=== PATIENT | female | born 1970 | race Caucasian/White ===

== ENCOUNTER 2023-08-17 20:33 | Inpatient (IN) | payer OTHER, SELFPAY ==
[2023-08-17 18:20] VITALS: BP 179/96
[2023-08-17 18:44] LABS: % Basophils 0.9 % (0-2); % Eosinophils 0.1 % (0-6); % Immature Granulocytes 2.6 % (0-0.5); % Lymphocytes 6.8 % (20.5-51.1); % Monocytes 7.5 % (1.7-9.3); % Neutrophils 82.1 % (42.2-75.2); Absolute Basophils 0.2 10^3/uL (0-0.2); Absolute Immature Granulocytes 0.6 10^3/uL (0-0.05); Absolute Lymphocytes 1.4 10^3/uL (1.2-3.4); Absolute Monocytes 1.6 10^3/uL (0.1-0.6); Absolute Neutrophils 17.2 10^3/uL (1.4-6.5); Hematocrit 40.3 % (37.0-47.0); Hemoglobin 13.4 g/dL (12.0-16.0); Mean Corp Hgb Conc. 33.3 g/dL (33.0-37.0); Mean Corpuscular Hgb 26.4 pg (27.0-31.0); Mean Corpuscular Volume 79.5 fL (81.0-99.0); Mean Platelet Volume 9.8 fL (7.4-10.4); Nucleated Red Blood Cells % 0 %; Platelet Count 399 10^3/uL (130-400); Red Blood Cell Count 5.07 10^6/uL (4.20-5.40); Red Cell Dist. Width 12.3 % (11.5-14.5); White Blood Cell Count 20.9 10^3/uL (4.8-10.8)
--- NOTE | 2023-08-17 18:52 | ED.GENMED ---
History of Present Illness
General
Chief Complaint: Skin Problem
Source: patient
Exam Limitations: none
Time Seen by Provider: 08/17/23 18:40
Travel History
Have you had any contact with someone who has COVID-19?: No
Do you have any symptoms of coronavirus? Fever > 100 degrees, chills, cough, shortness of breath, sore throat, loss of taste or smell, muscle aches, or headache?: No
History of Present Illness
History of Present Illness:
This is a 53 year old female that comes in with c/o right breast pain. States that she started on Thursday with this breast fullness and redness. States that now there is a black are and there is leakage with a fowl smell. States that she has a fever
and that there is pain in the right breast that she is not sleeping. States that she has nausea and some dizziness. Denies any chills, chest pain, SOB, abd pain, vomiting, diarrhea, headache, urinary burning.
Past History
Past History
ED Past Medical History: Other (IBS)
ED Past Surgical History: None
Social History
Tobacco: Non-smoker
Alcohol: None
Personal:
Living: with family
Review of Systems
Review of Systems
All Other Systems: ROS reviewed and negative except as documented in HPI and ROS
Constitutional: Reports fever (on and off); Denies chills
EENT: Reports no symptoms
Respiratory: Denies cough or trouble breathing
Cardiac: Reports no symptoms; Denies chest pain
ABD/GI: Reports no symptoms; Denies abdominal pain, nausea, vomiting or diarrhea
: Reports no symptoms; Denies dysuria, frequency or urgency
Musculoskeletal: Reports no symptoms
Skin: Reports other (right breast redness with black area)
Neurological: Reports dizzy; Denies headache
Psychiatric: Reports no symptoms
Phy Exam
General Physical Exam
General Presentation: no apparent distress (Temp at this time is 102.4)
General age: appears stated age
General Skin: warm and dry
General Habitus: normal
General Mental: alert
General Hydration: appears well hydrated
ENT Exam
ENT Exam: TM's normal, pharynx normal and neck supple
Eye Exam
Eye Exam: EOMI
Cardiovascular Exam
Cardiovascular Exam: regular rate/rhythm, no edema, no murmur and normal peripheral pulses
Pulmonary Exam
Pulmonary Exam: lungs clear, no respiratory distress, no rales, chest non tender, no crackles, no rhonchi, no wheezing and no cough
Gastrointestinal Exam
Gastrointestinal Exam: normal bowel sounds, non tender, soft, no organomegaly, no pulsatile mass and non distended
Musculoskeletal Exam
Musculoskeletal Exam: full ROM and no edema
Skin Exam
Skin Exam: normal color, no petechia and redness (Right lower half of breast red with necrotic area from about 3 to 6 o'clock. Breast is hard with fowl smell and slightly yellow tinged drainage)
Psychiatric Exam
Psychiatric Exam: normal mood/affect
Course
Orders/Labs/Results
Orders:
Orders
08/17/23 18:29
Comprehensive Metabolic Panel Urgent
Lactate Level [Lactic Acid] Urgent
Blood Culture Urgent
AMY Source: Blood/Venous
Specimen Description:
08/17/23 18:30
Complete Blood Count/With Diff Urgent
08/17/23 18:51
Vancomycin 1 Gram/200 ml [Vancocin] 1 gram in 200 ml IV NOW
08/17/23 18:52
Acetaminophen [Tylenol] 1,000 mg PO NOW STA
HYDROmorphone [Dilaudid] 1 mg IV NOW STA
Ondansetron Injectable [Zofran] 4 mg IV NOW STA
08/17/23 19:30
Admit/Transfer Patient As Directed
Co-Sign Provider:
Level of Care: Inpatient admission
Assign to:: Medical/Surgical
Physician / Group: lars
Diagnosis: breast cellulitis
Reason for Hospitalization: breast cellulitis
Expected length of stay greater than two midnights?: Yes
ELOS- Estimated Length of Stay in days: 2
I certify the patient meets the requirements for IP care: Yes
Code Status As Directed
Resuscitation Status: Full Code
Wound Culture [Wound/Abscess/Other Culture] Urgent
AMY Source: Breast
Specimen Description: Right
Date Specimen was Collected: 08/17/23
Time Specimen was Collected: 19:20
08/17/23 19:36
US Breast Right Ltd Urgent
Comment:
Reason For Exam: abscess, cancer
08/17/23 19:44
Ibuprofen [Motrin] 400 mg PO Q6HPRN PRN
08/17/23 20:00
Cefepime HCl [Maxipime] 1,000 mg IV Q12H
Flush (0.9% Sodium Chloride) [Flush (Nss)] See Dose Instructions IV PER PROTOCOL
Sterile Water [Sterile Water For Injection] 10 ml IV Q12H
08/17/23 23:08
HYDROmorphone [Dilaudid] 0.5 mg IV Q4HPRN PRN
08/18/23 01:07
Acetaminophen [Tylenol] 650 mg PO Q4HPRN PRN
Abnormal Lab Results
08/17/23 08/17/23
18:29 18:30
WBC 20.9 H 10^3/uL
(4.8-10.8)
MCV 79.5 L fL
(81.0-99.0)
MCH 26.4 L pg
(27.0-31.0)
Abs Immat Gran (auto) 0.6 H 10^3/uL
(0-0.05)
Absolute Neuts (auto) 17.2 H 10^3/uL
(1.4-6.5)
Absolute Monos (auto) 1.6 H 10^3/uL
(0.1-0.6)
Immature Gran % 2.6 H %
(0-0.5)
Neutrophils % 82.1 H %
(42.2-75.2)
Lymphocytes % 6.8 L %
(20.5-51.1)
Sodium 132 L mmol/L
(135-145)
Carbon Dioxide 16 L mmol/L
(22-30)
Creatinine 0.4 L mg/dL
(0.6-1.0)
Glucose 316 H mg/dl
(70-99)
Alkaline Phosphatase 195 H U/L
(38-126)
08/17/23 18:30
08/17/23 18:29
Leukocytosis, Absolute neuts elevated. sodium slightly low. carbon dioxide low. Glucose nonfasting. Alk phos elevation. Lactic acid normal at 1.5
Vital Signs
Initial and Last Documented VS:
Initial Vital Signs
Temp Pulse Resp BP Pulse Ox
99.3 F 137 20 179/96 97
08/17/23 18:20 08/17/23 18:20 08/17/23 18:20 08/17/23 18:20 08/17/23 18:20
Last Documented Vital Signs
Temp Pulse Resp BP Pulse Ox
99.3 F 137 20 179/96 97
08/17/23 18:20 08/17/23 18:20 08/17/23 18:20 08/17/23 18:20 08/17/23 18:20
MDM/Problems Addressed
Differential Diagnosis Includes:
Breast Cancer. Cellulitis of the right breast with Necrotic tissue
MDM/Problems Addressed:
This is a 53 year old female that comes in with c/o right breast pain. States that this started last Thursday and has continued to get worse. States that now she can't sleep and that the pain has increased.
Explained to patient that she will be admitted and started on Antibiotics. She will most likely see surgery and they will decide best course of action. Hospitalist notified
Chronic conditions affecting care:
NA
Acute Exacerbation and/or Progression of Chronic Illness:
NA
*Pulse Oximetry
Patient hypoxic: no
*EKG
Interpreted by ED Provider?: NA
Rate: EKG- N/A
*Three Dimensional Map Modeler Interpretation
Rate: Three Dimensional Map Modeler- N/A
*Critical Care Note
Total Time (30-74mins, 75-104mins- exclusive of procedures): Not Applicable
ED Attending Note
-
Portions of this chart may have been created with voice recognition software.� Occasional wrong word or��sound alike� substitutions may have occurred due to the inherent limitations of voice recognition software.
Discharge Plan
Departure
Patient Disposition: Admit
Date of Disposition: 08/17/23
Time of Disposition: 19:04
Admit to: Med/Surg
Presentation/result/management discussed w/ accepting MD/DO: Hospitalist
Patient with high blood pressure during this ER visit?: Yes
Condition: Good
Covid-19: Not Applicable
Discharge Problem:
Cellulitis of right breast, Necrotic breast Tissue
Interventions
Interventions:
*Risk Screen - Suicide Last Done: 08/17/23 20:39
*ED COVID-19 Vaccine History Last Done: 08/17/23 18:20
[2023-08-17 18:55] VITALS: BMI 37.5
[2023-08-17 18:57] LABS: Lactic Acid 1.5 mmol/L (0.7-2.0)
[2023-08-17 18:58] LABS: ALT (SGPT) 28 U/L (0-35); AST (SGOT) 20 U/L (14-36); Albumin 3.6 g/dl (3.5-5.0); Alkaline Phosphatase 195 U/L (38-126); Blood Urea Nitrogen 12 mg/dl (7-17); Calcium 9.6 mg/dl (8.4-10.2); Carbon Dioxide 16 mmol/L (22-30); Chloride 99 mmol/L (98-107); Estimated Creatinine Clearance 116 ml/min; Glucose 316 mg/dl (70-99); Sodium 132 mmol/L (135-145); Total Bilirubin 0.7 mg/dl (0.2-1.3); Total Protein 6.8 g/dl (6.3-8.2); eGFR > 60.00
[2023-08-17] MEDS: TYLENOL 1000 MG PO (19:07)
[2023-08-17] MEDS: ZOFRAN 4 MG IV (19:07)
[2023-08-17] MEDS: DILAUDID 1 MG IV (19:08)
[2023-08-17] MEDS: VANCOCIN 200 IV (19:08)
[2023-08-17 19:16] VITALS: BP 144/70
--- NOTE | 2023-08-17 19:45 | HPS.HSE ---
Family Physician
-
Family Physician:
Chief Complaint
-
breast pain
History of Present Illness
53-year-old female past medical history of IBS, anxiety presenting with right breast pain, redness, pain and discharge. Symptoms started a week ago with right breast fullness and redness. Symptoms are getting worse and over the past few days there
is a black area medial to the nipple. There is foul-smelling drainage medially. Patient denies any injury or trauma or personal history of breast cancer. She denies any nipple discharge.
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
Patient has not been compliant with her mammograms.
Patient had an aunt with breast cancer.
Patient denies any smoking or alcohol use.
Medical History
Past Medical History
Past Medical History: Reports Other ( IBS, anxiety)
Past Surgical History: Reports None
Social History
Tobacco: Non-smoker
Alcohol: None
Drug: None
Family History
Family History: Not pertinent
Allergies / Home Medications
Allergies reflects when Allergies were last updated in [facility].
Home Medications with original date entered in [facility]
Allergy/Medication List:
Allergies
Allergy/AdvReac Type Severity Reaction Status Date / Time
Penicillins Allergy Unknown Verified 08/17/23 18:21
Review of Systems
-
History Source: Patient
A 12 point ROS was completed and negative except as noted: Yes
Constitutional: Reports No Symptoms
EENT: Reports No Symptoms
Respiratory: Reports No Symptoms
Cardiac: Reports No Symptoms
Abdomen/GI: Reports No Symptoms
: Reports No Symptoms
Musculoskeletal: Reports No Symptoms
Skin: Reports See HPI
Neurological: Reports No Symptoms
Endocrine: Reports No Symptoms
Hematologic/Lymphatic: Reports No Symptoms
Psych: Reports No Symptoms
Physical Exam
Vital Signs
Vital Signs
Temp Pulse Resp BP Pulse Ox
99.3 F 137 20 179/96 97
08/17/23 18:20 08/17/23 18:20 08/17/23 18:20 08/17/23 18:20 08/17/23 18:20
Physical Exam
General: Well Developed, Well Nourished and No Apparent Distress
HEENT: NormoCephalic, Moist mucous membranes and Atraumatic
Respiratory: Clear
Cardiac: S1/S2 and Regular Rhythm; No Murmur or Rub
GI: Soft, Non Tender, Non Distended and Normal Bowel Sounds; No Organomegaly
Rectal: Deferred by Provider
Musculoskeletal: No Clubbing, No Cyanosis and No Edema
Skin: Other (right breast erythema, necrotic region medial to nipple ); No Rash
Neuro: Nonfocal/grossly intact
Laboratory Results
-
08/17/23 18:30
08/17/23 18:29
Laboratory Results
Lactic Acid 1.5 mmol/L (0.7-2.0) 08/17/23 18:29
Total Bilirubin 0.7 mg/dl (0.2-1.3) 08/17/23 18:29
AST 20 U/L (14-36) 08/17/23 18:29
ALT 28 U/L (0-35) 08/17/23 18:29
Alkaline Phosphatase 195 U/L (38-126) H 08/17/23 18:29
Data Reviewed
-
Lab Data: Labs Reviewed by me
Old Records: Reviewed
Impression/Plan
-
IMPRESSION:
PLAN:
# Sepsis (fever, tachycardia) secondary to severe right breast cellulitis with necrosis
-Check blood cultures, wound culture
-Check ultrasound to evaluate for abscess
-Vancomycin, cefepime
-Breast surgeon consulted
-Pain control
# Hyperglycemia
-Check hemoglobin A1c, possible underlying diabetes
Obesity
Anxiety
IBS
Full code
DVT prophylaxis-SCDs
Regular diet
[2023-08-17 20:00] VITALS: BP 133/54
[2023-08-17 20:33] VITALS: BMI 38.1
[2023-08-17] MEDS: MAXIPIME 1000 MG IV (20:51)
[2023-08-17 21:00] VITALS: BP 108/49
[2023-08-17] MEDS: DILAUDID 0.5 MG IV (21:37)
[2023-08-17 22:00] VITALS: BP 129/75
[2023-08-17 23:00] VITALS: BP 140/84
[2023-08-17] MEDS: STERILE WATER FOR INJECTION IV (23:34)
[2023-08-18] VITALS (16 sets, daily range): BP systolic 116–177; BP diastolic 65–107; BMI 38.1
[2023-08-18] MEDS: NSS 1000 IV (01:29)
[2023-08-18] MEDS: DILAUDID 0.5 MG IV ×4 (01:30→20:34)
[2023-08-18 05:20] LABS: % Basophils 0.6 % (0-2); % Eosinophils 0.1 % (0-6); % Immature Granulocytes 3.9 % (0-0.5); % Lymphocytes 6.7 % (20.5-51.1); % Neutrophils 79.7 % (42.2-75.2); Absolute Basophils 0.1 10^3/uL (0-0.2); Absolute Immature Granulocytes 0.8 10^3/uL (0-0.05); Absolute Lymphocytes 1.3 10^3/uL (1.2-3.4); Absolute Monocytes 1.8 10^3/uL (0.1-0.6); Absolute Neutrophils 15.5 10^3/uL (1.4-6.5); Hematocrit 37.8 % (37.0-47.0); Hemoglobin 12.4 g/dL (12.0-16.0); Mean Corp Hgb Conc. 32.8 g/dL (33.0-37.0); Mean Corpuscular Volume 82.2 fL (81.0-99.0); Mean Platelet Volume 9.8 fL (7.4-10.4); Nucleated Red Blood Cells % 0 %; Platelet Count 372 10^3/uL (130-400); Red Cell Dist. Width 12.2 % (11.5-14.5); White Blood Cell Count 19.5 10^3/uL (4.8-10.8)
[2023-08-18 05:39] LABS: ALT (SGPT) 23 U/L (0-35); AST (SGOT) 19 U/L (14-36); Albumin 2.8 g/dl (3.5-5.0); Alkaline Phosphatase 146 U/L (38-126); Blood Urea Nitrogen 12 mg/dl (7-17); Calcium 9.1 mg/dl (8.4-10.2); Carbon Dioxide 12 mmol/L (22-30); Chloride 100 mmol/L (98-107); Estimated Creatinine Clearance 117 ml/min; Glucose 315 mg/dl (70-99); Potassium 3.7 mmol/L (3.5-5.1); Sodium 133 mmol/L (135-145); Total Bilirubin 0.7 mg/dl (0.2-1.3); Total Protein 5.6 g/dl (6.3-8.2); eGFR > 60.00
[2023-08-18] MEDS: STERILE WATER FOR INJECTION 10 ML IV (08:24)
[2023-08-18] MEDS: MAXIPIME 1000 MG IV (08:24)
--- NOTE | 2023-08-18 08:29 | W.PN.UPDATE ---
Update Note
Progress Note Update
Pt presented with cellulitis and necrosis of the left breast. Will need debridement in the OR. I will see her after [facility] cases.
--- NOTE | 2023-08-18 08:35 | PTCARENOTE ---
Patient for OR today, NPO. Patient c/o 8 right breast pain, Dilaudid given with moderate relief. Patient screams and curses when RN touched right breast. Right breast has a FOUL oder, serous/brown drainage, red, swollen, war, with necrotic
center about 2 inches. Patient ambulating to bathroom without difficulty, but limited ROM of right arm due to pain. Spouse at bedside.
--- NOTE | 2023-08-18 10:32 | CON.ID ---
Consultation
-
Date/Time Consultation Requested: 08/18/23 9:04
Date/Time Consultation Performed: 08/18/23 10:35
Requesting Provider: Dr Vasquez
Performing Provider: Dr Mccarthy
Reason for Consultation: necrotic breast wound
Chief Complaint / Past History
Chief Complaint
breast pain
History of Present Illness
Ms Lau is a 53 year ol female with history of IBS who presented here yesterday for right breat pain, fullness, redness and a new black area medial to the nipple. Reports sysmptoms began with a 'lesion' about 1 week ago and progressed last
night. There is foul-smelling drainage medially. No injury or trauma. No known history of breast cancer. No nipple discharge. Not compliant with mammograms.
Since arrival here she has been afebrile, bp stable,wbc 20.9 today 19.5, hgb 12.4, plt 372, there is a left shift, cr 0.4, na 133, co2 12, lactic acid on arrival 1.5, t bili 0.67, ast 19, alt 23, alk phos 146, breast US completed but not yet read,
wound culture has been done - gram stain moderate GPCs, rare GPR, single blood culture done thus far, currently on cefepime only, has also received a dose of vancomycin. Reports unknown allergy to penicillin. Has been seen by Dr Nelson - breast
surgery and is planned for debridement in the OR later today. ID is consulted for assistance with management.
Past History
Additional Past Medical History:
anxiety
Additional Past Surgical History:
none
Allergy History:
Penicillins Allergy (Verified 08/17/23 18:21)
Unknown
Medications Reviewed: Yes
Social History
Tobacco: Non-Smoker
Alcohol: None
Drug: None
Family History
Family History: Not Pertinent
Review of Systems
Review of Systems
General: Negative Fever or Chills
All systems: All other systems were reviewed and were negative
Vital Signs
Temp Pulse Resp BP Pulse Ox
98.9 F 101 22 151/81 85
08/18/23 03:56 08/18/23 03:56 08/18/23 03:56 08/18/23 04:57 08/18/23 08:20
Physical Exam
Physical Exam
Constitutional: No Acute Distress
Cardiovascular: Regular Rate and S1/S2; Negative Murmur or Rub
Pulmonary: Clear and Symmetric; Negative Wheezes, Rales or Rhonchi
Gastrointestinal: Soft, Non Tender, Non Distended and Normal Bowel Sounds
Skin: Warm, Dry and Other (necrotic skin several inches long by several inches wide over the right breast with surrounding erythema, no fluctuance, area is quite tender, serous drainage); Negative Jaundice
Neurological: Awake
Lab / Diagnostic Study Results
08/18/23 05:03
08/18/23 05:03
Abs Immat Gran (auto) 0.8 10^3/uL (0-0.05) H 08/18/23 05:03
Absolute Neuts (auto) 15.5 10^3/uL (1.4-6.5) H 08/18/23 05:03
Absolute Lymphs (auto) 1.3 10^3/uL (1.2-3.4) 08/18/23 05:03
Absolute Monos (auto) 1.8 10^3/uL (0.1-0.6) H 08/18/23 05:03
Absolute Basos (auto) 0.1 10^3/uL (0-0.2) 08/18/23 05:03
Immature Gran % 3.9 % (0-0.5) H 08/18/23 05:03
Neutrophils % 79.7 % (42.2-75.2) H 08/18/23 05:03
Lymphocytes % 6.7 % (20.5-51.1) L 08/18/23 05:03
Monocytes % 9.0 % (1.7-9.3) 08/18/23 05:03
Eosinophils % 0.1 % (0-6) 08/18/23 05:03
Basophils % 0.6 % (0-2) 08/18/23 05:03
Lactic Acid 1.5 mmol/L (0.7-2.0) 08/17/23 18:29
Microbiology Results
Micro:
08/17/23 19:30 Wound Culture - Pending
Breast - Right Gram Stain - Preliminary
08/17/23 18:29 Blood Culture - Pending
Blood/Venous
Assessment / Plan
Breast Cellulitis and Necrotic Lesion
Suspected breast cancer
Class II obesity
Reported penicillin allergy as a child
- patient agreeable to unasyn challenge - doubt that she's truly allergic
- blood cultures x2
- start unasyn
- breast surgeon has been consulted
- follow clinically
[2023-08-18] MEDS: SODIUM BICARBONATE 1300 MG PO ×2 (10:36→22:15)
[2023-08-18] MEDS: SODIUM BICARBONATE 1150 MEQ IV (10:36)
[2023-08-18 12:48] LABS: Glycohemoglobin (HgbA1c) 12.9 % (4.0-5.6)
--- NOTE | 2023-08-18 12:50 | PTCARENOTE ---
1250 Patient sent to OR., Kacy in OR updated.
--- NOTE | 2023-08-18 14:02 | W.PN.HOSP.TC ---
Addendum entered and electronically signed by Pavan Vasquez MD 08/18/23 14:19:
Metabolic acidosis
Continue with bicarb drip, p.o. bicarb
Repeat BMP later today
Original Note:
Today's Communication/Plan
-
Monitor vital signs and see plan
OR today
Continue with antibiotics
Pain control
Now with diabetes, will need insulin. Diabetes BEADER consulted
Assessment / Plan
Assessment / Plan
Sepsis (fever, tachycardia) secondary to severe right breast cellulitis with necrosis
-Check blood cultures, wound culture
US neg for discrete abscess; does have significant edema. Difficult to differentiate between neoplastic and infectious etiologies.
-ID following; abx changed to unasyn
-Breast surgeon consulted; will need debridement; concern for malignancy
-Pain control
# Hyperglycemia
A1c >12; now with diabetes
consult diabetes BEADER
will need to start insulin
Obesity likely 2/2 excess calories
Anxiety
IBS
Full code
DVT prophylaxis-SCDs
General: Well Developed, Well Nourished and No Apparent Distress
HEENT: NormoCephalic, Moist mucous membranes and Atraumatic
Respiratory: Clear
Cardiac: S1/S2 and Regular Rhythm; No Murmur or Rub
GI: Soft, Non Tender, Non Distended and Normal Bowel Sounds; No Organomegaly
Rectal: Deferred by Provider
Musculoskeletal: No Clubbing, No Cyanosis and No Edema
Skin: Other (right breast erythema, necrotic region medial to nipple ); No Rash
Neuro: Nonfocal/grossly intact
Anticipated Discharge: > 48 hours
Subjective/Interval History
-
Date of Service: August 18, 2023
has some pain
Objective Data
-
Labs:
Laboratory Results
08/18/23
05:03
WBC 19.5 H
Hgb 12.4
Hct 37.8
Plt Count 372
Sodium 133 L
Potassium 3.7
Chloride 100
Carbon Dioxide 12 L*
BUN 12
Creatinine 0.4 L
Glucose 315 H
Calcium 9.1
Total Bilirubin 0.7
AST 19
ALT 23
Alkaline Phosphatase 146 H
Vital Signs:
Vital Signs
Temp Pulse Resp BP Pulse Ox
99.9 F 113 18 118/85 94
08/18/23 12:29 08/18/23 12:29 08/18/23 12:29 08/18/23 12:29 08/18/23 12:29
I&O
08/17/23 08/18/23 08/19/23
06:59 06:59 06:59
Intake Total 480 / 480
Balance 480 / 480
--- NOTE | 2023-08-18 14:55 | PN.DE.MGMTRT ---
Insulin Management
- -
: Diabetes Management Consult:
53 year old female who presented with severe cellulitis and necrosis of the right breast concerning for Malignancy.
PMH: IBS and Anxiety. New dx of T2DM, A1C 12.9%. Glucose on admission 316, FBG 315 this AM.
Pt is currently in the OR for debridement and not available for interview.
Currently on low corrective insulin only.
Will start Lantus 12 units, 1st dose @HS, AC NovoLog 4 units and low corrective with meals.
Hold AC NovoLog if pt remains NPO after procedure and utilize corrective insulin.
Change diet to 1800 rkis, Accucheks AC/HS and 3am blood sugar.
start Metformin 500mg BID, 1st dose tomorrow AM.
Will provide meter and Insulin instructions when pt is ready for diabetes Education.
Will follow closely and make necessary insulin dose adjustments as A1C 12.9%
Diabetes History
- -
Type of Diabetes: 2 requiring insulin
Pre-Admission Diabetes Regimen
08/17/23 08/18/23
18:29 05:03
Creatinine 0.4 L 0.4 L
Lab Results
Hemoglobin A1c 12.9 % (4.0-5.6) H 08/18/23 05:03
Insulin Pump Settings
IP Diabetes Regimen
08/17/23 08/18/23
18:29 05:03
Glucose 316 H 315 H
Meal type: Breakfast
Patient Education
[2023-08-18] MEDS: UNASYN IV ×2 (15:20→18:47)
[2023-08-18 15:26] LABS: Glucose - Point of Care 283 mg/dl (70-99)
[2023-08-18 16:48] LABS: Glucose - Point of Care 266 mg/dl (70-99)
[2023-08-18] MEDS: NOVOLOG vial 2 UNITS SC (17:08)
--- NOTE | 2023-08-18 17:45 | PTCARENOTE ---
Received patient from PACU s/p debridment of right breast (surgical bra on). Site is dry and intact. Vitals stable on 4L of O2. Blood sugar on arrival is 279.
[2023-08-18 18:03] LABS: Glucose - Point of Care 279 mg/dl (70-99)
[2023-08-18 18:45] LABS: Blood Urea Nitrogen 12 mg/dl (7-17); Calcium 8.7 mg/dl (8.4-10.2); Carbon Dioxide 17 mmol/L (22-30); Chloride 101 mmol/L (98-107); Estimated Creatinine Clearance 117 ml/min; Glucose 296 mg/dl (70-99); Potassium 3.4 mmol/L (3.5-5.1); Sodium 134 mmol/L (135-145); eGFR > 60.00
[2023-08-18] MEDS: NOVOLOG FLEXPEN-LOW RESISTANCE SC (18:47)
[2023-08-18] MEDS: NOVOLOG FLEXPEN 4 UNITS SC (18:48)
[2023-08-18] MEDS: NOVOLOG FLEXPEN-LOW RESISTANCE 3 UNITS SC (18:49)
[2023-08-18] MEDS: SODIUM BICARBONATE PO (20:02)
[2023-08-18] MEDS: TYLENOL 650 MG PO (20:35)
[2023-08-18 21:24] LABS: Glucose - Point of Care 306 mg/dl (70-99)
[2023-08-18] MEDS: LANTUS 0.119999999999999996 UNITS SC (22:10)
[2023-08-18] MEDS: NOVOLOG FLEXPEN 5 UNITS SC (22:11)
[2023-08-19 00:01] LABS: Glucose - Point of Care 324 mg/dl (70-99)
[2023-08-19 00:08] VITALS: BP 133/78
[2023-08-19] MEDS: UNASYN IV ×5 (00:28→23:56)
[2023-08-19] MEDS: NOVOLOG FLEXPEN 10 UNITS SC (00:30)
[2023-08-19] MEDS: MOTRIN 400 MG PO ×2 (00:32→13:19)
[2023-08-19 02:45] LABS: Glucose - Point of Care 287 mg/dl (70-99)
[2023-08-19 02:56] VITALS: BP 118/66
[2023-08-19] MEDS: DILAUDID 0.5 MG IV ×4 (04:33→20:21)
[2023-08-19] MEDS: SODIUM BICARBONATE 1150 MEQ IV (04:38)
[2023-08-19 06:40] LABS: % Basophils 0.8 % (0-2); % Eosinophils 0.1 % (0-6); % Immature Granulocytes 2.4 % (0-0.5); % Lymphocytes 12.3 % (20.5-51.1); % Monocytes 6.6 % (1.7-9.3); % Neutrophils 77.8 % (42.2-75.2); Absolute Basophils 0.1 10^3/uL (0-0.2); Absolute Immature Granulocytes 0.4 10^3/uL (0-0.05); Absolute Lymphocytes 1.8 10^3/uL (1.2-3.4); Absolute Neutrophils 11.2 10^3/uL (1.4-6.5); Hematocrit 33.2 % (37.0-47.0); Mean Corp Hgb Conc. 33.1 g/dL (33.0-37.0); Mean Corpuscular Hgb 27.4 pg (27.0-31.0); Mean Corpuscular Volume 82.8 fL (81.0-99.0); Mean Platelet Volume 10.2 fL (7.4-10.4); Nucleated Red Blood Cells % 0 %; Platelet Count 335 10^3/uL (130-400); Red Blood Cell Count 4.01 10^6/uL (4.20-5.40); Red Cell Dist. Width 12.3 % (11.5-14.5); White Blood Cell Count 14.4 10^3/uL (4.8-10.8)
[2023-08-19 07:10] LABS: Glucose - Point of Care 318 mg/dl (70-99)
[2023-08-19 07:12] LABS: Blood Urea Nitrogen 14 mg/dl (7-17); Calcium 8.3 mg/dl (8.4-10.2); Carbon Dioxide 26 mmol/L (22-30); Chloride 96 mmol/L (98-107); Estimated Creatinine Clearance 117 ml/min; Glucose 311 mg/dl (70-99); Potassium 2.9 mmol/L (3.5-5.1); Sodium 132 mmol/L (135-145); eGFR > 60.00
[2023-08-19 07:30] VITALS: BP 130/79
--- NOTE | 2023-08-19 07:30 | PN.DE.MGMTRT ---
Insulin Management
- -
: Diabetes Management Consult:
53 year old female who presented with severe cellulitis and necrosis of the right breast concerning for Malignancy.
PMH: IBS and Anxiety. New dx of T2DM, A1C 12.9%. Glucose on admission 316, FBG 315 this AM.
Pt is currently in the OR for debridement and not available for interview.
Currently on low corrective insulin only.
Will start Lantus 12 units, 1st dose @HS, AC NovoLog 4 units and low corrective with meals.
Hold AC NovoLog if pt remains NPO after procedure and utilize corrective insulin.
Change diet to 1800 kris, Accucheks AC/HS and 3am blood sugar.
start Metformin 500mg BID, 1st dose tomorrow AM.
Will provide meter and Insulin instructions when pt is ready for diabetes Education.
Will follow closely and make necessary insulin dose adjustments as A1C 12.9%
08/19/2023 Diabetes Management Follow up
POD 1 s/p debridement R breast. Patient consumed dinner, glucose trended up to 306. Will increase AC novolog to 6 units. Metformin 500 mg BID to start this AM. Received 12 units lantus @ HS. Fasting glucose 318. Will increase hs lantus to 20
units. Will follow.
Diabetes History
- -
Type of Diabetes: 2 requiring insulin
Pre-Admission Diabetes Regimen
08/18/23 08/19/23
18:15 05:10
Creatinine 0.3 L 0.4 L
Lab Results
Hemoglobin A1c 12.9 % (4.0-5.6) H 08/18/23 05:03
Insulin Pump Settings
IP Diabetes Regimen
08/18/23 08/18/23 08/18/23
15:25 16:47 18:01
Glucose
POC Glucose 283 H 266 H 279 H
08/18/23 08/18/23 08/19/23
18:15 21:22 00:00
Glucose 296 H
POC Glucose 306 H 324 H
08/19/23 08/19/23 08/19/23
02:43 05:10 07:08
Glucose 311 H
POC Glucose 287 H 318 H
Meal type: Dinner
Meal type: Breakfast
Patient Education
[2023-08-19] MEDS: NOVOLOG FLEXPEN 6 UNITS SC ×3 (08:33→17:06)
[2023-08-19] MEDS: GLUCOPHAGE 500 MG PO ×2 (08:33→17:05)
[2023-08-19] MEDS: NOVOLOG FLEXPEN-LOW RESISTANCE 4 UNITS SC (08:34)
--- NOTE | 2023-08-19 08:44 | W.PN.UPDATE ---
Update Note
Progress Note Update
Pt taken to OR last night for drainage and debridement of necrotic breast tissue. Over 50% of the breast tissue was . Please order gauge wet to dry. Await cultures and cleansing of the wound. May need enzymatic agent. Please ask Wound Care to
see. She will need post-hospital follow up [facility] for wound vac placement. Left breast mammo needed -may do as outpatient.
--- NOTE | 2023-08-19 08:59 | W.IMMPOSTOP ---
Surgical Immed Post Op Note
-
Primary Surgeon: Omar
Assisting Surgeon: None
Pre-op Diagnosis: Right breast abscess and necrosis
Post-op Diagnosis: Same
Procedure Performed: Incision and drainage right breast abscess and debridement necrotic breast tissue
Anesthesia Type: GET
Specimen / Cultures: Breast tissue and necrotic tissue
Estimated Blood Loss: 20cc
Complications: None
Operative Findings: Extensive necrosis and liquifaction of approx. 50% of her breast
--- NOTE | 2023-08-19 09:01 | CON.GS ---
Consultation
-
Date/Time Consultation Requested: 08/17/22
Date/Time Consultation Performed: 08/18/22
Requesting Provider: Brii
Performing Provider: Omar
Reason for Consultation: breast infection
Medical History
-
Chief Complaint: 'Bump on my breast'
History of Present Illness:
53 Y/O female with no significant risk factors for breast cancer presented with supposed 4 day history of erythema of her right breast and a dark patch of skin. She was found to have hyperglycemia and undiagnosed and treated diabetes. Imaging
shows extensive swelling and no identifiable mass.
Past Medical History
Past Medical History: GERD
Past Surgical History: None
Social History
Personal:
Living: With Family
Family History
Family History: Reviewed & Not Pertinent
Allergies / Home Medications
Allergy/AdvReac Type Severity Reaction Status Date / Time
Penicillins Allergy Unknown Verified 08/17/23 18:21
Medication Instructions Recorded Confirmed Type
Probiotic For Digestion 1 tab PO DAILY probiotic 08/17/23 08/17/23 History
acetaminophen 500 mg tablet 500 mg PO BIDPRN PRN mild pain 08/17/23 08/17/23 History
(Tylenol Extra Strength)
famotidine 20 mg tablet (Pepcid) 20 mg PO DAILY PRN indigestion 08/17/23 08/17/23 History
ibuprofen 200 mg tablet (Advil) 400 mg PO Q6H PRN mild pain 08/17/23 08/17/23 History
quhaqpxj-ausc-sjou 8 mg-folic 400 1 tab PO DAILY supplement 08/17/23 08/17/23 History
mcg-K 50 mcg-lutein 300 mcg tablet
(Centrum Silver Women)
Review of Systems
-
Unable to obtain full review of systems at this time due to: Other (female in acute distress with foul-smelling breast wound)
History Source: Patient
All other systems: Negative unless noted
A 10 point review of systems was completed, and was negative except as per HPI.
Physical Exam
Vital Signs
Temp Pulse Resp BP Pulse Ox
99.1 F 102 19 130/79 95
08/19/23 07:30 08/19/23 07:30 08/19/23 07:30 08/19/23 07:30 08/19/23 07:30
08/18/23 08/19/23 08/20/23
06:59 06:59 06:59
Actual Weight 94.5 kg
Body Mass Index (BMI) 38.1
Lab Results
08/19/23 05:10
08/19/23 05:10
WBC 14.4 10^3/uL (4.8-10.8) H 08/19/23 05:10
Hgb 11.0 g/dL (12.0-16.0) L 08/19/23 05:10
Hct 33.2 % (37.0-47.0) L 08/19/23 05:10
Plt Count 335 10^3/uL (130-400) 08/19/23 05:10
Abs Immat Gran (auto) 0.8 10^3/uL (0-0.05) H 08/18/23 05:03
Neutrophils % 79.7 % (42.2-75.2) H 08/18/23 05:03
Physical Exam
General: Pain
HEENT: Normocephalic and Anicteric
Respiratory: Clear
Cardiac: Regular Rhythm
Breast: Other (extensive erythema right breast with necrotic skin patch)
Musculoskeletal: No Clubbing and Cyanosis
Skin: Other (see above on breast)
Neuro: Awake and Oriented
Data Reviewed
-
Radiology: Image Personally Visualized and interpreted, Report Reviewed by me and Discussed with Physician
Ultrasound: Image Personally Visualized and interpreted, Report Reviewed by me, Discussed with Physician and Discussed with Patient
Labs: Labs Reviewed by me, Discussed with Patient and Discussed with Family
Total Time Spent with Patient (in minutes): 20 mins
Assessment / Plan
-
Breast abscess with necrosis. Patient to OR urgently for I & D and debridement.
[2023-08-19] MEDS: KCL 40 MEQ PO ×2 (09:45→12:38)
[2023-08-19] MEDS: NOVOLOG FLEXPEN SC (09:45)
[2023-08-19] MEDS: SODIUM BICARBONATE PO (09:45)
--- NOTE | 2023-08-19 10:28 | PN.DE.MGMTRT ---
Insulin Management
- -
: Diabetes Management Consult:
53 year old female who presented with severe cellulitis and necrosis of the right breast concerning for Malignancy.
PMH: IBS and Anxiety. New dx of T2DM, A1C 12.9%. Glucose on admission 316, FBG 315 this AM.
Pt is currently in the OR for debridement and not available for interview.
Currently on low corrective insulin only.
Will start Lantus 12 units, 1st dose @HS, AC NovoLog 4 units and low corrective with meals.
Hold AC NovoLog if pt remains NPO after procedure and utilize corrective insulin.
Change diet to 1800 krsi, Accucheks AC/HS and 3am blood sugar.
start Metformin 500mg BID, 1st dose tomorrow AM.
Will provide meter and Insulin instructions when pt is ready for diabetes Education.
Will follow closely and make necessary insulin dose adjustments as A1C 12.9%
08/19/2023 Diabetes Management Follow up
POD 1 s/p debridement R breast. Patient consumed dinner, glucose trended up to 306. Will increase AC novolog to 6 units. Metformin 500 mg BID to start this AM. Received 12 units lantus @ HS. Fasting glucose 318. Will increase hs lantus to 20
units. Will follow.
08/19/2023 Diabetes Education
Patient awake and alert. States she has not been to a doctor in 4 or more years. Provided Contour Next glucose monitor and instructed on procedure to test glucose. Patient states she is very familiar because most of her family has diabetes. I
discussed her A1C of 12.9%, which she knew was high, and goal to get down to less than 7%. Instructed on use of prefilled insulin pen. Will ask nursing to have patient prepare and take her insulin with pen to reinforce steps. Printed step by step
instructions given to patient as well.
Diabetes History
- -
Type of Diabetes: 2 requiring insulin
Pre-Admission Diabetes Regimen
08/18/23 08/19/23
18:15 05:10
Creatinine 0.3 L 0.4 L
Lab Results
Hemoglobin A1c 12.9 % (4.0-5.6) H 08/18/23 05:03
Insulin Pump Settings
IP Diabetes Regimen
08/18/23 08/18/23 08/18/23
15:25 16:47 18:01
Glucose
POC Glucose 283 H 266 H 279 H
08/18/23 08/18/23 08/19/23
18:15 21:22 00:00
Glucose 296 H
POC Glucose 306 H 324 H
08/19/23 08/19/23 08/19/23
02:43 05:10 07:08
Glucose 311 H
POC Glucose 287 H 318 H
Meal type: Dinner
Patient Education
[2023-08-19 11:41] LABS: Glucose - Point of Care 274 mg/dl (70-99)
--- NOTE | 2023-08-19 11:42 | W.PN.HOSP.TC ---
Today's Communication/Plan
-
Monitor vital signs see plan
Continue with insulin
Follow fever curve
Continue antibiotics
Monitor blood culture
Follow wound culture
Replete potassium
Assessment / Plan
Assessment / Plan
Sepsis (fever, tachycardia) secondary to severe right breast cellulitis with necrosis
-bcx 08/17 with gram-positive cocci in clusters,bcx from 08/18 pending. Wound culture with Proteus
US neg for discrete abscess; does have significant edema. Difficult to differentiate between neoplastic and infectious etiologies.
s/p debridment by Dr Nelson. f/u cx
-ID following; abx changed to unasyn
-Breast surgeon following
-Pain control
# Hyperglycemia
A1c >12; now with diabetes, new onset
diabetes SUIT MAKER following
started on insulin,metformin
hypokalemia
replete
Hyponatremia
Monitor
Metabolic acidosis on admission
Now improved, stop bicarb
Obesity likely 2/2 excess calories
Anxiety
IBS
Full code
DVT prophylaxis-SCDs
General: Well Developed, Well Nourished and No Apparent Distress
HEENT: NormoCephalic, Moist mucous membranes and Atraumatic
Respiratory: Clear
Cardiac: S1/S2 and Regular Rhythm; No Murmur or Rub
GI: Soft, Non Tender, Non Distended and Normal Bowel Sounds; No Organomegaly
Rectal: Deferred by Provider
Musculoskeletal: No Clubbing, No Cyanosis and No Edema
Skin: Other (right breast erythema)
Neuro: Nonfocal/grossly intact
Anticipated Discharge: > 48 hours
Subjective/Interval History
-
Date of Service: August 19, 2023
has some pain
Objective Data
-
Labs:
Laboratory Results
08/19/23
05:10
WBC 14.4 H
Hgb 11.0 L
Hct 33.2 L
Plt Count 335
Sodium 132 L
Potassium 2.9 L
Chloride 96 L
Carbon Dioxide 26
BUN 14
Creatinine 0.4 L
Glucose 311 H
Calcium 8.3 L
Vital Signs:
Vital Signs
Temp Pulse Resp BP Pulse Ox
99.1 F 102 19 130/79 95
08/19/23 07:30 08/19/23 07:30 08/19/23 07:30 08/19/23 07:30 08/19/23 07:30
I&O
08/18/23 08/19/23 08/20/23
06:59 06:59 06:59
Intake Total 480 / 480 2160 / 2160
Balance 480 / 480 2160 / 2160
[2023-08-19 11:44] VITALS: BP 148/88
[2023-08-19] MEDS: MIRALAX 17 GRAMS PO (11:57)
[2023-08-19] MEDS: TYLENOL 650 MG PO ×3 (11:57→22:30)
[2023-08-19] MEDS: COLACE 100 MG PO ×2 (11:57→20:18)
[2023-08-19] MEDS: NOVOLOG FLEXPEN-LOW RESISTANCE 3 UNITS SC ×2 (11:58→17:05)
--- NOTE | 2023-08-19 13:34 | PTCARENOTE ---
practiced with patient on how to properly give herself insulin. Pt did well and will practice again at dinner time.
--- NOTE | 2023-08-19 14:26 | W.PN.ID1 ---
Date of Service
Date of Service: August 19, 2023
Today's Communication
- continue unasyn
Assessment / Plan
Breast Cellulitis/abscess
Suspected breast cancer
DM2 - new diagnosis
Class II obesity
- s/p�Incision and drainage right breast abscess and debridement necrotic breast tissue - about 50% of the breast
- wound cultures proteus, gram stain polymicrobial
- blood cultures x2 in progress -single culture with CONS - likely contaminant
- continue unasyn
- pathology pending
- follow clinically
Chief Complaint
-: Other (breast cellulitis)
Subjective / Review of Systems
no further fevers
bp stable
leukocytosis improving
L shift improving
cr stable
wound cx: proteus, CONS
Vital Signs / Physical Exam
Vital Signs
Vital Signs
Temp Pulse Resp BP Pulse Ox
99.9 F 109 19 148/88 90
08/19/23 11:44 08/19/23 11:44 08/19/23 11:44 08/19/23 11:44 08/19/23 11:44
Physical Exam
Constitutional: No Acute Distress
Cardiovascular: Regular Rate and S1/S2; Negative Murmur or Rub
Pulmonary: Clear and Symmetric; Negative Wheezes or Rales
Gastrointestinal: Soft, Non Tender, Non Distended and Normal Bowel Sounds
Skin: Warm and Dry; Negative Rash or Jaundice
Wound: Other (dressing take down deferred to surgery)
Objective Data
Lab Data
Lab Results
08/19/23 05:10
08/19/23 05:10
Estimated Creat Clear 117 ml/min 08/19/23 05:10
Lactic Acid 1.5 mmol/L (0.7-2.0) 08/17/23 18:29
Total Bilirubin 0.7 mg/dl (0.2-1.3) 08/18/23 05:03
AST 19 U/L (14-36) 08/18/23 05:03
ALT 23 U/L (0-35) 08/18/23 05:03
Alkaline Phosphatase 146 U/L (38-126) H 08/18/23 05:03
Most recent labs reviewed.
Micro Results:
08/17/23 19:30 Wound Culture - Final
Breast - Right Proteus mirabilis
Gram Stain - Final
08/18/23 15:30 Anaerobic Culture - Preliminary
Abscess Culture pending. Anaerobic cultures are examined after 3
days incubation. Additional information to follow.
08/18/23 15:30 Wound Culture - Preliminary
Abscess Proteus mirabilis
Gram Stain - Preliminary
08/17/23 18:29 Blood Culture - Preliminary
Blood/Venous Coagulase neg. staphylococcus
Additional testing on request
Gram Stain - Preliminary
08/18/23 18:15 Blood Culture - Pending
Blood/Venous
[2023-08-19 15:30] VITALS: BP 119/77
--- NOTE | 2023-08-19 15:34 | CM ---
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 Lives with and 2 childrem (17 and 23). Two story home with B/B on 2nd floor and 1/2 on 1st. No DME, No services. Pharmacy is [facility] at [address] [facility] in [place]. Patient does not have a
PCP at this time. Anticipate may need HH VN at discharge.
--- NOTE | 2023-08-19 16:15 | WOUNDNOTE ---
R BREAST (with photo flash)
--- NOTE | 2023-08-19 16:16 | WOUNDNOTE ---
R BREAST (Undermines about 9cm laterally and 5cm medially)
--- NOTE | 2023-08-19 16:24 | WOUNDNOTE ---
[facility] RN note: Patient admitted with breast cellulitis, newly diagnosed DM. s/p OR I+D of necrotic tissue yesterday by Dr. Nelson. Patient lives with spouse.
See H&P for complete history.
PMH: IBS, obesity, anxiety.
Wound Location and type/assessment: Patient admitted with: R breast necrotic wound. Imaging swelling, no mass as per surgeon's report. Mild yeast rash groin folds, sacral crease.
Appetite: good.
Pressure redistribution devices in place: [employer] Accumax. Patient can turn self in bed.
Plan: R breast packing/dressing changed. Instructed patient hand hygiene with wound care. Instructed pressure injury prevention measures. t/c OR desk and asked for another XXXL surgical bra d/t drainage soilage who will tube up one.
Will confirm orders with breast surgeon and discussed with MISTY Ohara.
Care plan to be updated and will follow as needed.
Note to case management requested for discharge: VN if qualifies.
Recommend follow up with Dr. Nelson and at wound care center upon discharge.
[2023-08-19 16:27] LABS: Glucose - Point of Care 296 mg/dl (70-99)
--- NOTE | 2023-08-19 17:07 | W.PN.UPDATE ---
Update Note
Progress Note Update
Pt is POD #1 S/P incision and drainage and debridement infected necrotic right breast. Pt is sitting in bed stating she feels so much better. Afeb Wound care discussed with Wound Nurse and we agreed on local treatment plan. Await additional cultures
and pathology. I saw no indication of any tumor. One this wound is cleaned up and has less drainage, wound vac should be placed and she should follow up in Wound Care Center. She is undergoing diabetes teaching as well.
[2023-08-19] MEDS: DESENEX/MITRAZOL/ZEASORB 1 APPLIC TOPICAL (20:19)
[2023-08-19 21:37] LABS: Glucose - Point of Care 283 mg/dl (70-99)
[2023-08-19] MEDS: LANTUS 0.200000000000000011 UNITS SC (21:47)
[2023-08-19 23:38] VITALS: BP 136/77
[2023-08-20] MEDS: MOTRIN 400 MG PO ×2 (00:41→21:55)
[2023-08-20] MEDS: DILAUDID 0.5 MG IV ×5 (02:04→19:58)
[2023-08-20] MEDS: UNASYN IV ×3 (06:09→17:06)
[2023-08-20 06:37] LABS: Hematocrit 33.3 % (37.0-47.0); Mean Platelet Volume 10.4 fL (7.4-10.4); Nucleated Red Blood Cells % 0 %
[2023-08-20 06:41] LABS: % Basophils 0.8 % (0-2); % Eosinophils 0.5 % (0-6); % Immature Granulocytes 2.9 % (0-0.5); % Lymphocytes 12.3 % (20.5-51.1); % Monocytes 4.8 % (1.7-9.3); % Neutrophils 78.7 % (42.2-75.2); Absolute Basophils 0.1 10^3/uL (0-0.2); Absolute Eosinophils 0.1 10^3/uL (0-0.7); Absolute Immature Granulocytes 0.5 10^3/uL (0-0.05); Absolute Lymphocytes 2.1 10^3/uL (1.2-3.4); Absolute Monocytes 0.8 10^3/uL (0.1-0.6); Absolute Neutrophils 13.4 10^3/uL (1.4-6.5); Mean Corpuscular Hgb 27.6 pg (27.0-31.0); Mean Corpuscular Volume 83.7 fL (81.0-99.0); Platelet Count 328 10^3/uL (130-400); Red Blood Cell Count 3.98 10^6/uL (4.20-5.40); Red Cell Dist. Width 12.4 % (11.5-14.5)
[2023-08-20 06:56] LABS: Blood Urea Nitrogen 16 mg/dl (7-17); Calcium 8.2 mg/dl (8.4-10.2); Carbon Dioxide 30 mmol/L (22-30); Chloride 93 mmol/L (98-107); Estimated Creatinine Clearance 117 ml/min; Glucose 266 mg/dl (70-99); Potassium 3.3 mmol/L (3.5-5.1); Sodium 131 mmol/L (135-145); eGFR > 60.00
[2023-08-20 07:00] VITALS: BP 131/80
[2023-08-20 07:14] LABS: Glucose - Point of Care 248 mg/dl (70-99)
[2023-08-20] MEDS: NOVOLOG FLEXPEN 10 UNITS SC ×3 (08:08→17:04)
[2023-08-20] MEDS: NOVOLOG FLEXPEN-LOW RESISTANCE 2 UNITS SC ×3 (08:08→17:05)
[2023-08-20] MEDS: GLUCOPHAGE 500 MG PO ×2 (08:09→17:05)
[2023-08-20] MEDS: COLACE 100 MG PO ×2 (08:09→20:02)
[2023-08-20] MEDS: MIRALAX 17 GRAMS PO (08:09)
[2023-08-20] MEDS: DAKIN'S SOLUTION 0.125% 1/4 STRENGTH 1 ML TOPICAL (08:11)
[2023-08-20] MEDS: DESENEX/MITRAZOL/ZEASORB 1 APPLIC TOPICAL ×2 (08:13→20:02)
[2023-08-20] MEDS: KCL 40 MEQ PO (08:20)
--- NOTE | 2023-08-20 08:46 | PN.DE.MGMTRT ---
Insulin Management
- -
: Diabetes Management Consult:
53 year old female who presented with severe cellulitis and necrosis of the right breast concerning for Malignancy.
PMH: IBS and Anxiety. New dx of T2DM, A1C 12.9%. Glucose on admission 316, FBG 315 this AM.
Pt is currently in the OR for debridement and not available for interview.
Currently on low corrective insulin only.
Will start Lantus 12 units, 1st dose @HS, AC NovoLog 4 units and low corrective with meals.
Hold AC NovoLog if pt remains NPO after procedure and utilize corrective insulin.
Change diet to 1800 kris, Accucheks AC/HS and 3am blood sugar.
start Metformin 500mg BID, 1st dose tomorrow AM.
Will provide meter and Insulin instructions when pt is ready for diabetes Education.
Will follow closely and make necessary insulin dose adjustments as A1C 12.9%
08/19/2023 Diabetes Management Follow up
POD 1 s/p debridement R breast. Patient consumed dinner, glucose trended up to 306. Will increase AC novolog to 6 units. Metformin 500 mg BID to start this AM. Received 12 units lantus @ HS. Fasting glucose 318. Will increase hs lantus to 20
units. Will follow.
08/19/2023 Diabetes Education
Patient awake and alert. States she has not been to a doctor in 4 or more years. Provided Contour Next glucose monitor and instructed on procedure to test glucose. Patient states she is very familiar because most of her family has diabetes. I
discussed her A1C of 12.9%, which she knew was high, and goal to get down to less than 7%. Instructed on use of prefilled insulin pen. Will ask nursing to have patient prepare and take her insulin with pen to reinforce steps. Printed step by step
instructions given to patient as well.
08/20/2023 Diabetes Management Follow up
Patient improving. Glucose remains elevated > 200. Will again increase lantus to 25 units and AC novolog to 10 units. She has given herself insulin pre lunch and dinner and did well. Will reinforce steps for self injection and s & S hypoglycemia
and treatment.
Diabetes History
- -
Type of Diabetes: 2 requiring insulin
Pre-Admission Diabetes Regimen
08/20/23
04:59
Creatinine 0.3 L
Lab Results
Hemoglobin A1c 12.9 % (4.0-5.6) H 08/18/23 05:03
Insulin Pump Settings
IP Diabetes Regimen
08/19/23 08/19/23 08/19/23
11:40 16:26 21:36
Glucose
POC Glucose 274 H 296 H 283 H
08/20/23 08/20/23
04:59 07:14
Glucose 266 H
POC Glucose 248 H
Meal type: Lunch
Meal type: Breakfast
Amount consumed: 15%
Amount consumed: 10%
Patient Education
[2023-08-20] MEDS: TYLENOL 650 MG PO (10:51)
--- NOTE | 2023-08-20 11:11 | W.PN.HOSP.TC ---
Today's Communication/Plan
-
Monitor vital signs and see plan
Continue with antibiotics
Pain control
Continue with insulin
Monitor cultures
Assessment / Plan
Assessment / Plan
Sepsis (fever, tachycardia) secondary to severe right breast cellulitis with necrosis
-bcx 08/17 with gram-positive cocci in clusters appears contaminant,bcx from 08/18 NGTD. Wound culture with Proteus
US neg for discrete abscess; does have significant edema. Difficult to differentiate between neoplastic and infectious etiologies.
s/p debridment by Dr Nelson. f/u cx
-ID following; abx changed to unasyn
-Breast surgeon following
-Pain control; added standing tylenol
wound management
Follow fever curve
# Hyperglycemia
A1c >12; now with diabetes, new onset
diabetes INTEGRITY CONSULTANT following
started on insulin,metformin
hypokalemia
replete
Hyponatremia
Monitor
Metabolic acidosis on admission
Now improved, stop bicarb
Obesity likely 2/2 excess calories
Anxiety
IBS
Full code
DVT prophylaxis-lovenox
General: Well Developed, Well Nourished and No Apparent Distress
HEENT: NormoCephalic, Moist mucous membranes and Atraumatic
Respiratory: Clear
Cardiac: S1/S2 and Regular Rhythm; No Murmur or Rub
GI: Soft, Non Tender, Non Distended and Normal Bowel Sounds; No Organomegaly
Rectal: Deferred by Provider
Musculoskeletal: No Clubbing, No Cyanosis and No Edema
Skin: Other (right breast erythema)
Neuro: Nonfocal/grossly intact
Anticipated Discharge: 24 - 48 hours
Subjective/Interval History
-
Date of Service: August 20, 2023
Does have pain
Objective Data
-
Labs:
Laboratory Results
08/20/23
04:59
WBC 17.0 H
Hgb 11.0 L
Hct 33.3 L
Plt Count 328
Sodium 131 L
Potassium 3.3 L
Chloride 93 L
Carbon Dioxide 30
BUN 16
Creatinine 0.3 L
Glucose 266 H
Calcium 8.2 L
Vital Signs:
Vital Signs
Temp Pulse Resp BP Pulse Ox
98.3 F 96 16 131/80 94
08/20/23 07:00 08/20/23 07:00 08/20/23 07:00 08/20/23 07:00 08/20/23 07:00
I&O
08/19/23 08/20/23 08/21/23
06:59 06:59 06:59
Intake Total 2160 / 2160 720 / 720
Balance 2160 / 2160 720 / 720
--- NOTE | 2023-08-20 11:49 | W.PN.ID1 ---
Date of Service
Date of Service: August 20, 2023
Today's Communication
continue unasyn
Assessment / Plan
Breast Cellulitis/abscess
Suspected breast cancer
DM2 - new diagnosis
Class II obesity
- s/p�Incision and drainage right breast abscess and debridement necrotic breast tissue - about 50% of the breast
- wound cultures proteus, gram stain polymicrobial
- blood cultures x2 in progress -single culture with CONS - likely contaminant
- continue unasyn
- pathology pending
- follow clinically
Chief Complaint
-: Other (breast cellulitis)
Subjective / Review of Systems
febrile overnight
bp stable
tolerating current therapies
no new complaints
OR note reviewed - no fascial involvement
wbc 17, cr stable, cultures no new pathogens IDd thus far
Vital Signs / Physical Exam
Vital Signs
Vital Signs
Temp Pulse Resp BP Pulse Ox
98.3 F 96 16 131/80 94
08/20/23 07:00 08/20/23 07:00 08/20/23 07:00 08/20/23 07:00 08/20/23 07:00
Physical Exam
Constitutional: No Acute Distress
Cardiovascular: Regular Rate and S1/S2; Negative Murmur or Rub
Pulmonary: Clear and Symmetric; Negative Wheezes or Rales
Gastrointestinal: Soft, Non Tender, Non Distended and Normal Bowel Sounds
Skin: Warm and Dry; Negative Rash or Jaundice
Objective Data
Lab Data
Lab Results
08/20/23 04:59
08/20/23 04:59
Estimated Creat Clear 117 ml/min 08/20/23 04:59
Lactic Acid 1.5 mmol/L (0.7-2.0) 08/17/23 18:29
Total Bilirubin 0.7 mg/dl (0.2-1.3) 08/18/23 05:03
AST 19 U/L (14-36) 08/18/23 05:03
ALT 23 U/L (0-35) 08/18/23 05:03
Alkaline Phosphatase 146 U/L (38-126) H 08/18/23 05:03
Most recent labs reviewed.
Micro Results:
08/18/23 15:30 Wound Culture - Preliminary
Abscess Proteus mirabilis
Gram Stain - Preliminary
08/17/23 18:29 Blood Culture - Preliminary
Blood/Venous Coagulase neg. staphylococcus
Additional testing on request
Gram Stain - Final
08/18/23 18:15 Blood Culture - Preliminary
Blood/Venous No Growth in 24 hours- Final report to follow
08/19/23 15:00 Blood Culture - Pending
Blood/Venous
08/17/23 19:30 Wound Culture - Final
Breast - Right Proteus mirabilis
Gram Stain - Final
08/18/23 15:30 Anaerobic Culture - Preliminary
Abscess Culture pending. Anaerobic cultures are examined after 3
days incubation. Additional information to follow.
[2023-08-20 12:03] LABS: Glucose - Point of Care 247 mg/dl (70-99)
[2023-08-20] MEDS: TYLENOL PO (13:12)
[2023-08-20] MEDS: TYLENOL 1000 MG PO ×2 (14:12→20:01)
[2023-08-20 15:02] VITALS: BP 133/77
--- NOTE | 2023-08-20 16:22 | CM ---
Breast cellulitis, Now with new DM diagnosis. Discharge plan of care to be determined based on ongoing medical needs. Will continue to follow.
[2023-08-20 16:39] LABS: Glucose - Point of Care 228 mg/dl (70-99)
[2023-08-20] MEDS: LOVENOX 40 MG SC (17:05)
[2023-08-20 21:40] LABS: Glucose - Point of Care 191 mg/dl (70-99)
[2023-08-20] MEDS: LANTUS 0.25 UNITS SC (21:47)
[2023-08-20 23:47] VITALS: BP 133/75
[2023-08-21] MEDS: UNASYN IV ×4 (00:01→17:14)
[2023-08-21] MEDS: TYLENOL 1000 MG PO ×3 (04:16→20:26)
[2023-08-21] MEDS: DILAUDID 0.5 MG IV ×6 (04:16→21:57)
[2023-08-21 04:34] LABS: Glucose - Point of Care 176 mg/dl (70-99)
[2023-08-21 05:44] LABS: % Basophils 0.7 % (0-2); % Eosinophils 0.6 % (0-6); % Immature Granulocytes 2.9 % (0-0.5); % Lymphocytes 11.2 % (20.5-51.1); % Monocytes 4.6 % (1.7-9.3); Absolute Basophils 0.1 10^3/uL (0-0.2); Absolute Eosinophils 0.1 10^3/uL (0-0.7); Absolute Immature Granulocytes 0.5 10^3/uL (0-0.05); Absolute Monocytes 0.8 10^3/uL (0.1-0.6); Hematocrit 34.1 % (37.0-47.0); Hemoglobin 11.2 g/dL (12.0-16.0); Mean Corp Hgb Conc. 32.8 g/dL (33.0-37.0); Mean Corpuscular Hgb 27.3 pg (27.0-31.0); Mean Corpuscular Volume 83.2 fL (81.0-99.0); Nucleated Red Blood Cells % 0 %; Platelet Count 376 10^3/uL (130-400); Red Cell Dist. Width 12.5 % (11.5-14.5); White Blood Cell Count 17.5 10^3/uL (4.8-10.8)
[2023-08-21] MEDS: MOTRIN 400 MG PO (06:18)
[2023-08-21 06:21] LABS: Blood Urea Nitrogen 11 mg/dl (7-17); Calcium 8.2 mg/dl (8.4-10.2); Carbon Dioxide 32 mmol/L (22-30); Chloride 93 mmol/L (98-107); Estimated Creatinine Clearance 117 ml/min; Glucose 196 mg/dl (70-99); Potassium 3.3 mmol/L (3.5-5.1); Sodium 133 mmol/L (135-145); eGFR > 60.00
[2023-08-21 07:00] VITALS: BP 146/81
[2023-08-21 07:25] LABS: Glucose - Point of Care 178 mg/dl (70-99)
--- NOTE | 2023-08-21 08:17 | PN.DE.MGMTRT ---
Insulin Management
- -
: Diabetes Management Consult:
53 year old female who presented with severe cellulitis and necrosis of the right breast concerning for Malignancy.
PMH: IBS and Anxiety. New dx of T2DM, A1C 12.9%. Glucose on admission 316, FBG 315 this AM.
Pt is currently in the OR for debridement and not available for interview.
Currently on low corrective insulin only.
Will start Lantus 12 units, 1st dose @HS, AC NovoLog 4 units and low corrective with meals.
Hold AC NovoLog if pt remains NPO after procedure and utilize corrective insulin.
Change diet to 1800 kris, Accucheks AC/HS and 3am blood sugar.
start Metformin 500mg BID, 1st dose tomorrow AM.
Will provide meter and Insulin instructions when pt is ready for diabetes Education.
Will follow closely and make necessary insulin dose adjustments as A1C 12.9%
08/19/2023: Diabetes Management Follow up
POD 1 s/p debridement R breast. Patient consumed dinner, glucose trended up to 306. Will increase AC NovoLog to 6 units. Metformin 500 mg BID to start this AM. Received 12 units Lantus @ HS. Fasting glucose 318. Will increase hs Lantus to 20
units. Will follow.
08/19/2023: Diabetes Education
Patient awake and alert. States she has not been to a doctor in 4 or more years. Provided Contour Next glucose monitor and instructed on procedure to test glucose. Patient states she is very familiar because most of her family has diabetes. I
discussed her A1C of 12.9%, which she knew was high, and goal to get down to less than 7%. Instructed on use of prefilled insulin pen. Will ask nursing to have patient prepare and take her insulin with pen to reinforce steps. Printed step by step
instructions given to patient as well.
08/20/2023: Diabetes Management F/U:
Patient improving. Glucose remains elevated > 200. Will again increase Lantus to 25 units and AC NovoLog to 10 units. She has given herself insulin pre lunch and dinner and did well. Will reinforce steps for self injection and s & S hypoglycemia
and treatment.
08/21/2023: Diabetes Management F/U:
Glucose remains elevated, FBG 196 this AM, Premeal range also >200 (228-248), requiring 1-2 units of corrective insulin
Will increase Lantus to 27 units and AC NovoLog to 12 units.
Will follow closely and make necessary insulin dose adjustments as A1C 12.9%
Diabetes History
- -
Type of Diabetes: 2 requiring insulin
Pre-Admission Diabetes Regimen
08/21/23
05:08
Creatinine 0.3 L
Lab Results
Hemoglobin A1c 12.9 % (4.0-5.6) H 08/18/23 05:03
Insulin Pump Settings
IP Diabetes Regimen
08/20/23 08/20/23 08/20/23
12:01 16:37 21:39
Glucose
POC Glucose 247 H 228 H 191 H
08/21/23 08/21/23 08/21/23
04:23 05:08 07:24
Glucose 196 H
POC Glucose 176 H 178 H
Meal type: Lunch
Meal type: Breakfast
Amount consumed: 70%
Amount consumed: 100%
Patient Education
[2023-08-21] MEDS: KCL 20 MEQ PO (08:45)
[2023-08-21] MEDS: MIRALAX 17 GRAMS PO (08:46)
[2023-08-21] MEDS: GLUCOPHAGE 500 MG PO ×2 (08:46→16:42)
[2023-08-21] MEDS: COLACE 100 MG PO ×2 (08:46→20:27)
[2023-08-21] MEDS: NOVOLOG FLEXPEN-LOW RESISTANCE 1 UNITS SC ×3 (08:47→17:15)
[2023-08-21] MEDS: NOVOLOG FLEXPEN 10 UNITS SC (08:47)
[2023-08-21] MEDS: DESENEX/MITRAZOL/ZEASORB 1 APPLIC TOPICAL ×2 (08:48→20:27)
[2023-08-21] MEDS: DAKIN'S SOLUTION 0.125% 1/4 STRENGTH 473 ML TOPICAL (08:48)
[2023-08-21] MEDS: TYLENOL 650 MG PO (10:56)
--- NOTE | 2023-08-21 11:32 | WOUNDNOTE ---
[facility] RN NOTE: Visited patient to follow up on right breast wound. Patient resting comfortably off of right breast. Wound dressing intact. and patient report decrease in odor. This RN did not detect odor. Plan is for dressing change by RN
Matilida after 1 pm Dilaudid. Will continue to follow as needed.
[2023-08-21 11:47] LABS: Glucose - Point of Care 175 mg/dl (70-99)
--- NOTE | 2023-08-21 12:00 | W.PN.HOSP.TC ---
Today's Communication/Plan
-
Monitor vital signs see plan
And OxyContin for pain control
Wound care management
Continue with antibiotics
Replete potassium
MOM today
Assessment / Plan
Assessment / Plan
Sepsis (fever, tachycardia) secondary to severe right breast cellulitis with necrosis
-bcx 08/17 with gram-positive cocci in clusters appears contaminant,bcx from 08/18 NGTD. Wound culture with Proteus
US neg for discrete abscess; does have significant edema. Difficult to differentiate between neoplastic and infectious etiologies.
s/p debridment by Dr Nelson. f/u cx
-ID following; abx changed to unasyn
-Breast surgeon following
-Pain control; added standing tylenol,added oxycontin. dilaudid prn
wound management
Follow fever curve
# Hyperglycemia
A1c >12; now with diabetes, new onset
diabetes OPERATIONS RESEARCH DIRECTOR following
started on insulin,metformin
hypokalemia
replete
Hyponatremia
Monitor
Constipation
Laxatives
Add milk of magnesia
Metabolic acidosis on admission
Now improved, stop bicarb
Obesity likely 2/2 excess calories
Anxiety
IBS
Full code
DVT prophylaxis-lovenox
General: Well Developed, Well Nourished and No Apparent Distress
HEENT: NormoCephalic, Moist mucous membranes and Atraumatic
Respiratory: Clear
Cardiac: S1/S2 and Regular Rhythm; No Murmur or Rub
GI: Soft, Non Tender, Non Distended and Normal Bowel Sounds; No Organomegaly
Rectal: Deferred by Provider
Musculoskeletal: No Clubbing, No Cyanosis and No Edema
Skin: Other (right breast erythema)
Neuro: Nonfocal/grossly intact
I spent a total of 52 minutes with the patient or on the floor. More than 50% of this time involved counseling and coordination of care.
Anticipated Discharge: > 48 hours
Subjective/Interval History
-
Date of Service: August 21, 2023
still has pain
Objective Data
-
Labs:
Laboratory Results
08/21/23
05:08
WBC 17.5 H
Hgb 11.2 L
Hct 34.1 L
Plt Count 376
Sodium 133 L
Potassium 3.3 L
Chloride 93 L
Carbon Dioxide 32 H
BUN 11
Creatinine 0.3 L
Glucose 196 H
Calcium 8.2 L
Vital Signs:
Vital Signs
Temp Pulse Resp BP Pulse Ox
98.2 F 88 16 146/81 93
08/21/23 07:00 08/21/23 07:00 08/21/23 07:00 08/21/23 07:00 08/21/23 07:00
I&O
08/20/23 08/21/23 08/22/23
06:59 06:59 06:59
Intake Total 720 / 720 1580 / 1580
Balance 720 / 720 1580 / 1580
[2023-08-21] MEDS: MILK OF MAGNESIA 30 ML PO (12:13)
[2023-08-21] MEDS: NOVOLOG FLEXPEN 12 UNITS SC ×2 (12:34→17:15)
[2023-08-21] MEDS: FLUSH (NSS) 2 FLUSH IV (13:26)
[2023-08-21] MEDS: TYLENOL PO (14:02)
[2023-08-21] MEDS: OXYCONTIN (CONTROLLED RELEASE) 10 MG PO ×2 (14:02→20:27)
--- NOTE | 2023-08-21 14:14 | PTCARENOTE ---
wound care completed this shift as ordered, odor noted while changing dressing, drainage as well, pt able to tolerate dressing change with the help of Dilaudid iV, had MOM today and it was effective with large BM. Pt resting in bed after wound care,
call mustafa within reach.
--- NOTE | 2023-08-21 14:37 | PN.CDI ---
CDI
- -
CDI:
Physician Documentation Request
Admit Date: 08/17/23 20:33
Dear Doctor Omar,
08/18 Pt to OR for ' Incision and drainage and debridement, right breast'
Could you provide, in the progress notes further clarification regarding the debridement.
Please specify the type of debridement performed:
1. Excisional Debridement - defined as removal by excision of devitalized tissue, necrosis or slough
2. Non-excisional debridement - defined as removal of devitalized tissue, necrosis or slough by such methods as irrigation, brushing, scrubbing or washing.
Use of terms such as suspected, likely, concern for, or probable (associated with a specific diagnosis that is being evaluated, monitored, or treated as if it exists) are acceptable and can be coded in the inpatient setting, when documented at the
time of discharge.
Thank you,
Cande Garnett RN, BSN
CDI Specialist
tiger text
Please use your independent medical judgment in providing your response.
--- NOTE | 2023-08-21 14:59 | W.PN.ID1 ---
Date of Service
Date of Service: August 21, 2023
Today's Communication
- continue unasyn
- pathology pending
Assessment / Plan
Breast Cellulitis/abscess
Suspected breast cancer
DM2 - new diagnosis
Class II obesity
- s/p�Incision and drainage right breast abscess
- wound cultures proteus, gram stain polymicrobial
- blood cultures x2 in progress -single culture with CONS - likely contaminant
- continue unasyn
- pathology pending
- message left for medical staff services coordinator to please notify me at time of dressing change tomorrow for coordination
- follow clinically
Chief Complaint
-: Other (breast cellulitis)
Subjective / Review of Systems
no further fevers x24 hours
bp stable
leukocytosis essentially stable
blood cultures remain no growth
Vital Signs / Physical Exam
Vital Signs
Vital Signs
Temp Pulse Resp BP Pulse Ox
98.2 F 88 16 146/81 93
08/21/23 07:00 08/21/23 07:00 08/21/23 07:00 08/21/23 07:00 08/21/23 07:00
Physical Exam
Constitutional: No Acute Distress
Cardiovascular: Regular Rate and S1/S2; Negative Murmur or Rub
Pulmonary: Clear and Symmetric; Negative Wheezes or Rales
Gastrointestinal: Soft, Non Tender, Non Distended and Normal Bowel Sounds
Skin: Warm and Dry; Negative Rash or Jaundice
Wound: Other (dressing change deferred due to pain)
Objective Data
Lab Data
Lab Results
08/21/23 05:08
08/21/23 05:08
Estimated Creat Clear 117 ml/min 08/21/23 05:08
Lactic Acid 1.5 mmol/L (0.7-2.0) 08/17/23 18:29
Total Bilirubin 0.7 mg/dl (0.2-1.3) 08/18/23 05:03
AST 19 U/L (14-36) 08/18/23 05:03
ALT 23 U/L (0-35) 08/18/23 05:03
Alkaline Phosphatase 146 U/L (38-126) H 08/18/23 05:03
Most recent labs reviewed.
Micro Results:
08/18/23 15:30 Wound Culture - Preliminary
Abscess Proteus mirabilis
Gram Stain - Preliminary
08/18/23 15:30 Anaerobic Culture - Preliminary
Abscess Culture pending. Anaerobic cultures are examined after 3
days incubation. Additional information to follow.
08/18/23 18:15 Blood Culture - Preliminary
Blood/Venous No Growth in 48 hours- Final report to follow
08/19/23 15:00 Blood Culture - Preliminary
Blood/Venous No Growth in 24 hours- Final report to follow
08/17/23 18:29 Blood Culture - Preliminary
Blood/Venous Coagulase neg. staphylococcus
Additional testing on request
Gram Stain - Final
08/17/23 19:30 Wound Culture - Final
Breast - Right Proteus mirabilis
Gram Stain - Final
[2023-08-21 15:00] VITALS: BP 160/90
--- NOTE | 2023-08-21 15:12 | CM ---
Discharge POC remains TBD based on ongoing medical issues. Anticipate HH.
[2023-08-21 16:44] VITALS: BP 171/98
[2023-08-21 16:44] LABS: Glucose - Point of Care 184 mg/dl (70-99)
[2023-08-21] MEDS: LOVENOX 40 MG SC (17:14)
[2023-08-21 21:26] LABS: Glucose - Point of Care 116 mg/dl (70-99)
[2023-08-21] MEDS: LANTUS 0.270000000000000018 UNITS SC (21:57)
[2023-08-21 23:05] VITALS: BP 141/70
[2023-08-22] MEDS: UNASYN IV ×5 (00:39→23:36)
[2023-08-22] MEDS: MOTRIN 400 MG PO ×2 (00:45→09:43)
[2023-08-22] MEDS: DILAUDID 0.5 MG IV ×6 (02:00→23:36)
[2023-08-22] MEDS: TYLENOL 1000 MG PO ×3 (03:36→20:38)
[2023-08-22 04:48] LABS: % Basophils 0.2 % (0-2); % Eosinophils 0.8 % (0-6); % Immature Granulocytes 4.3 % (0-0.5); % Monocytes 5.1 % (1.7-9.3); % Neutrophils 73.6 % (42.2-75.2); Absolute Eosinophils 0.1 10^3/uL (0-0.7); Absolute Immature Granulocytes 0.7 10^3/uL (0-0.05); Absolute Lymphocytes 2.7 10^3/uL (1.2-3.4); Absolute Monocytes 0.9 10^3/uL (0.1-0.6); Absolute Neutrophils 12.5 10^3/uL (1.4-6.5); Hematocrit 34.3 % (37.0-47.0); Mean Corp Hgb Conc. 33.5 g/dL (33.0-37.0); Mean Corpuscular Hgb 27.3 pg (27.0-31.0); Mean Corpuscular Volume 81.3 fL (81.0-99.0); Mean Platelet Volume 9.7 fL (7.4-10.4); Nucleated Red Blood Cells % 0 %; Platelet Count 392 10^3/uL (130-400); Red Blood Cell Count 4.22 10^6/uL (4.20-5.40); Red Cell Dist. Width 12.9 % (11.5-14.5)
[2023-08-22 04:57] LABS: Hemoglobin 11.5 g/dL (12.0-16.0)
[2023-08-22 05:45] LABS: Blood Urea Nitrogen 9 mg/dl (7-17); Calcium 8.6 mg/dl (8.4-10.2); Carbon Dioxide 30 mmol/L (22-30); Chloride 95 mmol/L (98-107); Estimated Creatinine Clearance 117 ml/min; Glucose 133 mg/dl (70-99); Sodium 131 mmol/L (135-145); eGFR > 60.00
[2023-08-22 05:51] LABS: Potassium 4.1 mmol/L (3.5-5.1)
[2023-08-22 07:10] VITALS: BP 144/78
[2023-08-22 07:32] LABS: Glucose - Point of Care 155 mg/dl (70-99)
[2023-08-22] MEDS: NOVOLOG FLEXPEN 12 UNITS SC ×3 (07:45→17:56)
[2023-08-22] MEDS: NOVOLOG FLEXPEN-LOW RESISTANCE 1 UNITS SC (07:46)
[2023-08-22] MEDS: MIRALAX 17 GRAMS PO (08:04)
[2023-08-22] MEDS: OXYCONTIN (CONTROLLED RELEASE) 10 MG PO ×2 (08:04→20:38)
[2023-08-22] MEDS: DAKIN'S SOLUTION 0.125% 1/4 STRENGTH 473 ML TOPICAL (08:04)
[2023-08-22] MEDS: COLACE 100 MG PO ×2 (08:04→20:38)
[2023-08-22] MEDS: GLUCOPHAGE 500 MG PO ×2 (08:04→17:14)
[2023-08-22] MEDS: DESENEX/MITRAZOL/ZEASORB 1 APPLIC TOPICAL ×2 (08:05→20:38)
[2023-08-22 11:19] LABS: Glucose - Point of Care 135 mg/dl (70-99)
--- NOTE | 2023-08-22 12:03 | W.PN.HOSP.TC ---
Today's Communication/Plan
-
Monitor vitals
See plan
Monitor leukocytosis
Need aggressive pain control, added oxycodone
Continue with OxyContin, Tylenol. Dilaudid as needed
Continue with laxatives
Continue with antibiotics
Patient will need to follow-up with wound care management and Dr. Nelson outpatient
Assessment / Plan
Assessment / Plan
Sepsis (fever, tachycardia) secondary to severe right breast cellulitis with necrosis
-bcx 08/17 with gram-positive cocci in clusters appears contaminant,bcx from 08/18 NGTD. Wound culture with Proteus
US neg for discrete abscess; does have significant edema. Difficult to differentiate between neoplastic and infectious etiologies.
s/p debridment by Dr Nelson. f/u cx
-ID following; abx changed to unasyn
-Breast surgeon following; spoke with Dr Nelson and patient needs to follow up with her and wound care outpatient. they will asess the need for wound VAC outpatient.
-Pain control; added standing tylenol,added oxycontin. dilaudid prn For severe pain. Oxycodone as needed. Patient will need to follow-up with pain management outpatient
wound management
Follow fever curve
# Hyperglycemia
A1c >12; now with diabetes, new onset
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
cw insulin,metformin
hypokalemia
resolved
Hyponatremia
Monitor
Constipation
Laxatives
now with BM; improving
Metabolic acidosis on admission
Now improved, stop bicarb
Obesity likely 2/2 excess calories
Anxiety
IBS
Full code
DVT prophylaxis-lovenox
General: Well Developed, Well Nourished and No Apparent Distress
HEENT: NormoCephalic, Moist mucous membranes and Atraumatic
Respiratory: Clear
Cardiac: S1/S2 and Regular Rhythm; No Murmur or Rub
GI: Soft, Non Tender, Non Distended and Normal Bowel Sounds; No Organomegaly
Rectal: Deferred by Provider
Musculoskeletal: No Clubbing, No Cyanosis and No Edema
Skin: Other (right breast erythema)
Neuro: Nonfocal/grossly intact
Anticipated Discharge: 24 - 48 hours
Subjective/Interval History
-
Date of Service: August 22, 2023
has pain
Objective Data
-
Labs:
Laboratory Results
08/22/23
04:36
WBC 17.0 H
Hgb 11.5 L
Hct 34.3 L
Plt Count 392
Sodium 131 L
Potassium 4.1
Chloride 95 L
Carbon Dioxide 30
BUN 9
Creatinine 0.2 L
Glucose 133 H
Calcium 8.6
Vital Signs:
Vital Signs
Temp Pulse Resp BP Pulse Ox
98.1 F 84 12 144/78 95
08/22/23 07:10 08/22/23 07:10 08/22/23 07:10 08/22/23 07:10 08/22/23 07:10
I&O
08/21/23 08/22/23 08/23/23
06:59 06:59 06:59
Intake Total 1580 / 1580 2039
Balance 1580 / 1580 2039
[2023-08-22] MEDS: NOVOLOG FLEXPEN-LOW RESISTANCE SC ×2 (12:42→17:33)
[2023-08-22 14:56] VITALS: BP 133/76
--- NOTE | 2023-08-22 15:12 | W.PN.ID1 ---
Addendum entered and electronically signed by Pamella Mccarthy MD 08/22/23 15:30:
from ID perspective glucose target <200 is adequate
Original Note:
Date of Service
Date of Service: August 22, 2023
Today's Communication
- continue unasyn
Assessment / Plan
Breast Cellulitis/abscess
Suspected breast cancer
DM2 - new diagnosis
Class II obesity
- s/p�Incision and drainage right breast abscess
- feel she may require further washout at some point - reached out to breast surgery to request reevaluation over the next few days
- wound cultures proteus
- blood cultures x2 in progress -single culture with CONS - likely contaminant
- continue unasyn
- pathology pending
- follow clinically
Chief Complaint
-: Other (breast cellulitis)
Subjective / Review of Systems
afebrile
bp stable
stable leukocytosis
cr stable
wound bed with some necrotic tissue, packing with moderate purulent fluid
Vital Signs / Physical Exam
Vital Signs
Vital Signs
Temp Pulse Resp BP Pulse Ox
97.8 F 92 18 133/76 96
08/22/23 14:56 08/22/23 14:56 08/22/23 14:56 08/22/23 14:56 08/22/23 14:56
Physical Exam
Constitutional: No Acute Distress
Cardiovascular: Regular Rate and S1/S2; Negative Murmur or Rub
Pulmonary: Clear and Symmetric; Negative Wheezes or Rales
Gastrointestinal: Soft, Non Tender, Non Distended and Normal Bowel Sounds
Skin: Warm and Dry; Negative Rash or Jaundice
Wound: Other (wound bed with some necrotic tissue, packing with moderate purulent fluid)
Objective Data
Lab Data
Lab Results
08/22/23 04:36
01/20/24 04:36
Estimated Creat Clear 117 ml/min 08/22/23 04:36
Lactic Acid 1.5 mmol/L (0.7-2.0) 08/17/23 18:29
Total Bilirubin 0.7 mg/dl (0.2-1.3) 08/18/23 05:03
AST 19 U/L (14-36) 08/18/23 05:03
ALT 23 U/L (0-35) 08/18/23 05:03
Alkaline Phosphatase 146 U/L (38-126) H 08/18/23 05:03
Most recent labs reviewed.
Micro Results:
08/18/23 15:30 Wound Culture - Preliminary
Abscess Proteus mirabilis
Gram Stain - Preliminary
08/18/23 15:30 Anaerobic Culture - Preliminary
Abscess Culture pending. Anaerobic cultures are examined after 3
days incubation. Additional information to follow.
08/17/23 18:29 Blood Culture - Final
Blood/Venous Coagulase neg. staphylococcus
Additional testing on request
Gram Stain - Final
08/18/23 18:15 Blood Culture - Preliminary
Blood/Venous No Growth in 72 hours- Final report to follow
08/19/23 15:00 Blood Culture - Preliminary
Blood/Venous No Growth in 48 hours- Final report to follow
08/17/23 19:30 Wound Culture - Final
Breast - Right Proteus mirabilis
Gram Stain - Final
[2023-08-22 17:14] LABS: Glucose - Point of Care 101 mg/dl (70-99)
[2023-08-22] MEDS: LOVENOX 40 MG SC (17:14)
[2023-08-22 21:19] LABS: Glucose - Point of Care 177 mg/dl (70-99)
[2023-08-22] MEDS: LANTUS 0.270000000000000018 UNITS SC (21:48)
[2023-08-22 23:14] VITALS: BP 170/84
[2023-08-23] MEDS: TYLENOL 1000 MG PO ×3 (04:02→20:31)
[2023-08-23] MEDS: ROXICODONE 5 MG PO ×2 (04:02→11:16)
[2023-08-23] MEDS: MOTRIN 400 MG PO ×3 (06:06→23:10)
[2023-08-23] MEDS: UNASYN IV ×4 (06:06→23:42)
[2023-08-23] MEDS: DILAUDID 0.5 MG IV ×4 (06:07→23:36)
[2023-08-23 07:58] LABS: Glucose - Point of Care 140 mg/dl (70-99)
[2023-08-23] MEDS: NOVOLOG FLEXPEN-LOW RESISTANCE SC ×3 (07:58→17:06)
[2023-08-23] MEDS: COLACE 100 MG PO ×2 (07:58→20:31)
[2023-08-23] MEDS: GLUCOPHAGE 500 MG PO ×2 (07:58→17:05)
[2023-08-23] MEDS: MIRALAX 17 GRAMS PO (07:58)
[2023-08-23] MEDS: OXYCONTIN (CONTROLLED RELEASE) 10 MG PO ×2 (07:58→20:32)
[2023-08-23] MEDS: NOVOLOG FLEXPEN 12 UNITS SC ×3 (07:59→17:53)
[2023-08-23] MEDS: DAKIN'S SOLUTION 0.125% 1/4 STRENGTH 473 ML TOPICAL (07:59)
[2023-08-23] MEDS: DESENEX/MITRAZOL/ZEASORB 1 APPLIC TOPICAL ×2 (07:59→20:32)
[2023-08-23 08:03] LABS: % Basophils 0.8 % (0-2); % Eosinophils 0.7 % (0-6); % Immature Granulocytes 5.4 % (0-0.5); % Lymphocytes 14.7 % (20.5-51.1); % Neutrophils 72.4 % (42.2-75.2); Absolute Basophils 0.1 10^3/uL (0-0.2); Absolute Eosinophils 0.1 10^3/uL (0-0.7); Absolute Immature Granulocytes 0.9 10^3/uL (0-0.05); Absolute Lymphocytes 2.4 10^3/uL (1.2-3.4); Hematocrit 36.4 % (37.0-47.0); Hemoglobin 11.6 g/dL (12.0-16.0); Mean Corp Hgb Conc. 31.9 g/dL (33.0-37.0); Mean Corpuscular Hgb 26.7 pg (27.0-31.0); Mean Corpuscular Volume 83.9 fL (81.0-99.0); Mean Platelet Volume 9.7 fL (7.4-10.4); Nucleated Red Blood Cells % 0 %; Platelet Count 492 10^3/uL (130-400); Red Blood Cell Count 4.34 10^6/uL (4.20-5.40); Red Cell Dist. Width 12.9 % (11.5-14.5); White Blood Cell Count 16.6 10^3/uL (4.8-10.8)
[2023-08-23 08:11] VITALS: BP 153/75
[2023-08-23 09:23] LABS: Blood Urea Nitrogen 5 mg/dl (7-17); Calcium 8.7 mg/dl (8.4-10.2); Carbon Dioxide 27 mmol/L (22-30); Chloride 96 mmol/L (98-107); Estimated Creatinine Clearance 117 ml/min; Glucose 125 mg/dl (70-99); Potassium 4.1 mmol/L (3.5-5.1); Sodium 132 mmol/L (135-145); eGFR > 60.00
[2023-08-23] MEDS: DILAUDID 1 MG IV (11:40)
[2023-08-23] MEDS: FLUSH (NSS) 1 FLUSH IV (11:41)
[2023-08-23 11:57] LABS: Glucose - Point of Care 129 mg/dl (70-99)
--- NOTE | 2023-08-23 12:12 | W.PN.UPDATE ---
Update Note
Progress Note Update
Pt is S/P incision and drainage and debridement infected necrotic right breast. Most of her tissue is granulating in well which is encouraging. There is some
superficial necrosis which I debrided at bedside, packing replaced. Pt should go to OR tomorrow for more thorough inspection and debridement. Procedure,
alternatives, risks (inherent and unexpected) morbidity and mortality discussed with patient who verbalizes she understands and gives informed consent
Will make patient NPO and as for help with diabetes management.
[2023-08-23] MEDS: NSS 500 IV ×2 (12:48→23:11)
[2023-08-23] MEDS: MILK OF MAGNESIA 30 ML PO (13:50)
[2023-08-23] MEDS: TYLENOL 500 MG PO (15:29)
[2023-08-23 16:07] VITALS: BP 147/92
[2023-08-23 16:51] LABS: Glucose - Point of Care 110 mg/dl (70-99)
[2023-08-23] MEDS: LOVENOX 40 MG SC (17:04)
[2023-08-23] MEDS: LANTUS 0.149999999999999994 UNITS SC (22:15)
[2023-08-23 22:17] LABS: Glucose - Point of Care 153 mg/dl (70-99)
[2023-08-23 23:09] VITALS: BP 142/77
[2023-08-24] VITALS (9 sets, daily range): BP systolic 120–146; BP diastolic 74–82
[2023-08-24] MEDS: ROXICODONE 5 MG PO ×4 (00:44→23:38)
[2023-08-24] MEDS: DILAUDID 0.5 MG IV ×4 (03:50→21:39)
[2023-08-24] MEDS: TYLENOL 1000 MG PO ×3 (03:50→19:50)
[2023-08-24] MEDS: MOTRIN 400 MG PO (05:13)
[2023-08-24 05:27] LABS: % Basophils 0.2 % (0-2); % Eosinophils 1.5 % (0-6); % Immature Granulocytes 5.8 % (0-0.5); % Neutrophils 66.5 % (42.2-75.2); Absolute Eosinophils 0.2 10^3/uL (0-0.7); Absolute Immature Granulocytes 0.8 10^3/uL (0-0.05); Absolute Lymphocytes 2.7 10^3/uL (1.2-3.4); Absolute Neutrophils 9.4 10^3/uL (1.4-6.5); Hematocrit 38.1 % (37.0-47.0); Hemoglobin 12.4 g/dL (12.0-16.0); Mean Corp Hgb Conc. 32.5 g/dL (33.0-37.0); Mean Corpuscular Hgb 26.5 pg (27.0-31.0); Mean Corpuscular Volume 81.4 fL (81.0-99.0); Mean Platelet Volume 9.9 fL (7.4-10.4); Nucleated Red Blood Cells % 0.1 %; Platelet Count 495 10^3/uL (130-400); Red Blood Cell Count 4.68 10^6/uL (4.20-5.40); Red Cell Dist. Width 13.1 % (11.5-14.5); White Blood Cell Count 14.1 10^3/uL (4.8-10.8)
[2023-08-24] MEDS: UNASYN IV ×4 (05:43→23:39)
[2023-08-24 06:01] LABS: Blood Urea Nitrogen 11 mg/dl (7-17); Calcium 8.7 mg/dl (8.4-10.2); Carbon Dioxide 28 mmol/L (22-30); Chloride 103 mmol/L (98-107); Estimated Creatinine Clearance 117 ml/min; Glucose 116 mg/dl (70-99); Potassium 4.3 mmol/L (3.5-5.1); Sodium 134 mmol/L (135-145); eGFR > 60.00
[2023-08-24 07:29] LABS: Glucose - Point of Care 124 mg/dl (70-99)
[2023-08-24] MEDS: NOVOLOG FLEXPEN SC ×2 (07:58→12:00)
[2023-08-24] MEDS: NOVOLOG FLEXPEN-LOW RESISTANCE SC ×3 (07:58→17:04)
--- NOTE | 2023-08-24 08:08 | PN.DE.MGMTRT ---
Insulin Management
- -
: Diabetes Management Consult:
53 year old female who presented with severe cellulitis and necrosis of the right breast concerning for Malignancy.
PMH: IBS and Anxiety. New dx of T2DM, A1C 12.9%. Glucose on admission 316, FBG 315 this AM.
Pt is currently in the OR for debridement and not available for interview.
Currently on low corrective insulin only.
Will start Lantus 12 units, 1st dose @HS, AC NovoLog 4 units and low corrective with meals.
Hold AC NovoLog if pt remains NPO after procedure and utilize corrective insulin.
Change diet to 1800 kris, Accucheks AC/HS and 3am blood sugar.
start Metformin 500mg BID, 1st dose tomorrow AM.
Will provide meter and Insulin instructions when pt is ready for diabetes Education.
Will follow closely and make necessary insulin dose adjustments as A1C 12.9%
08/19/2023: Diabetes Management Follow up
POD 1 s/p debridement R breast. Patient consumed dinner, glucose trended up to 306. Will increase AC NovoLog to 6 units. Metformin 500 mg BID to start this AM. Received 12 units Lantus @ HS. Fasting glucose 318. Will increase hs Lantus to 20
units. Will follow.
08/19/2023: Diabetes Education
Patient awake and alert. States she has not been to a doctor in 4 or more years. Provided Contour Next glucose monitor and instructed on procedure to test glucose. Patient states she is very familiar because most of her family has diabetes. I
discussed her A1C of 12.9%, which she knew was high, and goal to get down to less than 7%. Instructed on use of prefilled insulin pen. Will ask nursing to have patient prepare and take her insulin with pen to reinforce steps. Printed step by step
instructions given to patient as well.
08/20/2023: Diabetes Management F/U:
Patient improving. Glucose remains elevated > 200. Will again increase Lantus to 25 units and AC NovoLog to 10 units. She has given herself insulin pre lunch and dinner and did well. Will reinforce steps for self injection and s & S hypoglycemia
and treatment.
08/21/2023: Diabetes Management F/U:
Glucose remains elevated, FBG 196 this AM, Premeal range also >200 (228-248), requiring 1-2 units of corrective insulin
Will increase Lantus to 27 units and AC NovoLog to 12 units.
Will follow closely and make necessary insulin dose adjustments as A1C 12.9%
08/24/2023: Diabetes Management F/U:
Pt NPO for OR today. Received half dose of Lantus @ HS.
Glucose stable and in range 110-153, FBG 116 this AM.
Her breakfast NovoLog dose was held. Will make no changes to current regimen: Lantus to 27 units and AC NovoLog to 12 units.
Pt reports that she has been having severe Nausea and diarrhea since start of Metformin, she does not want to continue taking it, will D/C MFM.
Spoke to pt and - Pat at length regarding lifestyle modification: Exercise, CHO counting (encouraged non-starchy veggies and salads), monitoring and taking her meds, suggested XL MFM, pt agreeable but would like to wait until she has d/w her
PCP.
Will follow closely and make necessary insulin dose adjustments as A1C 12.9%
Diabetes History
- -
Type of Diabetes: 2 requiring insulin
Pre-Admission Diabetes Regimen
08/23/23 08/24/23
06:49 04:55
Creatinine 0.3 L 0.3 L
Lab Results
Hemoglobin A1c 12.9 % (4.0-5.6) H 08/18/23 05:03
Insulin Pump Settings
IP Diabetes Regimen
08/23/23 08/23/23 08/23/23
06:49 11:55 16:50
Glucose 125 H
POC Glucose 129 H 110 H
08/23/23 08/24/23 08/24/23
22:14 04:55 07:28
Glucose 116 H
POC Glucose 153 H 124 H
Meal type: Dinner
Meal type: Breakfast
Amount consumed: 100%
Amount consumed: 100%
Patient Education
[2023-08-24] MEDS: COLACE 100 MG PO ×2 (08:21→19:50)
[2023-08-24] MEDS: OXYCONTIN (CONTROLLED RELEASE) 10 MG PO ×2 (08:21→19:50)
[2023-08-24] MEDS: MIRALAX 17 GRAMS PO (08:21)
[2023-08-24] MEDS: DAKIN'S SOLUTION 0.125% 1/4 STRENGTH 473 ML TOPICAL (08:23)
[2023-08-24] MEDS: DESENEX/MITRAZOL/ZEASORB 1 APPLIC TOPICAL ×2 (08:23→19:51)
[2023-08-24] MEDS: GLUCOPHAGE PO ×2 (08:24→17:03)
[2023-08-24] MEDS: NSS 500 IV ×2 (10:09→17:04)
--- NOTE | 2023-08-24 10:16 | W.PN.HOSP.TC ---
Today's Communication/Plan
-
for OR
Assessment / Plan
Assessment / Plan
Sepsis (fever, tachycardia) secondary to severe right breast cellulitis with necrosis
-bcx 08/17 with gram-positive cocci in clusters appears contaminant,bcx from 08/18 NGTD. Wound culture with Proteus
US neg for discrete abscess; does have significant edema. Difficult to differentiate between neoplastic and infectious etiologies.
s/p debridment by Dr Nelson. cultures with proteus. await pathology. For further debridement in the OR 08/24
-ID following; abx changed to unasyn
-Breast surgeon following; spoke with Dr Nelson and patient needs to follow up with her and wound care outpatient. they will asesss the need for wound VAC outpatient.
-Pain control; added standing tylenol,added oxycontin. dilaudid prn For severe pain. Oxycodone as needed. Patient will need to follow-up with pain management outpatient
wound management
Follow fever curve
# Hyperglycemia
A1c >12; now with diabetes, new onset
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
cw insulin,metformin
hypokalemia
resolved
Hyponatremia
Monitor
Constipation
Laxatives
now with BM; improving
Metabolic acidosis on admission
Now improved, stop bicarb
Obesity likely 2/2 excess calories
Anxiety
IBS
Full code
DVT prophylaxis-lovenox
General: Well Developed, Well Nourished and No Apparent Distress
HEENT: NormoCephalic, Moist mucous membranes and Atraumatic
Respiratory: Clear
Cardiac: S1/S2 and Regular Rhythm; No Murmur or Rub
GI: Soft, Non Tender, Non Distended and Normal Bowel Sounds; No Organomegaly
Rectal: Deferred by Provider
Musculoskeletal: No Clubbing, No Cyanosis and No Edema
Skin: Other (right breast erythema)
Neuro: Nonfocal/grossly intact
Anticipated Discharge: 24 - 48 hours
Subjective/Interval History
-
Date of Service: August 24, 2023
pain control regimen is adequate although patient is still working through pain
Objective Data
-
Labs:
Laboratory Results
08/24/23
04:55
WBC 14.1 H
Hgb 12.4
Hct 38.1
Plt Count 495 H
Sodium 134 L
Potassium 4.3
Chloride 103
Carbon Dioxide 28
BUN 11
Creatinine 0.3 L
Glucose 116 H
Calcium 8.7
Vital Signs:
Vital Signs
Temp Pulse Resp BP Pulse Ox
97.7 F 84 12 137/76 97
08/24/23 07:10 08/24/23 07:10 08/24/23 07:10 08/24/23 07:10 08/24/23 07:10
I&O
08/23/23 08/24/23 08/25/23
06:59 06:59 06:59
Intake Total 1320 / 1320 2710 / 2710
Balance 1320 / 1320 2710 / 2710
Review of Systems
-
History Source: Patient
All other systems: Reviewed and negative
Physical Exam
-
General: Well Developed and No Apparent Distress
HEENT: Normocephalic, Atraumatic and Moist Mucous Membranes
Respiratory: Clear to Auscultation
Cardiac: Regular Rhythm and S1/S2; Negative Murmur, Rub or Gallop
GI: Soft, Nontender, Nondistended and Normal Bowel Sounds; Negative Organomegaly
Rectal: Deferred by Provider
Musculoskeletal: No Clubbing, No Cyanosis and No Edema
Skin: Negative Rash
Neuro: Nonfocal/Grossly Intact
Data Reviewed
-
Labs: Labs Reviewed by me
[2023-08-24 12:01] LABS: Glucose - Point of Care 110 mg/dl (70-99)
--- NOTE | 2023-08-24 12:44 | W.PN.ID1 ---
Date of Service
Date of Service: August 24, 2023
Today's Communication
continue unasyn
agree with washout
Assessment / Plan
Breast Cellulitis/abscess
Suspected breast cancer
DM2 - new diagnosis
Class II obesity
- s/p�Incision and drainage right breast abscess
- for the OR
- wound cultures proteus
- blood cultures x2 in progress -single culture with CONS - likely contaminant
- continue unasyn
- pathology pending
- follow clinically
Chief Complaint
-: Other (breast cellulitis)
Subjective / Review of Systems
afebrile
bp stable
declining leukocytosis
cr stable
Vital Signs / Physical Exam
Vital Signs
Vital Signs
Temp Pulse Resp BP Pulse Ox
97.7 F 84 12 137/76 97
08/24/23 07:10 08/24/23 07:10 08/24/23 07:10 08/24/23 07:10 08/24/23 07:10
Physical Exam
Constitutional: No Acute Distress
Cardiovascular: Regular Rate and Rub
Pulmonary: Symmetric, Rales and Non Labored
Gastrointestinal: Non Tender and Non Distended
Skin: Dry; Negative Rash or Jaundice
Neurological: Awake
Objective Data
Lab Data
Lab Results
08/24/23 04:55
08/24/23 04:55
Estimated Creat Clear 117 ml/min 08/24/23 04:55
Lactic Acid 1.5 mmol/L (0.7-2.0) 08/17/23 18:29
Total Bilirubin 0.7 mg/dl (0.2-1.3) 08/18/23 05:03
AST 19 U/L (14-36) 08/18/23 05:03
ALT 23 U/L (0-35) 08/18/23 05:03
Alkaline Phosphatase 146 U/L (38-126) H 08/18/23 05:03
Most recent labs reviewed.
Micro Results:
08/18/23 18:15 Blood Culture - Final
Blood/Venous No Growth - Final Report
08/19/23 15:00 Blood Culture - Preliminary
Blood/Venous No Growth in 4 days- Final report to follow
08/18/23 15:30 Wound Culture - Final
Abscess Proteus mirabilis
Gram Stain - Final
08/18/23 15:30 Anaerobic Culture - Final
Abscess
08/17/23 18:29 Blood Culture - Final
Blood/Venous Coagulase neg. staphylococcus
Additional testing on request
Gram Stain - Final
08/17/23 19:30 Wound Culture - Final
Breast - Right Proteus mirabilis
Gram Stain - Final
--- NOTE | 2023-08-24 12:47 | PTCARENOTE ---
pt sent down to OR for washout with her chart and IVF going through the Left AC. pt was wiped down with prep wipes and washed herself up this morning. pt received prn pain medications this morning as well as her scheduled dose
[2023-08-24] MEDS: DILAUDID 0.25 MG IV ×2 (14:58→15:20)
[2023-08-24 15:04] LABS: Glucose - Point of Care 96 mg/dl (70-99)
--- NOTE | 2023-08-24 15:07 | CM ---
OR today for debridement of R breast necrosis. Biopsy remains pending. Discharge plan of care: TBD based on needs. Will need education for newly diagnosed DM.
--- NOTE | 2023-08-24 15:08 | W.IMMPOSTOP ---
Surgical Immed Post Op Note
-
Primary Surgeon: Omar
Assisting Surgeon: None
Pre-op Diagnosis: Abscess and necrosis right breast
Post-op Diagnosis: Same
Procedure Performed: Excisional debridement right breast with biopsy and culture
Anesthesia Type: GET
Specimen / Cultures: Breast tissue, abscess culture
Estimated Blood Loss: 20cc
Complications: None
Operative Findings: Necrotic skin
[2023-08-24 17:01] LABS: Glucose - Point of Care 106 mg/dl (70-99)
[2023-08-24] MEDS: LOVENOX 40 MG SC (17:38)
[2023-08-24] MEDS: NOVOLOG FLEXPEN 12 UNITS SC (17:38)
[2023-08-24 21:06] LABS: Glucose - Point of Care 159 mg/dl (70-99)
[2023-08-24] MEDS: LANTUS 0.270000000000000018 UNITS SC (21:40)
[2023-08-24 23:20] LABS: Glucose - Point of Care 136 mg/dl (70-99)
[2023-08-25] MEDS: TYLENOL 1000 MG PO ×3 (03:42→19:47)
[2023-08-25] MEDS: DILAUDID 0.5 MG IV ×5 (03:42→21:40)
[2023-08-25] MEDS: NSS 500 IV ×2 (04:43→15:20)
[2023-08-25] MEDS: UNASYN IV ×2 (06:05→12:25)
[2023-08-25] MEDS: ROXICODONE 5 MG PO ×2 (06:10→17:14)
[2023-08-25 06:11] LABS: % Basophils 0.6 % (0-2); % Immature Granulocytes 4.1 % (0-0.5); % Lymphocytes 14.2 % (20.5-51.1); % Neutrophils 72.1 % (42.2-75.2); Absolute Basophils 0.1 10^3/uL (0-0.2); Absolute Eosinophils 0.2 10^3/uL (0-0.7); Absolute Immature Granulocytes 0.6 10^3/uL (0-0.05); Absolute Lymphocytes 2.2 10^3/uL (1.2-3.4); Absolute Monocytes 1.3 10^3/uL (0.1-0.6); Absolute Neutrophils 11.4 10^3/uL (1.4-6.5); Hematocrit 35.7 % (37.0-47.0); Hemoglobin 11.2 g/dL (12.0-16.0); Mean Corp Hgb Conc. 31.4 g/dL (33.0-37.0); Mean Corpuscular Hgb 26.8 pg (27.0-31.0); Mean Corpuscular Volume 85.4 fL (81.0-99.0); Mean Platelet Volume 9.5 fL (7.4-10.4); Nucleated Red Blood Cells % 0 %; Platelet Count 479 10^3/uL (130-400); Red Blood Cell Count 4.18 10^6/uL (4.20-5.40); Red Cell Dist. Width 13.2 % (11.5-14.5); White Blood Cell Count 15.7 10^3/uL (4.8-10.8)
[2023-08-25 06:45] LABS: ALT (SGPT) 28 U/L (0-35); AST (SGOT) 22 U/L (14-36); Albumin 2.6 g/dl (3.5-5.0); Alkaline Phosphatase 270 U/L (38-126); Blood Urea Nitrogen 7 mg/dl (7-17); Calcium 8.1 mg/dl (8.4-10.2); Carbon Dioxide 25 mmol/L (22-30); Chloride 100 mmol/L (98-107); Estimated Creatinine Clearance 117 ml/min; Glucose 113 mg/dl (70-99); Potassium 3.9 mmol/L (3.5-5.1); Sodium 131 mmol/L (135-145); Total Bilirubin 0.6 mg/dl (0.2-1.3); Total Protein 5.8 g/dl (6.3-8.2); eGFR > 60.00
[2023-08-25 07:10] VITALS: BP 144/79
--- NOTE | 2023-08-25 07:20 | PN.DE.MGMTRT ---
Insulin Management
- -
: Diabetes Management Consult:
53 year old female who presented with severe cellulitis and necrosis of the right breast concerning for Malignancy.
PMH: IBS and Anxiety. New dx of T2DM, A1C 12.9%. Glucose on admission 316, FBG 315 this AM.
Pt is currently in the OR for debridement and not available for interview.
Currently on low corrective insulin only.
Will start Lantus 12 units, 1st dose @HS, AC NovoLog 4 units and low corrective with meals.
Hold AC NovoLog if pt remains NPO after procedure and utilize corrective insulin.
Change diet to 1800 kris, Accucheks AC/HS and 3am blood sugar.
start Metformin 500mg BID, 1st dose tomorrow AM.
Will provide meter and Insulin instructions when pt is ready for diabetes Education.
Will follow closely and make necessary insulin dose adjustments as A1C 12.9%
08/19/2023: Diabetes Management Follow up
POD 1 s/p debridement R breast. Patient consumed dinner, glucose trended up to 306. Will increase AC NovoLog to 6 units. Metformin 500 mg BID to start this AM. Received 12 units Lantus @ HS. Fasting glucose 318. Will increase hs Lantus to 20
units. Will follow.
08/19/2023: Diabetes Education
Patient awake and alert. States she has not been to a doctor in 4 or more years. Provided Contour Next glucose monitor and instructed on procedure to test glucose. Patient states she is very familiar because most of her family has diabetes. I
discussed her A1C of 12.9%, which she knew was high, and goal to get down to less than 7%. Instructed on use of prefilled insulin pen. Will ask nursing to have patient prepare and take her insulin with pen to reinforce steps. Printed step by step
instructions given to patient as well.
08/20/2023: Diabetes Management F/U:
Patient improving. Glucose remains elevated > 200. Will again increase Lantus to 25 units and AC NovoLog to 10 units. She has given herself insulin pre lunch and dinner and did well. Will reinforce steps for self injection and s & S hypoglycemia
and treatment.
08/21/2023: Diabetes Management F/U:
Glucose remains elevated, FBG 196 this AM, Premeal range also >200 (228-248), requiring 1-2 units of corrective insulin
Will increase Lantus to 27 units and AC NovoLog to 12 units.
Will follow closely and make necessary insulin dose adjustments as A1C 12.9%
08/24/2023: Diabetes Management F/U:
Pt NPO for OR today. Received half dose of Lantus @ HS.
Glucose stable and in range 110-153, FBG 116 this AM.
Her breakfast NovoLog dose was held. Will make no changes to current regimen: Lantus to 27 units and AC NovoLog to 12 units.
Pt reports that she has been having severe Nausea and diarrhea since start of Metformin, she does not want to continue taking it, will D/C MFM.
Spoke to pt and - Pat at length regarding lifestyle modification: Exercise, CHO counting (encouraged non-starchy veggies and salads), monitoring and taking her meds, suggested XL MFM, pt agreeable but would like to wait until she has d/w her
PCP.
Will follow closely and make necessary insulin dose adjustments as A1C 12.9%
08/25/2023 Diabetes Management Follow up
S/P OR yesterday for debridement breast. Glucose stable on current regimen, Lantus 27 units @ HS with 12 units novolog AC. Will make no change to regimen today. Metformin has been stopped due to diarrhea and nausea.
Diabetes History
- -
Type of Diabetes: 2 requiring insulin
Pre-Admission Diabetes Regimen
08/25/23
05:19
Creatinine 0.3 L
Lab Results
Hemoglobin A1c 12.9 % (4.0-5.6) H 08/18/23 05:03
Insulin Pump Settings
IP Diabetes Regimen
08/24/23 08/24/23 08/24/23
07:28 12:00 15:03
Glucose
POC Glucose 124 H 110 H 96
08/24/23 08/24/23 08/24/23
17:00 20:55 23:19
Glucose
POC Glucose 106 H 159 H 136 H
08/25/23
05:19
Glucose 113 H
POC Glucose
Meal type: Lunch
Meal type: Breakfast
Patient Education
[2023-08-25 07:33] LABS: Glucose - Point of Care 125 mg/dl (70-99)
[2023-08-25] MEDS: OXYCONTIN (CONTROLLED RELEASE) 10 MG PO ×2 (08:17→19:47)
[2023-08-25] MEDS: GLUCOPHAGE 500 MG PO (08:17)
[2023-08-25] MEDS: MIRALAX 17 GRAMS PO (08:18)
[2023-08-25] MEDS: NOVOLOG FLEXPEN 12 UNITS SC ×3 (08:18→17:16)
[2023-08-25] MEDS: NOVOLOG FLEXPEN-LOW RESISTANCE SC ×2 (08:18→17:15)
[2023-08-25] MEDS: COLACE 100 MG PO ×2 (08:18→19:47)
[2023-08-25] MEDS: DAKIN'S SOLUTION 0.125% 1/4 STRENGTH 473 ML TOPICAL (08:20)
[2023-08-25] MEDS: DESENEX/MITRAZOL/ZEASORB 1 APPLIC TOPICAL ×2 (08:21→19:48)
[2023-08-25 11:30] LABS: Glucose - Point of Care 167 mg/dl (70-99)
[2023-08-25] MEDS: NOVOLOG FLEXPEN-LOW RESISTANCE 1 UNITS SC (12:14)
--- NOTE | 2023-08-25 14:32 | W.PN.ID1 ---
Date of Service
Date of Service: August 25, 2023
Today's Communication
- switch to levofloxacin/augmentin for another 2 weeks
- path per breast surgery
- follow up in clinic in 1-2 weeks
Assessment / Plan
Breast Cellulitis/abscess
Suspected breast cancer
DM2 - new diagnosis
Class II obesity
- s/p�Incision and drainage right breast abscess x2
- switch to levofloxacin/augmentin for another 2 weeks
- path per breast surgery
- follow up in clinic in 1-2 weeks
Chief Complaint
-: Other (breast cellulitis)
Subjective / Review of Systems
afebrile
bp stable
still with large amout of serous drinage on the dressing
color is better, no longer toxic appearing
Vital Signs / Physical Exam
Vital Signs
Vital Signs
Temp Pulse Resp BP Pulse Ox
98.0 F 85 12 144/79 94
08/25/23 07:10 08/25/23 07:10 08/25/23 07:10 08/25/23 07:10 08/25/23 08:00
Physical Exam
Constitutional: No Acute Distress
Cardiovascular: Regular Rate and S1/S2; Negative Murmur or Rub
Pulmonary: Clear and Symmetric; Negative Wheezes or Rales
Gastrointestinal: Soft, Non Tender, Non Distended and Normal Bowel Sounds
Skin: Warm and Dry; Negative Rash or Jaundice
Wound: Other (packing not removed - external exam serous drainage)
Objective Data
Lab Data
Lab Results
08/25/23 05:19
08/25/23 05:19
Estimated Creat Clear 117 ml/min 08/25/23 05:19
Lactic Acid 1.5 mmol/L (0.7-2.0) 08/17/23 18:29
Total Bilirubin 0.6 mg/dl (0.2-1.3) 08/25/23 05:19
AST 22 U/L (14-36) 08/25/23 05:19
ALT 28 U/L (0-35) 08/25/23 05:19
Alkaline Phosphatase 270 U/L (38-126) H 08/25/23 05:19
Most recent labs reviewed.
Micro Results:
08/24/23 13:51 Wound Culture - Preliminary
Breast - Right Proteus mirabilis
Gram Stain - Preliminary
08/19/23 15:00 Blood Culture - Final
Blood/Venous No Growth - Final Report
08/18/23 18:15 Blood Culture - Final
Blood/Venous No Growth - Final Report
08/18/23 15:30 Wound Culture - Final
Abscess Proteus mirabilis
Gram Stain - Final
08/18/23 15:30 Anaerobic Culture - Final
Abscess
08/17/23 18:29 Blood Culture - Final
Blood/Venous Coagulase neg. staphylococcus
Additional testing on request
Gram Stain - Final
08/17/23 19:30 Wound Culture - Final
Breast - Right Proteus mirabilis
Gram Stain - Final
Care Review
Plan reviewed with: Physician (Dr Nelson - follow up )
--- NOTE | 2023-08-25 15:07 | W.PN.HOSP.TC ---
Today's Communication/Plan
-
see plan
Assessment / Plan
Assessment / Plan
Sepsis (fever, tachycardia) secondary to severe right breast cellulitis with necrosis
-bcx 08/17 with gram-positive cocci in clusters appears contaminant,bcx from 08/18 NGTD. Wound culture with Proteus
US neg for discrete abscess; does have significant edema. Difficult to differentiate between neoplastic and infectious etiologies.
s/p debridment by Dr Nelson. cultures with proteus. pathology consistent with necrosis. s/p further debridement in the OR 08/24
-ID following; abx changed to unasyn-> levaquin/augmentin.
-Breast surgeon following; spoke with Dr Nelson and patient needs to follow up with her and wound care outpatient. they will asesss the need for wound VAC outpatient.
-Pain control; added standing tylenol,added oxycontin. dilaudid prn For severe pain. Oxycodone as needed. Patient will need to follow-up with pain management outpatient
wound management
Follow fever curve
# Hyperglycemia
A1c >12; now with diabetes, new onset
diabetes [employer]UDIO [employer] following
cw insulin,metformin
hypokalemia
resolved
Hyponatremia
Monitor
Constipation
Laxatives
now with BM; improving
Metabolic acidosis on admission
Now improved, stop bicarb
Obesity likely 2/2 excess calories
Anxiety
IBS
Full code
DVT prophylaxis-lovenox
General: Well Developed, Well Nourished and No Apparent Distress
HEENT: NormoCephalic, Moist mucous membranes and Atraumatic
Respiratory: Clear
Cardiac: S1/S2 and Regular Rhythm; No Murmur or Rub
GI: Soft, Non Tender, Non Distended and Normal Bowel Sounds; No Organomegaly
Rectal: Deferred by Provider
Musculoskeletal: No Clubbing, No Cyanosis and No Edema
Skin: Other (right breast erythema)
Neuro: Nonfocal/grossly intact
Anticipated Discharge: 24 - 48 hours
Subjective/Interval History
-
Date of Service: August 25, 2023
pt states pain control improving but requiring IV diluadid to manage breakthrough pain
Objective Data
-
Labs:
Laboratory Results
08/25/23
05:19
WBC 15.7 H
Hgb 11.2 L
Hct 35.7 L
Plt Count 479 H
Sodium 131 L
Potassium 3.9
Chloride 100
Carbon Dioxide 25
BUN 7
Creatinine 0.3 L
Glucose 113 H
Calcium 8.1 L
Total Bilirubin 0.6
AST 22
ALT 28
Alkaline Phosphatase 270 H
Vital Signs:
Vital Signs
Temp Pulse Resp BP Pulse Ox
98.0 F 85 12 144/79 94
08/25/23 07:10 08/25/23 07:10 08/25/23 07:10 08/25/23 07:10 08/25/23 08:00
I&O
08/24/23 08/25/23 08/26/23
06:59 06:59 06:59
Intake Total 2710 / 2710 2728 / 2728
Balance 2710 / 2710 2728 / 2728
Review of Systems
-
History Source: Patient
All other systems: Reviewed and negative
Physical Exam
-
General: Well Developed and No Apparent Distress
HEENT: Normocephalic, Atraumatic and Moist Mucous Membranes
Respiratory: Clear to Auscultation
Cardiac: Regular Rhythm and S1/S2; Negative Murmur, Rub or Gallop
GI: Soft, Nontender, Nondistended and Normal Bowel Sounds; Negative Organomegaly
Rectal: Deferred by Provider
Musculoskeletal: No Clubbing, No Cyanosis and No Edema
Skin: Negative Rash
Neuro: Nonfocal/Grossly Intact
[2023-08-25] MEDS: LEVAQUIN 750 MG PO (15:16)
[2023-08-25] MEDS: NSS IV (15:16)
[2023-08-25 15:25] VITALS: BP 137/72
[2023-08-25 16:34] LABS: Glucose - Point of Care 123 mg/dl (70-99)
[2023-08-25] MEDS: LOVENOX 40 MG SC (17:15)
[2023-08-25] MEDS: AUGMENTIN 875 MG/125 MG 1 TABLET PO (19:47)
[2023-08-25 21:38] LABS: Glucose - Point of Care 176 mg/dl (70-99)
[2023-08-25] MEDS: LANTUS 0.270000000000000018 UNITS SC (21:38)
[2023-08-25 23:04] VITALS: BP 127/78
[2023-08-26] MEDS: ROXICODONE 5 MG PO ×2 (00:54→22:02)
[2023-08-26] MEDS: NSS 500 IV (00:54)
[2023-08-26] MEDS: TYLENOL 1000 MG PO ×3 (03:09→19:43)
[2023-08-26] MEDS: DILAUDID 0.5 MG IV ×2 (03:09→14:51)
[2023-08-26 05:19] LABS: % Basophils 0.9 % (0-2); % Immature Granulocytes 4.7 % (0-0.5); % Lymphocytes 23.5 % (20.5-51.1); % Monocytes 8.4 % (1.7-9.3); % Neutrophils 61.5 % (42.2-75.2); Absolute Basophils 0.1 10^3/uL (0-0.2); Absolute Eosinophils 0.1 10^3/uL (0-0.7); Absolute Immature Granulocytes 0.7 10^3/uL (0-0.05); Absolute Lymphocytes 3.5 10^3/uL (1.2-3.4); Absolute Monocytes 1.2 10^3/uL (0.1-0.6); Absolute Neutrophils 9.1 10^3/uL (1.4-6.5); Hematocrit 38.7 % (37.0-47.0); Hemoglobin 12.4 g/dL (12.0-16.0); Mean Corpuscular Hgb 27.2 pg (27.0-31.0); Mean Corpuscular Volume 84.9 fL (81.0-99.0); Mean Platelet Volume 9.2 fL (7.4-10.4); Nucleated Red Blood Cells % 0 %; Platelet Count 577 10^3/uL (130-400); Red Blood Cell Count 4.56 10^6/uL (4.20-5.40); White Blood Cell Count 14.7 10^3/uL (4.8-10.8)
[2023-08-26 05:57] LABS: ALT (SGPT) 26 U/L (0-35); AST (SGOT) 24 U/L (14-36); Albumin 2.9 g/dl (3.5-5.0); Alkaline Phosphatase 253 U/L (38-126); Blood Urea Nitrogen 6 mg/dl (7-17); Calcium 9.1 mg/dl (8.4-10.2); Carbon Dioxide 28 mmol/L (22-30); Chloride 98 mmol/L (98-107); Estimated Creatinine Clearance 117 ml/min; Glucose 135 mg/dl (70-99); Potassium 4.2 mmol/L (3.5-5.1); Sodium 135 mmol/L (135-145); Total Bilirubin 0.6 mg/dl (0.2-1.3); Total Protein 6.3 g/dl (6.3-8.2); eGFR > 60.00
--- NOTE | 2023-08-26 07:14 | PN.DE.MGMTRT ---
Insulin Management
- -
: Diabetes Management Consult:
53 year old female who presented with severe cellulitis and necrosis of the right breast concerning for Malignancy.
PMH: IBS and Anxiety. New dx of T2DM, A1C 12.9%. Glucose on admission 316, FBG 315 this AM.
Pt is currently in the OR for debridement and not available for interview.
Currently on low corrective insulin only.
Will start Lantus 12 units, 1st dose @HS, AC NovoLog 4 units and low corrective with meals.
Hold AC NovoLog if pt remains NPO after procedure and utilize corrective insulin.
Change diet to 1800 kris, Accucheks AC/HS and 3am blood sugar.
start Metformin 500mg BID, 1st dose tomorrow AM.
Will provide meter and Insulin instructions when pt is ready for diabetes Education.
Will follow closely and make necessary insulin dose adjustments as A1C 12.9%
08/19/2023: Diabetes Management Follow up
POD 1 s/p debridement R breast. Patient consumed dinner, glucose trended up to 306. Will increase AC NovoLog to 6 units. Metformin 500 mg BID to start this AM. Received 12 units Lantus @ HS. Fasting glucose 318. Will increase hs Lantus to 20
units. Will follow.
08/19/2023: Diabetes Education
Patient awake and alert. States she has not been to a doctor in 4 or more years. Provided Contour Next glucose monitor and instructed on procedure to test glucose. Patient states she is very familiar because most of her family has diabetes. I
discussed her A1C of 12.9%, which she knew was high, and goal to get down to less than 7%. Instructed on use of prefilled insulin pen. Will ask nursing to have patient prepare and take her insulin with pen to reinforce steps. Printed step by step
instructions given to patient as well.
08/20/2023: Diabetes Management F/U:
Patient improving. Glucose remains elevated > 200. Will again increase Lantus to 25 units and AC NovoLog to 10 units. She has given herself insulin pre lunch and dinner and did well. Will reinforce steps for self injection and s & S hypoglycemia
and treatment.
08/21/2023: Diabetes Management F/U:
Glucose remains elevated, FBG 196 this AM, Premeal range also >200 (228-248), requiring 1-2 units of corrective insulin
Will increase Lantus to 27 units and AC NovoLog to 12 units.
Will follow closely and make necessary insulin dose adjustments as A1C 12.9%
08/24/2023: Diabetes Management F/U:
Pt NPO for OR today. Received half dose of Lantus @ HS.
Glucose stable and in range 110-153, FBG 116 this AM.
Her breakfast NovoLog dose was held. Will make no changes to current regimen: Lantus to 27 units and AC NovoLog to 12 units.
Pt reports that she has been having severe Nausea and diarrhea since start of Metformin, she does not want to continue taking it, will D/C MFM.
Spoke to pt and - Pat at length regarding lifestyle modification: Exercise, CHO counting (encouraged non-starchy veggies and salads), monitoring and taking her meds, suggested XL MFM, pt agreeable but would like to wait until she has d/w her
PCP.
Will follow closely and make necessary insulin dose adjustments as A1C 12.9%
08/25/2023 Diabetes Management Follow up
S/P OR yesterday for debridement breast. Glucose stable on current regimen, Lantus 27 units @ HS with 12 units novolog AC. Will make no change to regimen today. Metformin has been stopped due to diarrhea and nausea.
08/26/2023 Diabetes Management Follow up
Patient glucose stable, 113 to 167, on current regimen lantus 27 units at HS with novolog 12 units AC. Patient has administered insulin with nursing supervision and has done well. She has been given a glucose monitor and instructed on times to
test and target range, will reinforce today.
Diabetes History
- -
Type of Diabetes: 2 requiring insulin
Pre-Admission Diabetes Regimen
08/26/23
04:40
Creatinine 0.3 L
Lab Results
Hemoglobin A1c 12.9 % (4.0-5.6) H 08/18/23 05:03
Insulin Pump Settings
IP Diabetes Regimen
08/25/23 08/25/23 08/25/23
07:32 11:29 16:33
Glucose
POC Glucose 125 H 167 H 123 H
08/25/23 08/26/23
21:37 04:40
Glucose 135 H
POC Glucose 176 H
Meal type: Lunch
Meal type: Breakfast
Amount consumed: 100%
Amount consumed: 95%
Patient Education
[2023-08-26 07:15] VITALS: BP 132/74
[2023-08-26 07:20] LABS: Glucose - Point of Care 138 mg/dl (70-99)
[2023-08-26] MEDS: NOVOLOG FLEXPEN-LOW RESISTANCE SC (07:58)
[2023-08-26] MEDS: COLACE 100 MG PO ×2 (07:59→19:42)
[2023-08-26] MEDS: OXYCONTIN (CONTROLLED RELEASE) 10 MG PO (07:59)
[2023-08-26] MEDS: MIRALAX 17 GRAMS PO (07:59)
[2023-08-26] MEDS: AUGMENTIN 875 MG/125 MG 1 TABLET PO (07:59)
[2023-08-26] MEDS: LEVAQUIN 750 MG PO (07:59)
[2023-08-26] MEDS: DESENEX/MITRAZOL/ZEASORB 1 APPLIC TOPICAL (08:01)
[2023-08-26] MEDS: DAKIN'S SOLUTION 0.125% 1/4 STRENGTH 473 ML TOPICAL (08:01)
[2023-08-26] MEDS: NOVOLOG FLEXPEN 12 UNITS SC ×3 (08:04→18:04)
[2023-08-26] MEDS: DILAUDID 1 MG IV (10:14)
--- NOTE | 2023-08-26 10:45 | WOUNDNOTE ---
R BREAST (MEDIAL ANTERIOR)
--- NOTE | 2023-08-26 11:11 | W.PN.HOSP.TC ---
Today's Communication/Plan
-
Monitor vital signs and see plan
Continue with antibiotics
Wound care
Increase OxyContin to 20 mg, pain control
Assessment / Plan
Assessment / Plan
Sepsis (fever, tachycardia) secondary to severe right breast cellulitis with necrosis
-bcx 08/17 with gram-positive cocci in clusters appears contaminant,bcx from 08/18 NGTD. Wound culture with Proteus
US neg for discrete abscess; does have significant edema. Difficult to differentiate between neoplastic and infectious etiologies.
s/p debridment by Dr Nelson. cultures with proteus. pathology consistent with necrosis. s/p further debridement in the OR 08/24
-ID following; abx changed to unasyn-> levaquin/augmentin.
-Breast surgeon following; spoke with Dr Nelson and patient needs to follow up with her and wound care outpatient. they will asesss the need for wound VAC outpatient.
-Pain control; added standing tylenol,added oxycontin inc to 20mg. dilaudid prn For severe pain. Oxycodone as needed. Patient will need to follow-up with pain management outpatient
wound management
Follow fever curve
# Hyperglycemia
A1c >12; now with diabetes, new onset
diabetes [employer] following
cw insulin, patient was on metformin and now discontinued due to intolerance
hypokalemia
resolved
Hyponatremia
Monitor
Constipation
Laxatives
now with BM; improving
Metabolic acidosis on admission
Now improved, stop bicarb
Obesity likely 2/2 excess calories
Anxiety
IBS
Full code
DVT prophylaxis-lovenox
General: Well Developed, Well Nourished and No Apparent Distress
HEENT: NormoCephalic, Moist mucous membranes and Atraumatic
Respiratory: Clear
Cardiac: S1/S2 and Regular Rhythm; No Murmur or Rub
GI: Soft, Non Tender, Non Distended and Normal Bowel Sounds; No Organomegaly
Rectal: Deferred by Provider
Musculoskeletal: No Clubbing, No Cyanosis and No Edema
Skin: Other (right breast erythema)
Neuro: Nonfocal/grossly intact
Anticipated Discharge: 24 - 48 hours
Subjective/Interval History
-
Date of Service: August 26, 2023
Still has significant pain
Objective Data
-
Labs:
Laboratory Results
08/26/23
04:40
WBC 14.7 H
Hgb 12.4
Hct 38.7
Plt Count 577 H D
Sodium 135
Potassium 4.2
Chloride 98
Carbon Dioxide 28
BUN 6 L
Creatinine 0.3 L
Glucose 135 H
Calcium 9.1
Total Bilirubin 0.6
AST 24
ALT 26
Alkaline Phosphatase 253 H
Vital Signs:
Vital Signs
Temp Pulse Resp BP Pulse Ox
97.7 F 83 18 132/74 96
08/26/23 07:15 08/26/23 07:15 08/26/23 07:15 08/26/23 07:15 08/26/23 08:00
I&O
08/25/23 08/26/23 08/27/23
06:59 06:59 06:59
Intake Total 2728 / 2728 2540 / 2540
Balance 2728 / 2728 2540 / 2540
[2023-08-26 11:31] LABS: Glucose - Point of Care 171 mg/dl (70-99)
[2023-08-26] MEDS: NOVOLOG FLEXPEN-LOW RESISTANCE 1 UNITS SC ×2 (12:44→18:04)
--- NOTE | 2023-08-26 13:25 | W.PN.ID1 ---
Date of Service
Date of Service: August 26, 2023
Today's Communication
- switch to levofloxacin/augmentin for another 13 days
- path per breast surgery
- follow up in clinic in 1-2 weeks
Assessment / Plan
Breast Cellulitis/abscess
Suspected breast cancer
DM2 - new diagnosis
Class II obesity
- s/p�Incision and drainage right breast abscess x2
- switch to ertapenem for another 13 days - script on chart
- midline
- path per breast surgery
- follow up in clinic in 1-2 weeks
Chief Complaint
-: Other (breast cellulitis)
Subjective / Review of Systems
afebrile
bp stable
declining leukocytosis
thrombocytosis persists
cr stable
08/24 few proteus still growing from the OR
Vital Signs / Physical Exam
Vital Signs
Vital Signs
Temp Pulse Resp BP Pulse Ox
97.7 F 83 18 132/74 96
08/26/23 07:15 08/26/23 07:15 08/26/23 07:15 08/26/23 07:15 08/26/23 08:00
Physical Exam
Constitutional: No Acute Distress
Cardiovascular: Regular Rate and S1/S2; Negative Murmur or Rub
Pulmonary: Clear and Symmetric; Negative Wheezes or Rales
Gastrointestinal: Soft, Non Tender, Non Distended and Normal Bowel Sounds
Skin: Warm and Dry; Negative Rash or Jaundice
Wound: Other (dressing take down deferred)
Objective Data
Lab Data
Lab Results
08/26/23 04:40
08/26/23 04:40
Estimated Creat Clear 117 ml/min 08/26/23 04:40
Lactic Acid 1.5 mmol/L (0.7-2.0) 08/17/23 18:29
Total Bilirubin 0.6 mg/dl (0.2-1.3) 08/26/23 04:40
AST 24 U/L (14-36) 08/26/23 04:40
ALT 26 U/L (0-35) 08/26/23 04:40
Alkaline Phosphatase 253 U/L (38-126) H 08/26/23 04:40
Most recent labs reviewed.
Micro Results:
08/24/23 13:51 Wound Culture - Final
Breast - Right Proteus mirabilis
Gram Stain - Final
08/19/23 15:00 Blood Culture - Final
Blood/Venous No Growth - Final Report
08/18/23 18:15 Blood Culture - Final
Blood/Venous No Growth - Final Report
08/18/23 15:30 Wound Culture - Final
Abscess Proteus mirabilis
Gram Stain - Final
08/18/23 15:30 Anaerobic Culture - Final
Abscess
08/17/23 18:29 Blood Culture - Final
Blood/Venous Coagulase neg. staphylococcus
Additional testing on request
Gram Stain - Final
08/17/23 19:30 Wound Culture - Final
Breast - Right Proteus mirabilis
Gram Stain - Final
--- NOTE | 2023-08-26 14:25 | WOUNDNOTE ---
[facility] RN note: Patient seen around 1045. R breast dressing/packing changed. Patient now has 3 wounds (s/p OR debridement 2 days ago), the medial wound appears clean/pink, the anterior wound is pink with some yellow slough, the lateral wound is pink
with 65% brown/black necrotic tissue. R breast edema and erythema less than last week. No odor. Confirmed local wound care with Dr. Nelson. Nursing care plan and discharge instructions updated. Dr. Nelson requested patient be seen early next week
at [facility]. t/c Spoke with Yaz Ruiz from [facility] and asked her to call patient to make appointment for Thursday or Thursday. t/c Spoke with patient's re: learning/observing wound care with next dressing change tomorrow with patient's
nurse. stated he will be visiting all day tomorrow around 10am. given [facility] phone number. stated he will call [facility] for an appointment for patient for early next week.
[2023-08-26 15:21] VITALS: BP 140/78
[2023-08-26 16:56] LABS: Glucose - Point of Care 157 mg/dl (70-99)
[2023-08-26] MEDS: LOVENOX 40 MG SC (18:03)
[2023-08-26] MEDS: INVANZ IV (18:05)
[2023-08-26] MEDS: INVANZ 60 MG IV (18:24)
[2023-08-26] MEDS: MOTRIN 400 MG PO (18:35)
[2023-08-26] MEDS: OXYCONTIN (CONTROLLED RELEASE) 20 MG PO (19:42)
[2023-08-26] MEDS: DESENEX/MITRAZOL/ZEASORB TOPICAL (19:51)
[2023-08-26] MEDS: LANTUS 0.270000000000000018 UNITS SC (21:56)
[2023-08-26 21:57] LABS: Glucose - Point of Care 195 mg/dl (70-99)
[2023-08-26 23:43] VITALS: BP 144/82
[2023-08-27] MEDS: DILAUDID 0.5 MG IV ×4 (02:31→22:50)
[2023-08-27] MEDS: TYLENOL 1000 MG PO ×3 (04:31→20:13)
[2023-08-27 05:31] LABS: % Basophils 0.7 % (0-2); % Eosinophils 1.5 % (0-6); % Immature Granulocytes 5.1 % (0-0.5); % Lymphocytes 31.6 % (20.5-51.1); % Monocytes 7.6 % (1.7-9.3); % Neutrophils 53.5 % (42.2-75.2); Absolute Basophils 0.1 10^3/uL (0-0.2); Absolute Eosinophils 0.2 10^3/uL (0-0.7); Absolute Immature Granulocytes 0.6 10^3/uL (0-0.05); Absolute Lymphocytes 3.7 10^3/uL (1.2-3.4); Absolute Monocytes 0.9 10^3/uL (0.1-0.6); Absolute Neutrophils 6.2 10^3/uL (1.4-6.5); Hematocrit 34.6 % (37.0-47.0); Hemoglobin 10.8 g/dL (12.0-16.0); Mean Corp Hgb Conc. 31.2 g/dL (33.0-37.0); Mean Corpuscular Hgb 26.9 pg (27.0-31.0); Mean Corpuscular Volume 86.1 fL (81.0-99.0); Nucleated Red Blood Cells % 0 %; Platelet Count 577 10^3/uL (130-400); Red Blood Cell Count 4.02 10^6/uL (4.20-5.40); White Blood Cell Count 11.6 10^3/uL (4.8-10.8)
[2023-08-27 05:55] LABS: Blood Urea Nitrogen 7 mg/dl (7-17); Calcium 8.7 mg/dl (8.4-10.2); Carbon Dioxide 31 mmol/L (22-30); Chloride 102 mmol/L (98-107); Estimated Creatinine Clearance 117 ml/min; Glucose 129 mg/dl (70-99); Potassium 4.4 mmol/L (3.5-5.1); Sodium 137 mmol/L (135-145); eGFR > 60.00
[2023-08-27] MEDS: ROXICODONE 5 MG PO ×3 (06:35→16:28)
--- NOTE | 2023-08-27 07:06 | PN.DE.MGMTRT ---
Insulin Management
- -
: Diabetes Management Consult:
53 year old female who presented with severe cellulitis and necrosis of the right breast concerning for Malignancy.
PMH: IBS and Anxiety. New dx of T2DM, A1C 12.9%. Glucose on admission 316, FBG 315 this AM.
Pt is currently in the OR for debridement and not available for interview.
Currently on low corrective insulin only.
Will start Lantus 12 units, 1st dose @HS, AC NovoLog 4 units and low corrective with meals.
Hold AC NovoLog if pt remains NPO after procedure and utilize corrective insulin.
Change diet to 1800 kris, Accucheks AC/HS and 3am blood sugar.
start Metformin 500mg BID, 1st dose tomorrow AM.
Will provide meter and Insulin instructions when pt is ready for diabetes Education.
Will follow closely and make necessary insulin dose adjustments as A1C 12.9%
08/19/2023: Diabetes Management Follow up
POD 1 s/p debridement R breast. Patient consumed dinner, glucose trended up to 306. Will increase AC NovoLog to 6 units. Metformin 500 mg BID to start this AM. Received 12 units Lantus @ HS. Fasting glucose 318. Will increase hs Lantus to 20
units. Will follow.
08/19/2023: Diabetes Education
Patient awake and alert. States she has not been to a doctor in 4 or more years. Provided Contour Next glucose monitor and instructed on procedure to test glucose. Patient states she is very familiar because most of her family has diabetes. I
discussed her A1C of 12.9%, which she knew was high, and goal to get down to less than 7%. Instructed on use of prefilled insulin pen. Will ask nursing to have patient prepare and take her insulin with pen to reinforce steps. Printed step by step
instructions given to patient as well.
08/20/2023: Diabetes Management F/U:
Patient improving. Glucose remains elevated > 200. Will again increase Lantus to 25 units and AC NovoLog to 10 units. She has given herself insulin pre lunch and dinner and did well. Will reinforce steps for self injection and s & S hypoglycemia
and treatment.
08/21/2023: Diabetes Management F/U:
Glucose remains elevated, FBG 196 this AM, Premeal range also >200 (228-248), requiring 1-2 units of corrective insulin
Will increase Lantus to 27 units and AC NovoLog to 12 units.
Will follow closely and make necessary insulin dose adjustments as A1C 12.9%
08/24/2023: Diabetes Management F/U:
Pt NPO for OR today. Received half dose of Lantus @ HS.
Glucose stable and in range 110-153, FBG 116 this AM.
Her breakfast NovoLog dose was held. Will make no changes to current regimen: Lantus to 27 units and AC NovoLog to 12 units.
Pt reports that she has been having severe Nausea and diarrhea since start of Metformin, she does not want to continue taking it, will D/C MFM.
Spoke to pt and - Pat at length regarding lifestyle modification: Exercise, CHO counting (encouraged non-starchy veggies and salads), monitoring and taking her meds, suggested XL MFM, pt agreeable but would like to wait until she has d/w her
PCP.
Will follow closely and make necessary insulin dose adjustments as A1C 12.9%
08/25/2023 Diabetes Management Follow up
S/P OR yesterday for debridement breast. Glucose stable on current regimen, Lantus 27 units @ HS with 12 units novolog AC. Will make no change to regimen today. Metformin has been stopped due to diarrhea and nausea.
08/26/2023 Diabetes Management Follow up
Patient glucose stable, 113 to 167, on current regimen lantus 27 units at HS with novolog 12 units AC. Patient has administered insulin with nursing supervision and has done well. She has been given a glucose monitor and instructed on times to
test and target range, will reinforce today.
08/27/2023 Diabetes Management Follow up
Glucose stable, did require corrective insulin with lunch and dinner. Will increase AC novolog to 13 units. Fasting glucose 129. Will continue lantus 27 units @ HS. Patient has self injected and feels comfortable.
Diabetes History
- -
Type of Diabetes: 2 requiring insulin
Pre-Admission Diabetes Regimen
08/27/23
05:01
Creatinine 0.4 L
Lab Results
Hemoglobin A1c 12.9 % (4.0-5.6) H 08/18/23 05:03
Insulin Pump Settings
IP Diabetes Regimen
08/26/23 08/26/23 08/26/23
07:19 11:30 16:54
Glucose
POC Glucose 138 H 171 H 157 H
08/26/23 08/27/23
21:55 05:01
Glucose 129 H
POC Glucose 195 H
Meal type: Lunch
Meal type: Breakfast
Amount consumed: 100%
Amount consumed: 0
Patient Education
[2023-08-27 07:26] LABS: Glucose - Point of Care 138 mg/dl (70-99)
[2023-08-27] MEDS: NOVOLOG FLEXPEN-LOW RESISTANCE SC ×3 (07:29→17:16)
[2023-08-27 07:54] VITALS: BP 119/80
[2023-08-27] MEDS: OXYCONTIN (CONTROLLED RELEASE) 20 MG PO ×2 (08:20→20:13)
[2023-08-27] MEDS: NOVOLOG FLEXPEN 13 UNITS SC ×3 (08:20→17:36)
[2023-08-27] MEDS: COLACE 100 MG PO ×2 (08:20→20:13)
[2023-08-27] MEDS: SANTYL OINTMENT 1 APPLIC TOPICAL (08:21)
[2023-08-27] MEDS: MIRALAX PO (08:21)
[2023-08-27] MEDS: DAKIN'S SOLUTION 0.125% 1/4 STRENGTH 1 ML TOPICAL (08:22)
[2023-08-27] MEDS: DESENEX/MITRAZOL/ZEASORB 1 APPLIC TOPICAL (08:22)
--- NOTE | 2023-08-27 10:17 | WOUNDNOTE ---
[facility] RN note: t/c Spoke with RN Tc Chavira who will instruct wound care this afternoon. Plan is home when discharged and follow up next week at [facility] (appointment 08/31/23 at 1230).
--- NOTE | 2023-08-27 11:12 | W.PN.HOSP.TC ---
Today's Communication/Plan
-
Monitor vital signs and see plan
Wound care
Still requiring IV Dilaudid at times, increased oxycodone to 10 mg for breakthrough pain. Continue with OxyContin
Continue with insulin
Set up home antibiotics
Hopeful DC when pain controlled
Assessment / Plan
Assessment / Plan
Sepsis (fever, tachycardia) secondary to severe right breast cellulitis with necrosis
-bcx 08/17 with gram-positive cocci in clusters appears contaminant,bcx from 08/18 NGTD. Wound culture with Proteus
US neg for discrete abscess; does have significant edema. Difficult to differentiate between neoplastic and infectious etiologies.
s/p debridment by Dr Nelson. cultures with proteus. pathology consistent with necrosis. s/p further debridement in the OR 08/24
-ID following; abx changed to unasyn-> levaquin/augmentin. given persistent Proteus and wound ID decided to start ertapenem. Patient to go home eventually on ertapenem. CM for home abx
-Breast surgeon following; spoke with Dr Nelson and patient needs to follow up with her and wound care outpatient. they will asesss the need for wound VAC outpatient.
-Pain control; added standing tylenol,added oxycontin inc to 20mg. dilaudid prn For severe pain. Oxycodone as needed, increased to 10mg for breakthrough pain. Patient will need to follow-up with pain management outpatient
wound management
Follow fever curve
# Hyperglycemia
A1c >12; now with diabetes, new onset
diabetes [employer] COUNSEL following
cw insulin, patient was on metformin and now discontinued due to intolerance
hypokalemia
resolved
Hyponatremia
Monitor
Constipation
Laxatives
now with BM; improving
Metabolic acidosis on admission
Now improved, stop bicarb
Obesity likely 2/2 excess calories
Anxiety
IBS
Full code
DVT prophylaxis-lovenox
General: Well Developed, Well Nourished and No Apparent Distress
HEENT: NormoCephalic, Moist mucous membranes and Atraumatic
Respiratory: Clear
Cardiac: S1/S2 and Regular Rhythm; No Murmur or Rub
GI: Soft, Non Tender, Non Distended and Normal Bowel Sounds; No Organomegaly
Rectal: Deferred by Provider
Musculoskeletal: No Clubbing, No Cyanosis and No Edema
Skin: Other (right breast erythema)
Neuro: Nonfocal/grossly intact
Anticipated Discharge: Within 24 hours
Subjective/Interval History
-
Date of Service: August 27, 2023
still has pain
Objective Data
-
Labs:
Laboratory Results
08/27/23
05:01
WBC 11.6 H
Hgb 10.8 L
Hct 34.6 L
Plt Count 577 H
Sodium 137
Potassium 4.4
Chloride 102
Carbon Dioxide 31 H
BUN 7
Creatinine 0.4 L
Glucose 129 H
Calcium 8.7
Vital Signs:
Vital Signs
Temp Pulse Resp BP Pulse Ox
97.8 F 82 12 119/80 95
08/27/23 07:54 08/27/23 07:54 08/27/23 07:54 08/27/23 07:54 08/27/23 07:54
I&O
08/26/23 08/27/23 08/28/23
06:59 06:59 06:59
Intake Total 2540 / 2540 1380 / 1380
Balance 2540 / 2540 1380 / 1380
[2023-08-27 11:50] LABS: Glucose - Point of Care 123 mg/dl (70-99)
--- NOTE | 2023-08-27 13:57 | W.PN.ID1 ---
Date of Service
Date of Service: August 27, 2023
Today's Communication
Continue antibiotics.
Assessment / Plan
Breast Cellulitis/abscess
DM2 - new diagnosis
Class II obesity
- s/p�Incision and drainage right breast abscess x2
- Continue ertapenem for another 12 days - script on chart
- midline placed
- path per breast surgery
- follow up in ID clinic in 1-2 weeks
����������������������������������������������������������
Chief Complaint
-: Other (breast cellulitis)
Subjective / Review of Systems
Patient seen and examined. No significant complaints overnight. Tolerating antibiotics without difficulty.
Review of Systems: No Fever and No Chills
Vital Signs / Physical Exam
Vital Signs
Vital Signs
Temp Pulse Resp BP Pulse Ox
97.8 F 82 12 119/80 95
08/27/23 07:54 08/27/23 07:54 08/27/23 07:54 08/27/23 07:54 08/27/23 07:54
Physical Exam
Constitutional: No Acute Distress, Comfortable and Non-toxic
Eyes: Sclera Anicteric
Cardiovascular: S1/S2; Negative S3/S4
Pulmonary: Clear and Non Labored
Gastrointestinal: Soft, Non Distended and Normal Bowel Sounds
Wound: Other (Right breast area dressed. No significant malodor.)
Neurological: Awake and Alert
Psychological: Calm
Objective Data
Lab Data
Lab Results
08/27/23 05:01
08/27/23 05:01
Estimated Creat Clear 117 ml/min 08/27/23 05:01
Lactic Acid 1.5 mmol/L (0.7-2.0) 08/17/23 18:29
Total Bilirubin 0.6 mg/dl (0.2-1.3) 08/26/23 04:40
AST 24 U/L (14-36) 08/26/23 04:40
ALT 26 U/L (0-35) 08/26/23 04:40
Alkaline Phosphatase 253 U/L (38-126) H 08/26/23 04:40
Most recent labs reviewed.
Micro Results:
08/24/23 13:51 Wound Culture - Final
Breast - Right Proteus mirabilis
Gram Stain - Final
08/19/23 15:00 Blood Culture - Final
Blood/Venous No Growth - Final Report
08/18/23 18:15 Blood Culture - Final
Blood/Venous No Growth - Final Report
08/18/23 15:30 Wound Culture - Final
Abscess Proteus mirabilis
Gram Stain - Final
08/18/23 15:30 Anaerobic Culture - Final
Abscess
08/17/23 18:29 Blood Culture - Final
Blood/Venous Coagulase neg. staphylococcus
Additional testing on request
Gram Stain - Final
08/17/23 19:30 Wound Culture - Final
Breast - Right Proteus mirabilis
Gram Stain - Final
[2023-08-27] MEDS: DILAUDID 1 MG IV (14:20)
[2023-08-27 15:05] VITALS: BP 141/84
--- NOTE | 2023-08-27 15:58 | CM ---
Discharge Plan of Care: Home w [facility] for IV/AB. Referral faxed w script for IV's. Midline placed on this date. Spoke with patient and . Expressed understanding.
[2023-08-27 17:09] LABS: Glucose - Point of Care 107 mg/dl (70-99)
[2023-08-27] MEDS: INVANZ 60 MG IV (17:35)
[2023-08-27] MEDS: LOVENOX 40 MG SC (17:35)
[2023-08-27] MEDS: DESENEX/MITRAZOL/ZEASORB TOPICAL (20:13)
[2023-08-27 21:50] LABS: Glucose - Point of Care 156 mg/dl (70-99)
[2023-08-27] MEDS: LANTUS 0.270000000000000018 UNITS SC (22:11)
[2023-08-27 23:17] VITALS: BP 150/86
[2023-08-28] MEDS: ROXICODONE 10 MG PO ×3 (00:39→21:38)
[2023-08-28] MEDS: DILAUDID 0.5 MG IV ×3 (03:25→18:10)
[2023-08-28] MEDS: TYLENOL 1000 MG PO ×3 (03:25→19:52)
[2023-08-28] MEDS: MOTRIN 400 MG PO (06:04)
[2023-08-28 06:49] LABS: % Basophils 0.7 % (0-2); % Eosinophils 2.3 % (0-6); % Immature Granulocytes 3.2 % (0-0.5); % Lymphocytes 25.5 % (20.5-51.1); % Monocytes 7.9 % (1.7-9.3); % Neutrophils 60.4 % (42.2-75.2); Absolute Basophils 0.1 10^3/uL (0-0.2); Absolute Eosinophils 0.3 10^3/uL (0-0.7); Absolute Immature Granulocytes 0.4 10^3/uL (0-0.05); Absolute Lymphocytes 2.8 10^3/uL (1.2-3.4); Absolute Monocytes 0.9 10^3/uL (0.1-0.6); Absolute Neutrophils 6.7 10^3/uL (1.4-6.5); Hematocrit 32.5 % (37.0-47.0); Hemoglobin 10.2 g/dL (12.0-16.0); Mean Corp Hgb Conc. 31.4 g/dL (33.0-37.0); Mean Corpuscular Hgb 26.3 pg (27.0-31.0); Mean Corpuscular Volume 83.8 fL (81.0-99.0); Mean Platelet Volume 8.9 fL (7.4-10.4); Nucleated Red Blood Cells % 0 %; Platelet Count 549 10^3/uL (130-400); Red Blood Cell Count 3.88 10^6/uL (4.20-5.40); Red Cell Dist. Width 13.3 % (11.5-14.5); White Blood Cell Count 11.1 10^3/uL (4.8-10.8)
[2023-08-28 07:03] VITALS: BP 154/92
[2023-08-28 07:14] LABS: Blood Urea Nitrogen 8 mg/dl (7-17); Calcium 8.9 mg/dl (8.4-10.2); Carbon Dioxide 28 mmol/L (22-30); Chloride 99 mmol/L (98-107); Estimated Creatinine Clearance 117 ml/min; Glucose 134 mg/dl (70-99); Potassium 4.1 mmol/L (3.5-5.1); Sodium 136 mmol/L (135-145); eGFR > 60.00
--- NOTE | 2023-08-28 08:22 | PN.DE.MGMTRT ---
Insulin Management
- -
: Diabetes Management Consult:
53 year old female who presented with severe cellulitis and necrosis of the right breast concerning for Malignancy.
PMH: IBS and Anxiety. New dx of T2DM, A1C 12.9%. Glucose on admission 316, FBG 315 this AM.
Pt is currently in the OR for debridement and not available for interview.
Currently on low corrective insulin only.
Will start Lantus 12 units, 1st dose @HS, AC NovoLog 4 units and low corrective with meals.
Hold AC NovoLog if pt remains NPO after procedure and utilize corrective insulin.
Change diet to 1800 kris, Accucheks AC/HS and 3am blood sugar.
start Metformin 500mg BID, 1st dose tomorrow AM.
Will provide meter and Insulin instructions when pt is ready for diabetes Education.
Will follow closely and make necessary insulin dose adjustments as A1C 12.9%
08/19/2023: Diabetes Management Follow up
POD 1 s/p debridement R breast. Patient consumed dinner, glucose trended up to 306. Will increase AC NovoLog to 6 units. Metformin 500 mg BID to start this AM. Received 12 units Lantus @ HS. Fasting glucose 318. Will increase hs Lantus to 20
units. Will follow.
08/19/2023: Diabetes Education
Patient awake and alert. States she has not been to a doctor in 4 or more years. Provided Contour Next glucose monitor and instructed on procedure to test glucose. Patient states she is very familiar because most of her family has diabetes. I
discussed her A1C of 12.9%, which she knew was high, and goal to get down to less than 7%. Instructed on use of prefilled insulin pen. Will ask nursing to have patient prepare and take her insulin with pen to reinforce steps. Printed step by step
instructions given to patient as well.
08/20/2023: Diabetes Management F/U:
Patient improving. Glucose remains elevated > 200. Will again increase Lantus to 25 units and AC NovoLog to 10 units. She has given herself insulin pre lunch and dinner and did well. Will reinforce steps for self injection and s & S hypoglycemia
and treatment.
08/21/2023: Diabetes Management F/U:
Glucose remains elevated, FBG 196 this AM, Premeal range also >200 (228-248), requiring 1-2 units of corrective insulin
Will increase Lantus to 27 units and AC NovoLog to 12 units.
Will follow closely and make necessary insulin dose adjustments as A1C 12.9%
08/24/2023: Diabetes Management F/U:
Pt NPO for OR today. Received half dose of Lantus @ HS.
Glucose stable and in range 110-153, FBG 116 this AM.
Her breakfast NovoLog dose was held. Will make no changes to current regimen: Lantus to 27 units and AC NovoLog to 12 units.
Pt reports that she has been having severe Nausea and diarrhea since start of Metformin, she does not want to continue taking it, will D/C MFM.
Spoke to pt and - Pat at length regarding lifestyle modification: Exercise, CHO counting (encouraged non-starchy veggies and salads), monitoring and taking her meds, suggested XL MFM, pt agreeable but would like to wait until she has d/w her
PCP.
Will follow closely and make necessary insulin dose adjustments as A1C 12.9%
08/25/2023 Diabetes Management Follow up
S/P OR yesterday for debridement breast. Glucose stable on current regimen, Lantus 27 units @ HS with 12 units NovoLog AC. Will make no change to regimen today. Metformin has been stopped due to diarrhea and nausea.
08/26/2023 Diabetes Management Follow up
Patient glucose stable, 113 to 167, on current regimen Lantus 27 units at HS with NovoLog 12 units AC. Patient has administered insulin with nursing supervision and has done well. She has been given a glucose monitor and instructed on times to
test and target range, will reinforce today.
08/27/2023 Diabetes Management Follow up
Glucose stable, did require corrective insulin with lunch and dinner. Will increase AC NovoLog to 13 units. Fasting glucose 129. Will continue Lantus 27 units @ HS. Patient has self injected and feels comfortable.
08/28/2023: Diabetes Management F/U:
Glucose stable and in range 107-138, FBG 134 this AM, on current regimen Lantus 27 units at HS with NovoLog 13 units AC.
Will make no change to regimen today. Metformin has been stopped due to diarrhea and nausea.
Diabetes History
- -
Type of Diabetes: 2 requiring insulin
Pre-Admission Diabetes Regimen
08/28/23
06:02
Creatinine 0.4 L
Lab Results
Hemoglobin A1c 12.9 % (4.0-5.6) H 08/18/23 05:03
Insulin Pump Settings
IP Diabetes Regimen
08/27/23 08/27/23 08/27/23
11:49 17:08 21:46
Glucose
POC Glucose 123 H 107 H 156 H
08/28/23
06:02
Glucose 134 H
POC Glucose
Meal type: Dinner
Meal type: Lunch
Meal type: Breakfast
Amount consumed: 100%
Amount consumed: 100%
Amount consumed: 100%
Patient Education
[2023-08-28 08:41] LABS: Glucose - Point of Care 141 mg/dl (70-99)
[2023-08-28] MEDS: NOVOLOG FLEXPEN-LOW RESISTANCE SC (08:57)
[2023-08-28] MEDS: NOVOLOG FLEXPEN 13 UNITS SC ×3 (08:57→17:58)
[2023-08-28] MEDS: MIRALAX 17 GRAMS PO (08:58)
[2023-08-28] MEDS: SANTYL OINTMENT 1 APPLIC TOPICAL (08:58)
[2023-08-28] MEDS: OXYCONTIN (CONTROLLED RELEASE) 20 MG PO ×2 (08:58→19:52)
[2023-08-28] MEDS: COLACE 100 MG PO ×2 (08:59→19:52)
[2023-08-28] MEDS: DAKIN'S SOLUTION 0.125% 1/4 STRENGTH 473 ML TOPICAL (09:02)
[2023-08-28] MEDS: DESENEX/MITRAZOL/ZEASORB 1 APPLIC TOPICAL (09:03)
[2023-08-28 11:39] LABS: Glucose - Point of Care 174 mg/dl (70-99)
[2023-08-28] MEDS: NOVOLOG FLEXPEN-LOW RESISTANCE 1 UNITS SC ×2 (12:49→17:58)
[2023-08-28] MEDS: DILAUDID 1 MG IV (14:16)
[2023-08-28 15:20] VITALS: BP 182/86
[2023-08-28] MEDS: APRESOLINE 5 MG IV (15:23)
--- NOTE | 2023-08-28 15:42 | CM ---
Patient continues to require IV/analgesia for breast pain and prior to dressing changes. In anticipation of discharge home [facility] will provide
IV/AB, education and instructions, midline dressing changes and lab draws. Records previously forwarded, script and midline insertion report also forwarded. Anticipate discharge early next week. Alicia at [facility] has all information needed.
She will visit patient to provide instructions and education prior to discharge. Patient aware.
--- NOTE | 2023-08-28 15:43 | W.PN.HOSP.TC ---
Today's Communication/Plan
-
continue current Tx, hopefully pain will attenuate over next 72 hrs with planned dc on 08/31
Assessment / Plan
Assessment / Plan
Sepsis (fever, tachycardia) secondary to severe right breast cellulitis with necrosis
-bcx 08/17 with gram-positive cocci in clusters appears contaminant,bcx from 08/18 NGTD. Wound culture with Proteus
US neg for discrete abscess; does have significant edema. Difficult to differentiate between neoplastic and infectious etiologies.
s/p debridment by Dr Nelson. cultures with proteus. pathology consistent with necrosis. s/p further debridement in the OR 08/24
-ID following; abx changed to unasyn-> levaquin/augmentin. given persistent Proteus and wound ID decided to start ertapenem. Patient to go home eventually on ertapenem. CM for home abx
-Breast surgeon following; spoke with Dr Nelson and patient needs to follow up with her and wound care outpatient. they will asesss the need for wound VAC outpatient.
-Pain control; added standing tylenol,added oxycontin inc to 20mg. dilaudid prn For severe pain. Oxycodone as needed, increased to 10mg for breakthrough pain. Patient will need to follow-up with pain management outpatient. During dressing change
pt is having signficant pain, even though received IV Dilaudid prior to dressing change
wound management
afebrile since 08/22
Call placed to Coby Reich CM, regarding potential dc. She states that [facility] would prefer holding dc until Thursday, when they would have time to work with pt prior to dc and hopefully by then pain would have decreased sufficiently to allow oral
agents only, even with dressing change. this is a realistic plan
# Hyperglycemia
A1c >12; now with diabetes, new onset
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
cw insulin, patient was on metformin and now discontinued due to intolerance
glu well controlled 107-174 range, will continue current insulin dosing
hypokalemia
resolved
Hyponatremia
resolved
Constipation
Laxatives
now with BM; improving
Metabolic acidosis on admission
Now improved, stop bicarb
Obesity likely 2/2 excess calories
Anxiety
IBS
Full code
DVT prophylaxis-lovenox
continue current Tx
Anticipated Discharge: > 48 hours
Subjective/Interval History
-
Date of Service: August 28, 2023
In process of wound care to breast lesion
Objective Data
-
Labs:
Laboratory Results
08/28/23 08/28/23
06:02 06:03
WBC 11.1 H
Hgb 10.2 L
Hct 32.5 L
Plt Count 549 H
Sodium 136
Potassium 4.1
Chloride 99
Carbon Dioxide 28
BUN 8
Creatinine 0.4 L
Glucose 134 H
Calcium 8.9
Vital Signs:
Vital Signs
Temp Pulse Resp BP Pulse Ox
98.1 F 88 18 182/86 95
08/28/23 15:20 08/28/23 15:23 08/28/23 15:20 08/28/23 15:23 08/28/23 15:20
I&O
08/27/23 08/28/23 08/29/23
06:59 06:59 06:59
Intake Total 1380 / 1380 1225 / 1225
Balance 1380 / 1380 1225 / 1225
Review of Systems
-
History Source: Patient and Family ( at bedside)
Constitutional: Denies Fever
EENT: Reports No Symptoms Reported
Respiratory: Reports No Symptoms
Cardiac: Reports No Symptoms
Abdomen/GI: Reports No Symptoms
Breast: Reports Pain (post surgical intervention)
Genitourinary: Reports No Symptoms
Neuro: Reports No Symptoms
Physical Exam
-
General: Well Developed, Well Nourished and No Apparent Distress
HEENT: Normocephalic, Atraumatic and Moist Mucous Membranes
Respiratory: Clear to Auscultation; Negative Wheezes, Rales or Rhonchi
Cardiac: Regular Rhythm and S1/S2
Breast: Other (rt breast in process of wound care treatment)
GI: Soft and Nontender
Neuro: Awake, Alert and Oriented
[2023-08-28 16:00] VITALS: BP 130/72
[2023-08-28 16:46] VITALS: BP 130/72
[2023-08-28 16:48] LABS: Glucose - Point of Care 162 mg/dl (70-99)
[2023-08-28] MEDS: LOVENOX 40 MG SC (17:57)
[2023-08-28] MEDS: INVANZ 60 MG IV (17:58)
[2023-08-28] MEDS: DESENEX/MITRAZOL/ZEASORB TOPICAL (19:52)
[2023-08-28 21:01] LABS: Glucose - Point of Care 138 mg/dl (70-99)
[2023-08-28] MEDS: LANTUS 0.270000000000000018 UNITS SC (21:05)
[2023-08-28 23:05] VITALS: BP 137/64
[2023-08-29] MEDS: DILAUDID 0.5 MG IV (01:09)
[2023-08-29] MEDS: TYLENOL PO (04:38)
[2023-08-29] MEDS: ROXICODONE 5 MG PO (04:44)
[2023-08-29] MEDS: TYLENOL 1000 MG PO ×3 (04:44→19:55)
[2023-08-29 07:00] VITALS: BP 143/83
[2023-08-29 07:01] LABS: Glucose - Point of Care 113 mg/dl (70-99)
[2023-08-29] MEDS: NOVOLOG FLEXPEN-LOW RESISTANCE SC ×3 (07:49→18:14)
[2023-08-29] MEDS: NOVOLOG FLEXPEN 13 UNITS SC ×3 (08:30→18:15)
[2023-08-29] MEDS: MIRALAX 17 GRAMS PO (08:31)
[2023-08-29] MEDS: COLACE 100 MG PO ×2 (08:31→19:55)
[2023-08-29] MEDS: SANTYL OINTMENT 1 APPLIC TOPICAL (08:32)
[2023-08-29] MEDS: OXYCONTIN (CONTROLLED RELEASE) 20 MG PO ×3 (08:35→23:21)
[2023-08-29] MEDS: DESENEX/MITRAZOL/ZEASORB 1 APPLIC TOPICAL (08:37)
[2023-08-29] MEDS: DAKIN'S SOLUTION 0.125% 1/4 STRENGTH 473 ML TOPICAL (08:37)
--- NOTE | 2023-08-29 09:15 | W.PN.ID1 ---
Date of Service
Date of Service: August 29, 2023
Today's Communication
Continue current antibiotics. Local care to wound.
Assessment / Plan
Breast Cellulitis/abscess
DM2 - new diagnosis
Class II obesity
- s/p�Incision and drainage right breast abscess x2
- Continue ertapenem for another 10 days - script on chart for home infusion.
- midline placed
- path negative for carcinoma
- Patient to follow up in ID clinic in 1-2 weeks
����������������������������������������������������������
Chief Complaint
-: Other (Right breast cellulitis / abscess)
Subjective / Review of Systems
Patient seen and examined. Still reports discomfort in the right breast area.
Review of Systems: No Fever and No Chills
Vital Signs / Physical Exam
Vital Signs
Vital Signs
Temp Pulse Resp BP Pulse Ox
97.7 F 80 16 143/83 97
08/29/23 07:00 08/29/23 07:00 08/29/23 07:00 08/29/23 07:00 08/29/23 07:00
Physical Exam
Constitutional: No Acute Distress, Comfortable and Non-toxic
Eyes: Sclera Anicteric
Pulmonary: Non Labored
Gastrointestinal: Non Distended
Wound: Other (Right breast with medial incision currently packed. Little significant drainage. No malodor. Wound edges without erythema.)
Neurological: Awake and Alert
Psychological: Calm
Objective Data
Lab Data
Lab Results
08/28/23 06:03
08/28/23 06:02
Estimated Creat Clear 117 ml/min 08/28/23 06:02
Lactic Acid 1.5 mmol/L (0.7-2.0) 08/17/23 18:29
Total Bilirubin 0.6 mg/dl (0.2-1.3) 08/26/23 04:40
AST 24 U/L (14-36) 08/26/23 04:40
ALT 26 U/L (0-35) 08/26/23 04:40
Alkaline Phosphatase 253 U/L (38-126) H 08/26/23 04:40
Most recent labs reviewed.
Micro Results:
08/24/23 13:51 Wound Culture - Final
Breast - Right Proteus mirabilis
Gram Stain - Final
08/19/23 15:00 Blood Culture - Final
Blood/Venous No Growth - Final Report
08/18/23 18:15 Blood Culture - Final
Blood/Venous No Growth - Final Report
08/18/23 15:30 Wound Culture - Final
Abscess Proteus mirabilis
Gram Stain - Final
08/18/23 15:30 Anaerobic Culture - Final
Abscess
08/17/23 18:29 Blood Culture - Final
Blood/Venous Coagulase neg. staphylococcus
Additional testing on request
Gram Stain - Final
08/17/23 19:30 Wound Culture - Final
Breast - Right Proteus mirabilis
Gram Stain - Final
Wound/abscess/other Cult Final 08/26/23-54
Few Proteus mirabilis
Organism 1 Proteus mirabilis
1. Proteus mirabilis
M.I.C. RX
--------- ---
Amoxicillin/Potas. Clavulanate <=8/4 S
Ampicillin <=8 S
Ampicillin/Sulbactam <=8/4 S
Cefazolin <=2 S
Ertapenem <=0.5 S
Ciprofloxacin <=0.25 S
Gentamicin <=4 S
Levofloxacin <=0.5 S
Meropenem <=1 S
Piperacillin/Tazobactam <=16 S
Tobramycin <=4 S
Trimethoprim/Sulfamethoxazole <=2/38 S
Care Review
Plan reviewed with: Physician (Hospitalist)
--- NOTE | 2023-08-29 11:30 | W.PN.HOSP.TC ---
Today's Communication/Plan
-
adjust Oxycontin
Will plan for dc on 08/31 as per CM
Assessment / Plan
Assessment / Plan
Sepsis (fever, tachycardia) secondary to severe right breast cellulitis with necrosis
-bcx 08/17 with gram-positive cocci in clusters appears contaminant,bcx from 08/18 NGTD. Wound culture with Proteus
US neg for discrete abscess; does have significant edema. Difficult to differentiate between neoplastic and infectious etiologies.
s/p debridment by Dr Nelson. cultures with proteus. pathology consistent with necrosis. No evidence of neoplasm noted. s/p further debridement in the OR 08/24
-ID following; abx changed to unasyn-> levaquin/augmentin. given persistent Proteus and wound ID decided to start ertapenem. Patient to go home eventually on ertapenem. CM for home abx
-Breast surgeon following; spoke with Dr Nelson and patient needs to follow up with her and wound care outpatient. they will asesss the need for wound VAC outpatient.
-Pain control; added standing tylenol,added oxycontin inc to 20mg. will adjust timing to q8h, dilaudid prn For severe pain. Oxycodone as needed, increased to 10mg for breakthrough pain. Patient will need to follow-up with pain management
outpatient. During dressing change pt is having significant pain, even though received IV Dilaudid prior to dressing change
wound management
afebrile since 08/22
Call placed to Coby Reich CM, regarding potential dc. She states that [facility] would prefer holding dc until Thursday, when they would have time to work with pt prior to dc and hopefully by then pain would have decreased sufficiently to allow oral
agents only, even with dressing change. this is a realistic plan, discussed with pt and and they are agreeable
# Hyperglycemia
A1c >12; now with diabetes, new onset
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
cw insulin, patient was on metformin and now discontinued due to intolerance
glu well controlled 107-174 range, will continue current insulin dosing
hypokalemia
resolved
Hyponatremia
resolved
Constipation
Laxatives
now with BM; improving
Metabolic acidosis on admission
Now improved, stop bicarb
Obesity likely 2/2 excess calories
Anxiety
IBS
Full code
DVT prophylaxis-lovenox
continue current abx and insulin, adjust freq of oxycontin
Anticipated Discharge: 24 - 48 hours
Subjective/Interval History
-
Date of Service: August 29, 2023
Generally feels better, but does not believe oxy is lasting a full 12 hrs and continues to require Dilaudid during bandage changes
Objective Data
-
Vital Signs:
Vital Signs
Temp Pulse Resp BP Pulse Ox
97.7 F 80 16 143/83 97
08/29/23 07:00 08/29/23 07:00 08/29/23 07:00 08/29/23 07:00 08/29/23 08:00
I&O
08/28/23 08/29/23 08/30/23
06:59 06:59 06:59
Intake Total 1225 / 1225 840 / 840
Balance 1225 / 1225 840 / 840
Review of Systems
-
History Source: Patient and Family ( at bedside)
Constitutional: Denies Fever
EENT: Reports No Symptoms Reported
Respiratory: Reports No Symptoms
Cardiac: Reports No Symptoms
Abdomen/GI: Reports No Symptoms
Breast: Reports Pain (post surgical wound intervention with significant pain)
Genitourinary: Reports No Symptoms
Neuro: Reports No Symptoms
Physical Exam
-
General: Well Developed, Well Nourished and No Apparent Distress
HEENT: Normocephalic, Atraumatic and Moist Mucous Membranes
Respiratory: Clear to Auscultation; Negative Wheezes, Rales or Rhonchi
Cardiac: Regular Rhythm and S1/S2
GI: Soft and Nontender
Neuro: Awake, Alert and Oriented
[2023-08-29 12:36] LABS: Glucose - Point of Care 116 mg/dl (70-99)
[2023-08-29] MEDS: DILAUDID 1 MG IV (13:58)
[2023-08-29] MEDS: FLUSH (NSS) 2 FLUSH IV (13:59)
[2023-08-29 15:10] VITALS: BP 146/91
[2023-08-29] MEDS: LOVENOX 40 MG SC (16:40)
[2023-08-29] MEDS: INVANZ 60 MG IV (16:42)
[2023-08-29 17:49] LABS: Glucose - Point of Care 146 mg/dl (70-99)
[2023-08-29] MEDS: DESENEX/MITRAZOL/ZEASORB TOPICAL (19:55)
[2023-08-29 22:06] LABS: Glucose - Point of Care 145 mg/dl (70-99)
[2023-08-29] MEDS: LANTUS 0.270000000000000018 UNITS SC (22:09)
[2023-08-29 23:39] VITALS: BP 132/86
[2023-08-30] MEDS: TYLENOL 1000 MG PO ×3 (05:00→20:11)
[2023-08-30 07:02] LABS: Glucose - Point of Care 135 mg/dl (70-99)
[2023-08-30 07:05] VITALS: BP 138/88
[2023-08-30] MEDS: NOVOLOG FLEXPEN-LOW RESISTANCE SC ×3 (07:12→17:47)
[2023-08-30] MEDS: SANTYL OINTMENT 1 APPLIC TOPICAL (08:12)
[2023-08-30] MEDS: COLACE 100 MG PO ×2 (08:12→20:11)
[2023-08-30] MEDS: OXYCONTIN (CONTROLLED RELEASE) 20 MG PO ×3 (08:12→23:17)
[2023-08-30] MEDS: MIRALAX 17 GRAMS PO (08:12)
[2023-08-30] MEDS: NOVOLOG FLEXPEN 13 UNITS SC ×3 (08:13→17:47)
[2023-08-30] MEDS: DESENEX/MITRAZOL/ZEASORB 1 APPLIC TOPICAL ×2 (08:16→20:12)
[2023-08-30] MEDS: DAKIN'S SOLUTION 0.125% 1/4 STRENGTH 473 ML TOPICAL (08:16)
--- NOTE | 2023-08-30 08:59 | W.PN.HOSP.TC ---
Today's Communication/Plan
-
await dc management
Assessment / Plan
Assessment / Plan
Sepsis (fever, tachycardia) secondary to severe right breast cellulitis with necrosis
-bcx 08/17 with gram-positive cocci in clusters appears contaminant,bcx from 08/18 NGTD. Wound culture with Proteus
US neg for discrete abscess; does have significant edema. Difficult to differentiate between neoplastic and infectious etiologies.
Tissue pathologic specimen: Skin and subcutaneous tissue with abscess, acute necrotizing inflammation and fat necrosis. Apparently no neoplastic tissue identified
s/p debridment by Dr Nelson. cultures with proteus. pathology consistent with necrosis. No evidence of neoplasm noted. s/p further debridement in the OR 08/24
-ID following; abx changed to unasyn-> levaquin/augmentin. given persistent Proteus and wound ID decided to start ertapenem. Patient to go home eventually on ertapenem. CM for home abx
-Breast surgeon following; spoke with Dr Nelson and patient needs to follow up with her and wound care outpatient. they will asesss the need for wound VAC outpatient.
-Pain control; added standing tylenol,added oxycontin inc to 20mg. adjusted timing to q8h and having better pain control, dilaudid prn For severe pain. Oxycodone as needed, increased to 10mg for breakthrough pain. Patient will need to follow-up
with pain management outpatient. During dressing change pt is having significant pain, even though received IV Dilaudid prior to dressing change. Reviewed with pt that narcotic analgesics are a temporary modality, they can be very addictive and
importance of tapering medication to off as soon as feasible post dc. She voiced her understanding.
wound management
afebrile since 08/22
Call placed to Coby Reich CM, regarding potential dc. She states that [facility] would prefer holding dc until Thursday, when they would have time to work with pt prior to dc and hopefully by then pain would have decreased sufficiently to allow oral
agents only, even with dressing change. this is a realistic plan, discussed with pt and and they are agreeable
# Hyperglycemia
A1c >12; now with diabetes, new onset
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
cw insulin, patient was on metformin and now discontinued due to intolerance
glu well controlled 107-174 range, will continue current insulin dosing. Pt aware of need for close follow up
hypokalemia
resolved
Hyponatremia
resolved
Constipation
Laxatives
now with BM; improving
Metabolic acidosis on admission
Now improved, stop bicarb
Obesity likely 2/2 excess calories
Anxiety
IBS
Pt reports that her prior PCP retired. Requested that prior to 08/31 she start making calls to medical offices near where she lives and set up appt with new physician/PCP to establish BRITTANY especially for needed diabetic control
Full code
DVT prophylaxis-lovenox
continue current abx and insulin, adjust freq of oxycontin
Anticipated Discharge: Within 24 hours
Subjective/Interval History
-
Date of Service: August 30, 2023
In good spirits
Objective Data
-
Vital Signs:
Vital Signs
Temp Pulse Resp BP Pulse Ox
97.9 F 84 18 138/88 96
08/30/23 07:05 08/30/23 07:05 08/30/23 07:05 08/30/23 07:05 08/30/23 07:05
I&O
08/29/23 08/30/23 08/31/23
06:59 06:59 06:59
Intake Total 840 / 840 1700 / 1700
Balance 840 / 840 1700 / 1700
Review of Systems
-
History Source: Patient and Coordinated Provider
Constitutional: Denies Fever
EENT: Reports No Symptoms Reported
Respiratory: Reports No Symptoms
Cardiac: Reports No Symptoms
Abdomen/GI: Reports No Symptoms
Breast: Reports Pain (post surgical wound intervention with significant pain)
Genitourinary: Reports No Symptoms
Neuro: Reports No Symptoms
Physical Exam
-
General: Well Developed, Well Nourished and No Apparent Distress
HEENT: Normocephalic, Atraumatic and Moist Mucous Membranes
Respiratory: Clear to Auscultation; Negative Wheezes, Rales or Rhonchi
Cardiac: Regular Rhythm and S1/S2
Breast: Deferred by me (not having dressing change currently)
GI: Soft and Nontender
Neuro: Awake, Alert and Oriented
[2023-08-30 11:52] LABS: Glucose - Point of Care 145 mg/dl (70-99)
[2023-08-30] MEDS: DILAUDID 1 MG IV (14:43)
[2023-08-30] MEDS: FLUSH (NSS) 2 FLUSH IV ×2 (14:45→16:56)
[2023-08-30 15:05] VITALS: BP 149/95
[2023-08-30] MEDS: LOVENOX 40 MG SC (16:55)
[2023-08-30] MEDS: INVANZ 60 MG IV (16:55)
[2023-08-30 17:46] LABS: Glucose - Point of Care 126 mg/dl (70-99)
[2023-08-30 21:25] LABS: Glucose - Point of Care 139 mg/dl (70-99)
[2023-08-30] MEDS: LANTUS 0.270000000000000018 UNITS SC (22:03)
[2023-08-30 23:14] VITALS: BP 152/82
[2023-08-31] MEDS: TYLENOL 1000 MG PO ×3 (04:43→20:15)
[2023-08-31] MEDS: ROXICODONE 10 MG PO ×2 (06:49→12:49)
[2023-08-31 07:03] VITALS: BP 123/75
--- NOTE | 2023-08-31 07:44 | PN.DE.MGMTRT ---
Insulin Management
- -
: Diabetes Management Consult:
53 year old female who presented with severe cellulitis and necrosis of the right breast concerning for Malignancy.
PMH: IBS and Anxiety. New dx of T2DM, A1C 12.9%. Glucose on admission 316, FBG 315 this AM.
Pt is currently in the OR for debridement and not available for interview.
Currently on low corrective insulin only.
Will start Lantus 12 units, 1st dose @HS, AC NovoLog 4 units and low corrective with meals.
Hold AC NovoLog if pt remains NPO after procedure and utilize corrective insulin.
Change diet to 1800 kris, Accucheks AC/HS and 3am blood sugar.
start Metformin 500mg BID, 1st dose tomorrow AM.
Will provide meter and Insulin instructions when pt is ready for diabetes Education.
Will follow closely and make necessary insulin dose adjustments as A1C 12.9%
08/19/2023: Diabetes Management Follow up
POD 1 s/p debridement R breast. Patient consumed dinner, glucose trended up to 306. Will increase AC NovoLog to 6 units. Metformin 500 mg BID to start this AM. Received 12 units Lantus @ HS. Fasting glucose 318. Will increase hs Lantus to 20
units. Will follow.
08/19/2023: Diabetes Education
Patient awake and alert. States she has not been to a doctor in 4 or more years. Provided Contour Next glucose monitor and instructed on procedure to test glucose. Patient states she is very familiar because most of her family has diabetes. I
discussed her A1C of 12.9%, which she knew was high, and goal to get down to less than 7%. Instructed on use of prefilled insulin pen. Will ask nursing to have patient prepare and take her insulin with pen to reinforce steps. Printed step by step
instructions given to patient as well.
08/20/2023: Diabetes Management F/U:
Patient improving. Glucose remains elevated > 200. Will again increase Lantus to 25 units and AC NovoLog to 10 units. She has given herself insulin pre lunch and dinner and did well. Will reinforce steps for self injection and s & S hypoglycemia
and treatment.
08/21/2023: Diabetes Management F/U:
Glucose remains elevated, FBG 196 this AM, Premeal range also >200 (228-248), requiring 1-2 units of corrective insulin
Will increase Lantus to 27 units and AC NovoLog to 12 units.
Will follow closely and make necessary insulin dose adjustments as A1C 12.9%
08/24/2023: Diabetes Management F/U:
Pt NPO for OR today. Received half dose of Lantus @ HS.
Glucose stable and in range 110-153, FBG 116 this AM.
Her breakfast NovoLog dose was held. Will make no changes to current regimen: Lantus to 27 units and AC NovoLog to 12 units.
Pt reports that she has been having severe Nausea and diarrhea since start of Metformin, she does not want to continue taking it, will D/C MFM.
Spoke to pt and - Pat at length regarding lifestyle modification: Exercise, CHO counting (encouraged non-starchy veggies and salads), monitoring and taking her meds, suggested XL MFM, pt agreeable but would like to wait until she has d/w her
PCP.
Will follow closely and make necessary insulin dose adjustments as A1C 12.9%
08/25/2023 Diabetes Management Follow up
S/P OR yesterday for debridement breast. Glucose stable on current regimen, Lantus 27 units @ HS with 12 units NovoLog AC. Will make no change to regimen today. Metformin has been stopped due to diarrhea and nausea.
08/26/2023 Diabetes Management Follow up
Patient glucose stable, 113 to 167, on current regimen Lantus 27 units at HS with NovoLog 12 units AC. Patient has administered insulin with nursing supervision and has done well. She has been given a glucose monitor and instructed on times to
test and target range, will reinforce today.
08/27/2023 Diabetes Management Follow up
Glucose stable, did require corrective insulin with lunch and dinner. Will increase AC NovoLog to 13 units. Fasting glucose 129. Will continue Lantus 27 units @ HS. Patient has self injected and feels comfortable.
08/28/2023: Diabetes Management F/U:
Glucose stable and in range 107-138, FBG 134 this AM, on current regimen Lantus 27 units at HS with NovoLog 13 units AC.
Will make no change to regimen today. Metformin has been stopped due to diarrhea and nausea.
08/31/2023: Diabetes Management F/U:
Glucose stable and in range 126 to 145, POC 135 this AM, on current regimen Lantus 27 units at HS with NovoLog 13 units AC.
Will make no change to current regimen. Will follow closely and make necessary insulin dose adjustments as A1C 12.9%
Diabetes History
- -
Type of Diabetes: 2 requiring insulin
Pre-Admission Diabetes Regimen
Lab Results
Hemoglobin A1c 12.9 % (4.0-5.6) H 08/18/23 05:03
Insulin Pump Settings
IP Diabetes Regimen
08/30/23 08/30/23 08/30/23
11:51 17:45 21:23
POC Glucose 145 H 126 H 139 H
Meal type: Dinner
Meal type: Breakfast
Amount consumed: 100%
Amount consumed: 100%
Patient Education
[2023-08-31 08:12] LABS: Glucose - Point of Care 135 mg/dl (70-99)
[2023-08-31] MEDS: NOVOLOG FLEXPEN-LOW RESISTANCE SC (08:12)
[2023-08-31] MEDS: NOVOLOG FLEXPEN 13 UNITS SC ×3 (08:13→17:11)
[2023-08-31] MEDS: SANTYL OINTMENT 1 APPLIC TOPICAL (08:14)
[2023-08-31] MEDS: MIRALAX 17 GRAMS PO (08:14)
[2023-08-31] MEDS: OXYCONTIN (CONTROLLED RELEASE) 20 MG PO ×3 (08:14→23:27)
[2023-08-31] MEDS: COLACE 100 MG PO ×2 (08:15→20:16)
[2023-08-31] MEDS: DESENEX/MITRAZOL/ZEASORB 1 APPLIC TOPICAL ×2 (08:15→20:16)
[2023-08-31] MEDS: DAKIN'S SOLUTION 0.125% 1/4 STRENGTH 473 ML TOPICAL (08:15)
[2023-08-31 11:18] LABS: Glucose - Point of Care 161 mg/dl (70-99)
[2023-08-31] MEDS: NOVOLOG FLEXPEN-LOW RESISTANCE 1 UNITS SC ×2 (11:20→17:10)
--- NOTE | 2023-08-31 11:28 | W.PN.HOSP.TC ---
Today's Communication/Plan
-
monitor vitals
see plan
pain control
set up home abx and home care
likely dc tomorrow if pain is controlled on PO meds
Assessment / Plan
Assessment / Plan
Sepsis (fever, tachycardia) secondary to severe right breast cellulitis with necrosis
-bcx 08/17 with gram-positive cocci in clusters appears contaminant,bcx from 08/18 NGTD. Wound culture with Proteus
US neg for discrete abscess; does have significant edema. Difficult to differentiate between neoplastic and infectious etiologies.
Tissue pathologic specimen: Skin and subcutaneous tissue with abscess, acute necrotizing inflammation and fat necrosis. Apparently no neoplastic tissue identified
s/p debridment by Dr Nelson. cultures with proteus. pathology consistent with necrosis. No evidence of neoplasm noted. s/p further debridement in the OR 08/24
-ID following; abx changed to unasyn-> levaquin/augmentin. given persistent Proteus and wound ID decided to start ertapenem. Patient to go home eventually on ertapenem. CM for home abx
-Breast surgeon following; spoke with Dr Nelson and patient needs to follow up with her and wound care outpatient. they will asesss the need for wound VAC outpatient.
-Pain control; added standing tylenol,added oxycontin inc to 20mg. adjusted timing to q8h and having better pain control, dilaudid prn For severe pain. Oxycodone as needed, increased to 10mg for breakthrough pain. Patient will need to follow-up
with pain management outpatient. During dressing change pt is having significant pain, even though received IV Dilaudid prior to dressing change. Reviewed with pt that narcotic analgesics are a temporary modality, they can be very addictive and
importance of tapering medication to off as soon as feasible post dc. She voiced her understanding.
wound management
afebrile since 08/22
home abx needs to be set up; patient to try PO pain meds today prior to dressing change and see if pain is tolerable; likely dc tomorrow
# Hyperglycemia
A1c >12; now with diabetes, new onset
diabetes [employer] following
cw insulin, patient was on metformin and now discontinued due to intolerance
glu well controlled; will continue current insulin dosing. Pt aware of need for close follow up
hypokalemia
resolved
Hyponatremia
resolved
Constipation
Laxatives
now with BM; improving
Metabolic acidosis on admission
Now improved, stop bicarb
Obesity likely 2/2 excess calories
Anxiety
IBS
Pt reports that her prior PCP retired. Requested that prior to dc 08/31 she start making calls to medical offices near where she lives and set up appt with new physician/PCP to establish BRITTANY especially for needed diabetic control
Full code
DVT prophylaxis-lovenox
continue current abx and insulin, adjust freq of oxycontin
General: Well Developed, Well Nourished and No Apparent Distress
HEENT: NormoCephalic, Moist mucous membranes and Atraumatic
Respiratory: Clear
Cardiac: RRR
GI: S Non Tender, Non Distended
Rectal: Deferred by Provider
Neuro: Nonfocal/grossly intact
Anticipated Discharge: Within 24 hours
Subjective/Interval History
-
Date of Service: August 31, 2023
has some pain
Objective Data
-
Vital Signs:
Vital Signs
Temp Pulse Resp BP Pulse Ox
97.3 F 72 18 123/75 95
08/31/23 07:03 08/31/23 07:03 08/31/23 07:03 08/31/23 07:03 08/31/23 07:03
I&O
08/30/23 08/31/23 09/01/23
06:59 06:59 06:59
Intake Total 1700 / 1700 1700 / 1700
Balance 1700 / 1700 1700 / 1700
[2023-08-31 15:39] VITALS: BP 155/82
--- NOTE | 2023-08-31 15:50 | CM ---
Anticipate discharge on 09/01/23 with [facility] for IV/AB and VN for wound care. Met and spoke with patient and . has been trained on dressing changes.
[2023-08-31 17:06] LABS: Glucose - Point of Care 157 mg/dl (70-99)
[2023-08-31] MEDS: LOVENOX 40 MG SC (17:10)
[2023-08-31] MEDS: INVANZ 60 MG IV (17:10)
[2023-08-31 21:33] LABS: Glucose - Point of Care 147 mg/dl (70-99)
[2023-08-31] MEDS: LANTUS 0.270000000000000018 UNITS SC (21:44)
[2023-08-31 23:42] VITALS: BP 129/71
[2023-09-01] MEDS: TYLENOL PO (06:13)
--- NOTE | 2023-09-01 07:14 | PN.DE.MGMTRT ---
Insulin Management
- -
: Diabetes Management Consult:
53 year old female who presented with severe cellulitis and necrosis of the right breast concerning for Malignancy.
PMH: IBS and Anxiety. New dx of T2DM, A1C 12.9%. Glucose on admission 316, FBG 315 this AM.
Pt is currently in the OR for debridement and not available for interview.
Currently on low corrective insulin only.
Will start Lantus 12 units, 1st dose @HS, AC NovoLog 4 units and low corrective with meals.
Hold AC NovoLog if pt remains NPO after procedure and utilize corrective insulin.
Change diet to 1800 kris, Accucheks AC/HS and 3am blood sugar.
start Metformin 500mg BID, 1st dose tomorrow AM.
Will provide meter and Insulin instructions when pt is ready for diabetes Education.
Will follow closely and make necessary insulin dose adjustments as A1C 12.9%
08/19/2023: Diabetes Management Follow up
POD 1 s/p debridement R breast. Patient consumed dinner, glucose trended up to 306. Will increase AC NovoLog to 6 units. Metformin 500 mg BID to start this AM. Received 12 units Lantus @ HS. Fasting glucose 318. Will increase hs Lantus to 20
units. Will follow.
08/19/2023: Diabetes Education
Patient awake and alert. States she has not been to a doctor in 4 or more years. Provided Contour Next glucose monitor and instructed on procedure to test glucose. Patient states she is very familiar because most of her family has diabetes. I
discussed her A1C of 12.9%, which she knew was high, and goal to get down to less than 7%. Instructed on use of prefilled insulin pen. Will ask nursing to have patient prepare and take her insulin with pen to reinforce steps. Printed step by step
instructions given to patient as well.
08/20/2023: Diabetes Management F/U:
Patient improving. Glucose remains elevated > 200. Will again increase Lantus to 25 units and AC NovoLog to 10 units. She has given herself insulin pre lunch and dinner and did well. Will reinforce steps for self injection and s & S hypoglycemia
and treatment.
08/21/2023: Diabetes Management F/U:
Glucose remains elevated, FBG 196 this AM, Premeal range also >200 (228-248), requiring 1-2 units of corrective insulin
Will increase Lantus to 27 units and AC NovoLog to 12 units.
Will follow closely and make necessary insulin dose adjustments as A1C 12.9%
08/24/2023: Diabetes Management F/U:
Pt NPO for OR today. Received half dose of Lantus @ HS.
Glucose stable and in range 110-153, FBG 116 this AM.
Her breakfast NovoLog dose was held. Will make no changes to current regimen: Lantus to 27 units and AC NovoLog to 12 units.
Pt reports that she has been having severe Nausea and diarrhea since start of Metformin, she does not want to continue taking it, will D/C MFM.
Spoke to pt and - Pat at length regarding lifestyle modification: Exercise, CHO counting (encouraged non-starchy veggies and salads), monitoring and taking her meds, suggested XL MFM, pt agreeable but would like to wait until she has d/w her
PCP.
Will follow closely and make necessary insulin dose adjustments as A1C 12.9%
08/25/2023 Diabetes Management Follow up
S/P OR yesterday for debridement breast. Glucose stable on current regimen, Lantus 27 units @ HS with 12 units NovoLog AC. Will make no change to regimen today. Metformin has been stopped due to diarrhea and nausea.
08/26/2023 Diabetes Management Follow up
Patient glucose stable, 113 to 167, on current regimen Lantus 27 units at HS with NovoLog 12 units AC. Patient has administered insulin with nursing supervision and has done well. She has been given a glucose monitor and instructed on times to
test and target range, will reinforce today.
08/27/2023 Diabetes Management Follow up
Glucose stable, did require corrective insulin with lunch and dinner. Will increase AC NovoLog to 13 units. Fasting glucose 129. Will continue Lantus 27 units @ HS. Patient has self injected and feels comfortable.
08/28/2023: Diabetes Management F/U:
Glucose stable and in range 107-138, FBG 134 this AM, on current regimen Lantus 27 units at HS with NovoLog 13 units AC.
Will make no change to regimen today. Metformin has been stopped due to diarrhea and nausea.
08/31/2023: Diabetes Management F/U:
Glucose stable and in range 126 to 145, POC 135 this AM, on current regimen Lantus 27 units at HS with NovoLog 13 units AC.
Will make no change to current regimen. Will follow closely and make necessary insulin dose adjustments as A1C 12.9%
09/01/2023 Diabetes Management Follow up
Glucose remains stable, 135 to 161 on current regimen, 13 units novolog AC with 27 units lantus @ HS. Will follow.
Diabetes History
- -
Type of Diabetes: 2 requiring insulin
Pre-Admission Diabetes Regimen
Lab Results
Hemoglobin A1c 12.9 % (4.0-5.6) H 08/18/23 05:03
Insulin Pump Settings
IP Diabetes Regimen
08/31/23 08/31/23 08/31/23
08:11 11:16 17:05
POC Glucose 135 H 161 H 157 H
08/31/23
21:30
POC Glucose 147 H
Meal type: Dinner
Meal type: Lunch
Meal type: Breakfast
Meal type: Breakfast
Amount consumed: 100%
Amount consumed: 100%
Amount consumed: 100%
Amount consumed: 100%
Patient Education
[2023-09-01 07:30] VITALS: BP 147/81
[2023-09-01 07:54] LABS: Glucose - Point of Care 128 mg/dl (70-99)
[2023-09-01] MEDS: NOVOLOG FLEXPEN-LOW RESISTANCE SC ×2 (08:26→17:47)
[2023-09-01] MEDS: SANTYL OINTMENT 1 APPLIC TOPICAL (08:37)
[2023-09-01] MEDS: COLACE 100 MG PO (08:38)
[2023-09-01] MEDS: DESENEX/MITRAZOL/ZEASORB 1 APPLIC TOPICAL (08:38)
[2023-09-01] MEDS: DAKIN'S SOLUTION 0.125% 1/4 STRENGTH 473 ML TOPICAL (08:38)
[2023-09-01] MEDS: MIRALAX 17 GRAMS PO (08:38)
[2023-09-01] MEDS: NOVOLOG FLEXPEN 13 UNITS SC ×2 (08:39→12:43)
[2023-09-01] MEDS: OXYCONTIN (CONTROLLED RELEASE) 20 MG PO ×2 (08:42→15:57)
--- NOTE | 2023-09-01 09:24 | W.PN.ID1 ---
Date of Service
Date of Service: September 01, 2023
Today's Communication
- Continue ertapenem through 09/07
- midline placed
- path negative for carcinoma
- has stayed in house longer than I initially anticipated, pending dressing change today may not need follow up in ID clinic
Assessment / Plan
Breast Cellulitis/abscess
DM2 - new diagnosis
Class II obesity
- s/p�Incision and drainage right breast abscess x2
- Continue ertapenem through 09/07
- midline placed
- path negative for carcinoma
- has stayed in house longer than I initially anticipated, pending dressing change today may not need follow up in ID clinic
����������������������������������������������������������
Chief Complaint
-: Other (Right breast cellulitis / abscess)
Subjective / Review of Systems
afebrile
bp stable
no labs for several days
PICC no erythema, warmth, tenderness or drainage
surgical site drainage decreasing and no odor per patient
Vital Signs / Physical Exam
Vital Signs
Vital Signs
Temp Pulse Resp BP Pulse Ox
98.3 F 78 18 147/81 95
09/01/23 07:30 09/01/23 07:30 09/01/23 07:30 09/01/23 07:30 09/01/23 07:30
Physical Exam
Constitutional: No Acute Distress
Cardiovascular: Regular Rate
Pulmonary: Symmetric and Non Labored
Gastrointestinal: Non Distended
Wound: Other (asked RN to notify me when dressing change planned)
Lines: PICC
Objective Data
Lab Data
Lab Results
08/28/23 06:03
08/28/23 06:02
Estimated Creat Clear 117 ml/min 08/28/23 06:02
Lactic Acid 1.5 mmol/L (0.7-2.0) 08/17/23 18:29
Total Bilirubin 0.6 mg/dl (0.2-1.3) 08/26/23 04:40
AST 24 U/L (14-36) 08/26/23 04:40
ALT 26 U/L (0-35) 08/26/23 04:40
Alkaline Phosphatase 253 U/L (38-126) H 08/26/23 04:40
Most recent labs reviewed.
Micro Results:
08/24/23 13:51 Wound Culture - Final
Breast - Right Proteus mirabilis
Gram Stain - Final
08/19/23 15:00 Blood Culture - Final
Blood/Venous No Growth - Final Report
08/18/23 18:15 Blood Culture - Final
Blood/Venous No Growth - Final Report
08/18/23 15:30 Wound Culture - Final
Abscess Proteus mirabilis
Gram Stain - Final
08/18/23 15:30 Anaerobic Culture - Final
Abscess
08/17/23 18:29 Blood Culture - Final
Blood/Venous Coagulase neg. staphylococcus
Additional testing on request
Gram Stain - Final
08/17/23 19:30 Wound Culture - Final
Breast - Right Proteus mirabilis
Gram Stain - Final
Wound/abscess/other Cult Final 08/26/23-0854
Few Proteus mirabilis
Organism 1 Proteus mirabilis
1. Proteus mirabilis
M.I.C. RX
--------- ---
Amoxicillin/Potas. Clavulanate <=8/4 S
Ampicillin <=8 S
Ampicillin/Sulbactam <=8/4 S
Cefazolin <=2 S
Ertapenem <=0.5 S
Ciprofloxacin <=0.25 S
Gentamicin <=4 S
Levofloxacin <=0.5 S
Meropenem <=1 S
Piperacillin/Tazobactam <=16 S
Tobramycin <=4 S
Trimethoprim/Sulfamethoxazole <=2/38 S
[2023-09-01 11:43] LABS: Glucose - Point of Care 170 mg/dl (70-99)
--- NOTE | 2023-09-01 12:27 | W.PN.HOSP.TC ---
Today's Communication/Plan
-
Monitor vital signs see plan
Pain control
Antibiotics
Discharge today
Time of discharge 38 minutes
Assessment / Plan
Assessment / Plan
Sepsis (fever, tachycardia) secondary to severe right breast cellulitis with necrosis
-bcx 08/17 with gram-positive cocci in clusters appears contaminant,bcx from 08/18 NGTD. Wound culture with Proteus
US neg for discrete abscess; does have significant edema. Difficult to differentiate between neoplastic and infectious etiologies.
Tissue pathologic specimen: Skin and subcutaneous tissue with abscess, acute necrotizing inflammation and fat necrosis. Apparently no neoplastic tissue identified
s/p debridment by Dr Nelson. cultures with proteus. pathology consistent with necrosis. No evidence of neoplasm noted. s/p further debridement in the OR 08/24
-ID following; abx changed to unasyn-> levaquin/augmentin. given persistent Proteus and wound ID decided to start ertapenem. Patient to go home eventually on ertapenem. CM for home abx
-Breast surgeon following; spoke with Dr Nelson and patient needs to follow up with her and wound care outpatient. they will asesss the need for wound VAC outpatient.
-Pain control; added standing tylenol,added oxycontin inc to 20mg. adjusted timing to q8h and having better pain control, dilaudid prn For severe pain. Oxycodone as needed, increased to 10mg for breakthrough pain. Patient will need to follow-up
with pain management outpatient. During dressing change pt is having significant pain, even though received IV Dilaudid prior to dressing change. Reviewed with pt that narcotic analgesics are a temporary modality, they can be very addictive and
importance of tapering medication to off as soon as feasible post dc. She voiced her understanding.
wound management
afebrile since 08/22
home abx needs to be set up; patient to try PO pain meds today prior to dressing change and see if pain is tolerable; likely dc tomorrow
# Hyperglycemia
A1c >12; now with diabetes, new onset
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
cw insulin, patient was on metformin and now discontinued due to intolerance
glu well controlled; will continue current insulin dosing. Pt aware of need for close follow up
hypokalemia
resolved
Hyponatremia
resolved
Constipation
Laxatives
now with BM; improving
Metabolic acidosis on admission
Now improved, stop bicarb
Obesity likely 2/2 excess calories
Anxiety
IBS
Pt reports that her prior PCP retired. Requested that prior to dc 08/31 she start making calls to medical offices near where she lives and set up appt with new physician/PCP to establish [facility]ITTANY especially for needed diabetic control. Patient has been
getting outpatient appointment
Full code
DVT prophylaxis-lovenox
continue current abx and insulin, adjust freq of oxycontin
General: Well Developed, Well Nourished and No Apparent Distress
HEENT: NormoCephalic, Moist mucous membranes and Atraumatic
Respiratory: Clear
Cardiac: RRR
GI: S Non Tender, Non Distended
Rectal: Deferred by Provider
Neuro: Nonfocal/grossly intact
Anticipated Discharge: Today
Subjective/Interval History
-
Date of Service: September 01, 2023
Tolerated oxycodone
Objective Data
-
Vital Signs:
Vital Signs
Temp Pulse Resp BP Pulse Ox
98.3 F 78 18 147/81 95
09/01/23 07:30 09/01/23 07:30 09/01/23 07:30 09/01/23 07:30 09/01/23 08:00
I&O
08/31/23 09/01/23 09/02/23
06:59 06:59 06:59
Intake Total 1700 / 1700 1880 / 1880
Output Total 3 / 3
Balance 1700 / 1700 1877 / 1877
--- NOTE | 2023-09-01 12:33 | W.DCSUMMARY ---
Discharge Summary
Discharge Data
Date of Admission: 08/17/23
Date of Discharge: 09/01/23
-
Pending Results: No
Hospital Course
53-year-old female with history of anxiety, IBS came to the hospital with sepsis secondary to severe right breast cellulitis with necrosis. Patient was seen by breast surgeon Dr. Nelson who took patient for debridement. Patient was also seen by
infectious disease throughout hospitalization. Blood cultures initially grew gram-positive cocci in clusters which was considered to be contaminant. Further blood cultures were negative. Wound culture did grew Proteus. Patient was started on
antibiotics per infectious disease. Prior to discharge patient antibiotics was switched to ertapenem. Patient hospital course was complicated with persistent pain requiring aggressive pain management. Patient pain finally was tolerable on
OxyContin and oxycodone. Patient was instructed to follow-up closely with her primary care provider for further pain medication titration. While patient was in the hospital she had severe hyperglycemia and hemoglobin A1c was greater than 12
consistent with diabetes. Patient was then seen by diabetes nurse practitioner. Patient was started on insulin. Patient was also initially started on metformin however it was discontinued since patient did not tolerate it well. Patient insulin
dosing was titrated throughout hospitalization. On discharge patient was instructed to follow-up closely outpatient for further diabetes control. Prior to discharge patient was aware to follow-up closely with Dr. Nelson, wound care center
outpatient. Once her pain was controlled with oral medications, she was then discharged home with close follow-up with all her physicians outpatient.
Discharge Plan
-
Patient Disposition: Home with Home Care
Discharge Diagnosis/Procedures: Sepsis secondary to severe right breast cellulitis with necrosis
Hyponatremia
Hypokalemia
New onset diabetes mellitus
Metabolic acidosis
Diet: Diabetic, Carb Controlled
Activity: As tolerated
Driving Restrictions: As prior to admission
Bathing Restrictions: None
Activity Restrictions/Additional Instructions:
Wound Care Instructions
R breast wounds-rinse with saline or can rinse wounds with saline while in shower, pack medial and anterior wounds with 1/4 strength Dakin's solution moistened Kerlix packing (use the 2.25 inch size), and for lateral wound, apply Santyl ointment
with 1/4 strength Dakin's moistened gauze pad, cover with dry gauze pads, ABD pads, secure with surgical bra, change packing daily and change outer dressings twice a day and as needed for drainage (add a thin disposable underpad between ABD pads and
bra as needed for copious drainage).
Miconazole powder to sacral crease, groin folds affected areas twice a day.
Follow up with breast surgeon Dr. Nelson as instructed.
Follow up at wound care center early next week, appointment on 08/31/23 at 12:30pm. Call if need to change appointment.
Referrals:
Lily Nelson MD [Active] - in one week
NONE,* [Family Provider] - in less than 1 week
Libby Del Angel MD [Active] - in less than 1 week
Prescriptions:
New
(DME) Contour Next Test Strips Strip
Qty: 200 0RF
Rx Instructions:
Test before each meal and HS As Directed
insulin aspart U-100 [Novolog FlexPen U-100 Insulin] 100 unit/mL (3 mL) Insulin Pen
13 unit SC AC Qty: 5 0RF
insulin glargine [Lantus Solostar U-100 Insulin] 100 unit/mL (3 mL) Insulin Pen
27 unit SC DAILY Qty: 5 0RF
(DME) pen needle, diabetic [BD Ultra-Fine Abbie Pen Needle] 32 gauge x 5/32' Needle
Qty: 200 0RF
Rx Instructions:
Use one needle for each insulin injection ACHS As Directed
(DME) lancets [Color Lancets] 21 gauge Misc
Qty: 200 0RF
Rx Instructions:
Use one lancet to test glucose before each meal and HS As Directed
docusate sodium 100 mg Capsule
100 mg PO BID Qty: 60 0RF
Dakin's Solution 0.125 % Solution
1 applic topical DAILY Qty: 473 0RF
miconazole nitrate [Miconazorb AF] 2 % Powder
1 applic topical BID Qty: 85 0RF
Ertapenem [Invanz] 1000 MG
0.9% Sodium Chloride [Nss] 50 ML
120 mls/hr IV Q24H
Ordered By: Pavan Vasquez MD
Last Taken: 08/31/23 17:10 60 mls
polyethylene glycol 3350 [HealthyLax] 17 gram Powder In Packet
17 g PO DAILY Qty: 30 0RF
acetaminophen [Pain Relief ES (acetaminophen)] 500 mg Tablet
1,000 mg PO Q8H Qty: 0 0RF
Santyl 250 unit/gram Ointment
1 applic topical DAILY Qty: 90 0RF
oxycodone [OxyContin] 20 mg Tablet,Oral Only,Ext.Rel.12 Hr
20 mg PO Q8 Qty: 30 0RF
oxycodone 5 mg Tablet
5 mg PO Q4HPRN PRN (Reason: moderate to severe pain) Qty: 30 0RF
Continued
acetaminophen [Tylenol Extra Strength] 500 mg Tablet
500 mg PO BIDPRN PRN (Reason: mild pain)
famotidine [Pepcid] 20 mg Tablet
20 mg PO DAILY PRN (Reason: indigestion)
ibuprofen [Advil] 200 mg Tablet
400 mg PO Q6H PRN (Reason: mild pain)
Centrum Silver Women 8 mg iron-400 mcg-50 mcg Tablet
1 tab PO DAILY
Probiotic For Digestion
1 tab PO DAILY
Discharge Orders:
Discharge Patient (As Directed); Ordered 09/01/23
Ordered By: Pavan Vasquez
Discharge Date and Time
Discharge Date/Time: 09/01/23 18:00
[2023-09-01] MEDS: ROXICODONE 5 MG PO (12:42)
[2023-09-01] MEDS: NOVOLOG FLEXPEN-LOW RESISTANCE 1 UNITS SC (12:43)
[2023-09-01] MEDS: TYLENOL 1000 MG PO (12:44)
--- NOTE | 2023-09-01 12:49 | VNURNOTE ---
Home Health Liaison met with patient and spouse Warren at 1145 to discuss [facility] nurse visits, schedule and homebound status. Patient is agreeable and understands that visits at home will be 2-3 x per week to assess and teach medical management and
wound care. Warren is able to assist with wound care. Patient has an appt at [facility] 09/03 and will possibly be getting a wound vac. New PCP appt 09/17, Dr Nelson has agreed to follow patient for [facility] home care orders.
[facility] brochure provided with contact information. Patient is aware that [facility] will contact them for start of care in 1-2 days after discharge from .
[facility] referral updated in [facility].
--- NOTE | 2023-09-01 14:17 | CM ---
CM following re: d/c planning
Chart reviewed
Pt is medically stable for d/c
Pt to continue IV antibiotics through 09/07
CM called and spoke with Alicia from [facility] who confirmed that the delivery of the medications & supplies are at the patient's home
Pt is also set up with [facility] for wound care
No additional d/c needs noted
Patient's spouse to transport the patient home at time of d/c
PLAN; d/c home with [facility] and [facility] home infusion
[2023-09-01 15:19] VITALS: BP 107/71
--- NOTE | 2023-09-01 16:28 | W.PN.UPDATE ---
Update Note
Progress Note Update
attended dressing change
overall healing nicely with good granulation tissue
new eschar lateral to the surgical site - notified Dr Nelson via tiger text
[2023-09-01] MEDS: NOVOLOG FLEXPEN SC (17:45)
== END 2023-09-01 18:00 | disposition home health service (06) | DRG 854 ==
LOC: 2 NORTH 20:33
PROVIDERS: Emergency Medicine; ADMITTING PHYSICIAN Hospitalist; ATTENDING PHYSICIAN Internal Medicine; CONSULT PHYSICIAN Surgery; EMERGENCY PHYSICIAN Emergency Medicine; OTHER PHYSICIAN Student in an Organized Health Care Education/Training Program
PROC: 0JB60ZZ Excision of Chest Subcutaneous Tissue and Fascia, Open Approach (ICD-10-PCS; 2023-08-20)
PROC: 0H9T0ZX Drainage of Right Breast, Open Approach, Diagnostic (ICD-10-PCS; 2023-08-20)
PROC: 0HBT0ZX Excision of Right Breast, Open Approach, Diagnostic (ICD-10-PCS; 2023-08-24)
DX: A41.9 Sepsis, unspecified organism (principal); E11.52 Type 2 diabetes mellitus with diabetic peripheral angiopathy with gangrene; E87.1 Hypo-osmolality and hyponatremia; E87.20 Acidosis, unspecified; N61.1 Abscess of the breast and nipple; E11.65 Type 2 diabetes mellitus with hyperglycemia; E87.6 Hypokalemia; N64.1 Fat necrosis of breast
CPT/HCPCS: 88304; 76642; 80048; 80053; 82962; 83036; 83605; 85025; 87040; 87070; 87071; 87075; 87077; 87147; 87186; 87205; 88341; 88342; 90686; 93005; 96365; 96375; 99285; G0008; J1335